=== PATIENT | female | born 1950 | race Caucasian/White ===

== ENCOUNTER → 2020-08-12 11:05 | Outpatient (BNVA) | payer OTHER, SELFPAY | PROVIDERS: PCP Internal Medicine; Visit Provider Internal Medicine Pulmonary Disease | DX: Z76.89 Persons encountering health services in other specified circumstances (principal) ==

== ENCOUNTER → 2021-03-12 14:00 | Outpatient (BNVA) | payer OTHER, SELFPAY | PROVIDERS: PCP Internal Medicine; Visit Provider Internal Medicine Pulmonary Disease ==

== ENCOUNTER 2021-03-20 10:51 | Outpatient (REF) | payer OTHER, SELFPAY ==
--- NOTE | ~2021-03-20 | CT_ITS ---
EXAMINATION: CT CHEST WITHOUT CONTRAST CLINICAL INFORMATION: Followup pulmonary nodules. COMPARISON: Previous chest CT February 2019 TECHNIQUE: Multidetector volumetric CT imaging of the chest was done. Axial MIP volume rendering provided. Sagittal and coronal reformatted images were obtained. This CT examination was performed using dose optimization techniques as appropriate, variously including the following: *Automated exposure control *Adjustment of mA and/or kV according to patient size (this includes techniques or standardized protocols for targeted exams where dose is matched to indication/reason for exam; i.e. extremities or head) *Use of iterative reconstruction technique DLP: 119 mGy-cm FINDINGS: SAP TRAINER: Increasing elevation of the right hemidiaphragm. LUNGS: There is a 3 mm noncalcified left lower lobe nodule axial image 324 series 7 that is stable. There are small calcified nodules probably representing calcified granulomas that are stable. No new pulmonary nodule is seen. There is increasing right middle lobe atelectasis. There is increased narrowing of the right middle lobe bronchus. MEDIASTINUM: The heart does not appear enlarged. There is a small pericardial effusion that is stable. There are no enlarged hilar or mediastinal lymph nodes. The visualized thyroid gland is unremarkable. PLEURA: There is no pleural effusion. No pleural mass or thickening. AXILLA: No lymphadenopathy. UPPER ABDOMEN: The gallbladder has been removed. There are calcifications in the pancreas and dilatation of the main pancreatic duct suggestive of changes from chronic pancreatitis. There is a 4 x 5 cm cyst in the tail of the pancreas that is unchanged. OSSEOUS STRUCTURES: There are multiple compression fractures. There is a new T7 vertebral body compression fracture. There is a soghskyb-ma-vkevob old-appearing T8 vertebral body compression fracture that is unchanged. There are T11, T12 and L1 vertebral body compression fractures that appear unchanged. There is an old left rib fracture. There are degenerative changes of the spine and shoulder joints. CT/CT chest wo con IMPRESSION: Increasing right middle lobe atelectasis and narrowing of the right middle lobe bronchus. Stable small calcified and noncalcified pulmonary nodules. Multiple thoracic and lumbar compression fractures. There is a new T7 vertebral body compression fracture compared to the 2019 exam. Stable changes of chronic pancreatitis and 4 x 5 cm cyst in the tail of the pancreas.
== END 2021-03-20 10:52 | disposition home or self-care (01) ==
LOC: HO.CT 10:51
PROVIDERS: PCP Internal Medicine; Visit Provider Internal Medicine Pulmonary Disease
DX: R91.8 Other nonspecific abnormal finding of lung field (principal); R05 Cough
CPT/HCPCS: 71250

== ENCOUNTER → 2021-05-29 15:17 | Outpatient (BNVA) | payer OTHER, SELFPAY | PROVIDERS: PCP Internal Medicine; Visit Provider Internal Medicine Pulmonary Disease ==

== ENCOUNTER → 2021-07-08 14:02 | Outpatient (REF) | payer OTHER, SELFPAY ==
--- NOTE | 2021-07-08 14:04 | CA_ITS ---
INDICATIONS: DYSPNEA HT: 5'9 WT: 155 BSA: BP: 137/90 STUDY QUALITY: Fair ECG RHYTHM: Normal sinus rhythm CONCLUSIONS: 1. Normal LV systolic function with LVEF of 60-65% with grade 1 diastolic dysfunction 2. Normal cardiac valvular Doppler 3. Normal RV systolic pressure 4. No gross pericardial effusion FINDINGS: Left ventricle: Left ventricle is of normal size with normal systolic function. Measured LV ejection fraction of 60-65%. There is evidence of mild asymmetric septal hypertrophy without any evidence of obstructive physiology. LV diastolic function is suggestive grade 1 diastolic dysfunction with evidence of impaired relaxation filling pattern as well as normal filling pressures. Atria: Both atria of normal size. There is no clear evidence of any shunting noted at the interatrial septal level Right ventricle: This is of normal size with normal systolic function. Cardiac valves: Aortic valve is moderately thickened and mildly calcified. Aortic valve leaflet mobility is within normal limits. There is no significant aortic stenosis or aortic regurgitation Mitral valve, anterior leaflet is mildly thickened. Posterior leaflet is moderately thickened. There is evidence of mild mitral calcification. There is trace mitral regurgitation without evidence of mitral stenosis Tricuspid valve is of normal morphology with trace tricuspid regurgitation with normal calculated right ventricular systolic pressure with right atrial pressure is within normal limits Pulmonic valve is not well visualized Great vessels: Ascending aorta is of normal size. Transverse aorta is of normal size. There is no significant atherosclerosis noted in the ascending aorta Pulmonary arteries not well visualized IVC is of normal size with normal respiratory collapse consistent with normal right atrial pressures Pericardium: There is no significant pericardial effusion M-MODE/2 MEASUREMENTS: LVd: 3.82 LVs: 2.38 IVSd: 1.33 IVSs: LVPWd: 1.12 LVPWs: ASC.Aorta: 3.3 RVd: 3.49 AO Root: 3.4 LA: 3.9 AV Cusp: LVOT: 2.0 EF% TAPSE: 2.07 OTHER Effusion: Thrombus: Wall Motion: RVSP: 24 mmHg Mitral E/A 76/86.4 = 0.9 E Med. 7.29 E Lat. 8.92 AV Cusps Trieleaflet: DOPPLER MEASUREMENTS: AORTIC PPG 6 mmHg MF mmHg Velocity: 124 m/s Valve Area: 2.09 TRICUSPID Effusion: THROMBUS: Wall Motion: RVSP: 24 mmHg Mitral E/A: 76/86.4 = 0.9 E Med. 7.29 E Lat. 8.92 AV Cusps Trileaflet: DOPPLER MEASUREMENTS: AORTIC PPG 6 mmHg MFG 3 mmHg Velocity 124 m/s Valve Area 2.09 TRICUSPID: PPG 21 mmHg Velocity 131 m/s RA Vol. 8.8 IVC: 1.9 LA Vol. 28.5 RVS 13.2 MTDD
== END ==
LOC: HO.CARD 14:02
PROVIDERS: PCP Internal Medicine; Visit Provider Internal Medicine Pulmonary Disease
DX: R06.00 Dyspnea, unspecified (principal)
CPT/HCPCS: 93306

== ENCOUNTER → 2021-07-20 15:21 | Outpatient (BNVA) | payer OTHER, SELFPAY | PROVIDERS: PCP Internal Medicine; Visit Provider Internal Medicine Pulmonary Disease ==

== ENCOUNTER → 2021-11-19 12:54 | Outpatient (BNVA) | payer OTHER, SELFPAY | PROVIDERS: PCP Internal Medicine; Visit Provider Internal Medicine Pulmonary Disease | DX: Z13.89 Encounter for screening for other disorder (principal) ==

== ENCOUNTER 2021-11-27 12:56 | Outpatient (REF) | payer OTHER, SELFPAY ==
--- NOTE | 2021-11-27 17:20 | PFT_ITS ---
INDICATION: Dyspnea. SPIROMETRY: The FEV1 to FVC of 71% with an FEV1 of 2.2 L, which is 79% predicted and an FVC of 2.09 L which is 84% predicted. No significant response to bronchodilators noted. Maximum voluntary ventilation 78% predicted. LUNG VOLUMES: Total lung capacity 95% predicted with a residual volume 111% predicted. DIFFUSION CAPACITY: DLCO 41% predicted. COMPARISONS: PFTs in 2019. INTERPRETATION: There appears to be an obstructive ventilatory defect. The patient does have a concavity of the expiratory limb, which appears to be mild in severity. No significant response to bronchodilators noted. There is a mild decrease in maximum voluntary ventilation secondary to likely deconditioning. Lung volumes are within normal limits. The patient, however, has a taxdqdti-ie-cfbjyn diffusion impairment likely secondary to emphysema and/or other parenchymal lung conditions should be considered. When compared to 2019, there is a significant decrease in the FVC, significant decrease in the FEV1, a trend decrease in the total lung capacity, and trend decrease in the diffusion capacity. Clinical correlation warranted. MD ASHWIN Stewart/KEENAN / [phone]
== END 2021-11-27 12:57 | disposition home or self-care (01) ==
LOC: HO.RESP 12:56
PROVIDERS: PCP Internal Medicine; Visit Provider Internal Medicine Pulmonary Disease
DX: J44.9 Chronic obstructive pulmonary disease, unspecified (principal); R06.00 Dyspnea, unspecified
CPT/HCPCS: 94060; 94727; 94729

== ENCOUNTER 2022-02-26 08:48 | Outpatient (REF) | payer OTHER, SELFPAY ==
--- NOTE | ~2022-02-26 | CT_ITS ---
EXAMINATION: CT CHEST WITHOUT CONTRAST CLINICAL INFORMATION: Pulmonary nodules. COMPARISON: CT chest 03/20/2021. TECHNIQUE: Multidetector volumetric CT imaging of the chest was done. Axial MIP volume rendering provided. Sagittal and coronal reformatted images were obtained. This CT examination was performed using dose optimization techniques as appropriate, variously including the following: *Automated exposure control *Adjustment of mA and/or kV according to patient size (this includes techniques or standardized protocols for targeted exams where dose is matched to indication/reason for exam; i.e. extremities or head) *Use of iterative reconstruction technique DLP: 196 mGy-cm FINDINGS: REHABILITATION SPECIALIST: Unremarkable. LUNGS: There is 2 mm calcified nodule right lung apex image 82/7, left upper lobe axial image 107/7, 2 mm calcified nodule right upper lobe axial image 206/7, 194/7, 257/7, 3 mm noncalcified nodule left lower lobe axial image 300/7. There are no additional noncalcified nodules seen there is band-like atelectasis right lower lobe, right middle lobe. MEDIASTINUM: The heart size and the great vessels are normal caliber. Tiny pericardial effusion is noted. No abnormal sized mediastinal or hilar lymph nodes. Central trachea and the bronchi appear widely patent. Thyroid lobes are symmetric and normal. There is atherosclerotic calcification of thoracic arch noted. PLEURA: There is no pleural effusion. No pleural mass or thickening. AXILLA: No lymphadenopathy. UPPER ABDOMEN: Visualized liver, spleen and adrenal glands appear unremarkable. Gallbladder removed. There is diffuse calcification seen throughout the pancreas likely from chronic pancreatitis. OSSEOUS STRUCTURES: No lytic or sclerotic process seen. There are compression deformities T7, T8, T11 and T12 vertebra of indeterminate etiology. They are stable compared to last exam 03/20/2021. CT/CT chest wo con IMPRESSION: Stable multiple calcified and solitary noncalcified nodule left lower lobe. There is band-like atelectasis in the right lower lobe and plate-like atelectasis in the right middle lobe. Fleischner guidelines were followed.
== END 2022-02-26 08:49 | disposition home or self-care (01) ==
LOC: HO.CT 08:48
PROVIDERS: PCP Internal Medicine; Visit Provider Internal Medicine Pulmonary Disease
DX: R91.8 Other nonspecific abnormal finding of lung field (principal)
CPT/HCPCS: 71250

== ENCOUNTER 2022-06-24 11:46 | Outpatient (REF) | payer OTHER, SELFPAY ==
--- NOTE | ~2022-06-24 | XR_ITS ---
EXAMINATION: XR LUMBOSACRAL SPINE WITH OBLIQUES CLINICAL INFORMATION: Dorsalgia. COMPARISON: CT chest 02/26/2022. TECHNIQUE: AP, both oblique, and lateral views of the lumbar spine. Lateral view of the lumbosacral junction. FINDINGS: There is maintained lumbar lordosis. The vertebral heights are normal. There is loss of T12 vertebral height. There are degenerative disc changes L2-L3 and L3-L4 disc levels. No aggressive lytic or sclerotic process seen. There is no pars defect or listhesis on oblique views. There is diffuse osteopenia. The paravertebral soft tissues are normal. XR/XR lumbar spine 6V w bending IMPRESSION: 1. T12 vertebral compression fracture likely chronic, unchanged since CT chest 03/10/2022. 2. Degenerative disc changes L2-L3 and L3-L4 disc levels. 3. There is diffuse osteopenia.
== END 2022-06-24 11:47 | disposition home or self-care (01) ==
LOC: HO.XRAY 11:46
PROVIDERS: Visit Provider Nurse Practitioner Family
DX: M47.816 Spondylosis without myelopathy or radiculopathy, lumbar region (principal); M54.9 Dorsalgia, unspecified
CPT/HCPCS: 72114

== ENCOUNTER → 2022-11-19 11:07 | Outpatient (BNVA) | payer OTHER, SELFPAY | PROVIDERS: PCP Internal Medicine; Visit Provider Internal Medicine Pulmonary Disease | DX: Z13.89 Encounter for screening for other disorder (principal) ==

== ENCOUNTER 2023-05-06 13:18 | Outpatient (AMB) | payer OTHER, SELFPAY ==
[2023-05-06 13:20] VITALS: BP 146/82; PULSE 81; O2SAT 98; BMI 24.1
--- NOTE | 2023-05-06 13:20 | MHC.OFFVIS ---
Intake Vital Signs 05/06/23 13:20 Height 5 ft 9 in Weight 163 lb 2.273 oz BMI 24.1 BP 146/82 H Blood Pressure Location Rt brachial Position Sitting Pulse 81 Pulse Source Doppler Pulse Oximetry (%) 98 Oxygen Delivery Method Room Air Intake Visit Reasons: Dyspnea Allergies penicillin V Allergy (Unknown, Verified 05/06/23 13:23) Unknown HPI Dyspnea HPI Details 73-year-old lady, active approximately 30 pack-year smoker, with underlying history of multiple environmental allergies, previously on allergy shots, with prior history of remote septoplasty after nasal fractures, followed for chronic cough and mild asthma-COPD overlap syndrome.? She continues on Trelegy with good control of her underlying symptoms and rarely needs to use her albuterol MDI.? She denies any recent exacerbations. Patient has recently been hospitalized at [facility] for what appears to be symptomatic bradycardia with possible paroxysmal AFib/tachy-temitope syndrome. She has not had cardiology follow-up yet. [facility] Medical History Asthma-COPD overlap syndrome Back pain Chronic cough Osteoporosis Pulmonary nodules Thoracic compression fracture Social History Household Members: None Years Smoked: 25-30yrs Second Hand Smoke Exposure: No Review of Systems Const Denies daytime sleepiness, Denies excessive sweating, Denies fatigue, Denies fever(s), Denies lethargy, Denies malaise, Denies night sweats, Denies snoring and Denies weight loss Eyes Denies blurry vision and Denies itchy eyes ENT Denies nasal congestion, Denies post nasal drip, Denies sinus pain, Denies sinus pressure and Denies other ( Thrush) Card Denies chest pain, Denies pedal edema, Denies dyspnea, Denies orthopnea, Denies paroxysmal nocturnal dyspnea and Reports slow heart rate Resp Denies cough, Denies hemoptysis, Denies excessive phlegm production, Denies dyspnea, Denies snoring and Denies wheezing GI Denies abdominal pain and Denies heartburn Musc Denies myalgias, Denies arthralgias and Denies joint swelling Skin/Breast Denies rash Neuro Denies memory loss and Denies seizure-like activity Psych Denies abnormal sleep pattern, Denies anxiety and Denies memory loss Endo Denies excessive sweating, Denies fatigue and Denies heat intolerance Juan Carlos/Lymph Denies easy bruising Aller/Immun Denies itchy eyes, Denies seasonal rhinorrhea and Denies wheezing Physical Exam Vital Signs: Last Vital Signs Pulse 81 05/06/23 13:20 BP 146/82 H 05/06/23 13:20 Pulse Ox 98 05/06/23 13:20 Oxygen Delivery Method Room Air 05/06/23 13:20 BMI result Body Mass Index 24.1 Const General: no acute distress and alert Nutritional Appearance: not obese Orientation/consciousness: Other orientation findings ( oriented) HEENT Head: Yes atraumatic Eyes General: appearance normal, both eyes and all related structures Sclerae: sclerae normal EOM: EOMs intact bilaterally Neck Neck: Yes supple Lymphatic: no lymphadenopathy noted Resp Effort & Inspection: normal respiratory effort and no use of accessory muscles Auscultation: clear to auscultation bilaterally Cardio Rate: regular rate Rhythm: regular rhythm Heart sounds: no gallops, no murmurs and no rubs Skin General skin exam: other ( warm) Extrem General: No clubbing, No cyanosis and No edema Assessment & Plan Assessment & Plan (1) Asthma-COPD overlap syndrome: Code(s): J44.9 - Chronic obstructive pulmonary disease, unspecified Plan: Baseline reasonable control with Trelegy and albuterol MDI. Continue current regimen. Restart pulmonary rehab. (2) Symptomatic bradycardia: Code(s): R00.1 - Bradycardia, unspecified Plan: Several episodes of what appears to be symptomatic bradycardia with possible underlying tachy-temitope syndrome and possible paroxysmal AFib. Will refer to cardiology, patient prefers [facility]. Orders: Orders Pulmonary Rehab Today J44.9 - Chronic obstructive pulmonary disease, unspecified Referrals Cardiology Referral I48.0 - Paroxysmal atrial fibrillation, I49.5 - Sick sinus syndrome, R00.1 - Bradycardia, unspecified Coding Level of Care Code Est Pt Level 4 (85897) Diagnoses Asthma-COPD overlap syndrome J44.9 Symptomatic bradycardia R00.1
== END 2023-05-06 13:44 | disposition home or self-care (01) ==
PROVIDERS: PCP Internal Medicine; Visit Provider Internal Medicine Pulmonary Disease
DX: J44.9 Chronic obstructive pulmonary disease, unspecified (principal); R00.1 Bradycardia, unspecified
CPT/HCPCS: 99214

== ENCOUNTER → 2023-05-06 13:18 | Outpatient (BNVA) | payer OTHER, SELFPAY | PROVIDERS: PCP Internal Medicine; Visit Provider Internal Medicine Pulmonary Disease ==

== ENCOUNTER 2023-08-02 08:30 | Outpatient (RCR) | payer OTHER, SELFPAY | END 2023-10-21 07:17 | disposition home or self-care (01) | LOC: HO.PR 08:30 | PROVIDERS: PCP Internal Medicine; Visit Provider Internal Medicine Pulmonary Disease | DX: J45.40 Moderate persistent asthma, uncomplicated (principal) | CPT/HCPCS: 94625; 94761; 99215 ==

== ENCOUNTER 2023-08-11 10:12 | Outpatient (AMB) | payer OTHER, SELFPAY ==
[2023-08-11 10:21] VITALS: BP 140/78; PULSE 91; O2SAT 96; BMI 24.4
--- NOTE | 2023-08-11 10:21 | A.OFFVIS_ITS ---
Intake Vital Signs 08/11/23 10:21 Height 5 ft 9 in Weight 165 lb 5.547 oz BMI 24.4 BP 140/78 H Blood Pressure Location Rt brachial Position Sitting Pulse 91 Pulse Source Doppler Pulse Oximetry (%) 96 Oxygen Delivery Method Room Air Intake Visit Reasons: Dyspnea Allergies penicillin V Allergy (Unknown, Verified 05/06/23 13:23) Unknown HPI Dyspnea HPI Details 73-year-old lady, active approximately 3 0 pack-year smoker, with underlying history of multiple environmental allergies, previously on allergy shots, with prior history of remote septoplasty after nasal fractures, followed for chronic cough and mild asthma-COPD overlap syndrome.? She continues on Trelegy with good control of her underlying symptoms and rarely needs to use her albuterol MDI.?Patient has been evaluated by hydro station operator with adjustment of her underlying cardiac medication and resolution of episodes of lightheadedness. She did have recent COVID 19 it was essentially asymptomatic, however after that she has developed productive cough. ON LICENSE OF [facility] Medical History Asthma-COPD overlap syndrome Back pain Chronic cough Osteoporosis Pulmonary nodules Thoracic compression fracture Social History (Updated 08/11/23 @ 10:26 by Shweta Blanton [facility]) Household Members: None Patient Tobacco Use Status: Current everyday Tobacco user Tobacco use type: Cigarette Cigarette Packs Per Day: 0.5 Years Smoked: 25-30yrs Second Hand Smoke Exposure: No Review of Systems Const Denies daytime sleepiness, Denies excessive sweating, Denies fatigue, Denies fever(s), Denies lethargy, Denies malaise, Denies night sweats, Denies snoring and Denies weight loss Eyes Denies blurry vision and Denies itchy eyes ENT Denies nasal congestion, Denies post nasal drip, Denies sinus pain, Denies sinus pressure and Denies other ( Thrush) Card Denies chest pain, Denies pedal edema, Denies dyspnea, Denies orthopnea and Denies paroxysmal nocturnal dyspnea Resp Reports cough, Denies hemoptysis, Reports excessive phlegm production, Denies dyspnea, Denies snoring and Denies wheezing GI Denies abdominal pain and Denies heartburn Musc Denies myalgias, Denies arthralgias and Denies joint swelling Skin/Breast Denies rash Neuro Denies memory loss and Denies seizure-like activity Psych Denies abnormal sleep pattern, Denies anxiety and Denies memory loss Endo Denies excessive sweating, Denies fatigue and Denies heat intolerance Juan Carlos/Lymph Denies easy bruising Aller/Immun Denies itchy eyes, Denies seasonal rhinorrhea and Denies wheezing Physical Exam Vital Signs: Last Vital Signs Pulse 91 08/11/23 10:21 BP 140/78 H 08/11/23 10:21 Pulse Ox 96 08/11/23 10:21 Oxygen Delivery Method Room Air 08/11/23 10:21 BMI result Body Mass Index 24.4 Const General: no acute distress and alert Nutritional Appearance: not obese Orientation/consciousness: Other orientation findings ( oriented) HEENT Head: Yes atraumatic Eyes General: appearance normal, both eyes and all related structures Sclerae: sclerae normal EOM: EOMs intact bilaterally Neck Neck: Yes supple Lymphatic: no lymphadenopathy noted Resp Effort & Inspection: normal respiratory effort and no use of accessory muscles Auscultation: clear to auscultation bilaterally Cardio Rate: regular rate Rhythm: regular rhythm Heart sounds: no gallops, no murmurs and no rubs Skin General skin exam: other ( warm) Extrem General: No clubbing, No cyanosis and No edema Assessment & Plan Assessment & Plan (1) Asthma-COPD overlap syndrome: Code(s): J44.9 - Chronic obstructive pulmonary disease, unspecified Plan: Baseline controlled on Trelegy and albuterol MDI. Continue current regimen. (2) Chronic cough: Code(s): R05 - Cough Plan: Now with an acute exacerbation, will treat with a course of azithromycin. Medications: New azithromycin For 250 mg dose pack: take 500 mg today (day 1), then 250 mg for 4 days (days 2-5) PO 6 tabs 0RF Discontinued levofloxacin Discontinued Reason: Doctor's Order 750 mg PO DAILY 7 tabs 0RF Coding Level of Care Code Est Pt Level 4 (53255) Diagnoses Asthma-COPD overlap syndrome J44.9 Chronic cough R05
== END 2023-08-11 10:36 | disposition home or self-care (01) ==
PROVIDERS: PCP Internal Medicine; Visit Provider Internal Medicine Pulmonary Disease
DX: J44.9 Chronic obstructive pulmonary disease, unspecified (principal); R05.9 Cough, unspecified
CPT/HCPCS: 99214

== ENCOUNTER → 2023-08-11 10:12 | Outpatient (BNVA) | payer OTHER, SELFPAY | PROVIDERS: PCP Internal Medicine; Visit Provider Internal Medicine Pulmonary Disease ==

== ENCOUNTER 2024-03-14 09:06 | Outpatient (AMB) | payer OTHER, SELFPAY ==
[2024-03-14 09:08] VITALS: BP 137/82; PULSE 86; O2SAT 98; BMI 22.7
--- NOTE | 2024-03-14 09:08 | A.OFFVIS_ITS ---
Vital Signs 03/14/24 09:08 Height 5 ft 9 in Weight 154 lb BMI 22.7 BP 137/82 Blood Pressure Location Rt brachial Position Sitting Pulse 86 Pulse Source Doppler Pulse Oximetry (%) 98 Oxygen Delivery Method Room Air Intake Visit Reasons: Dyspnea Allergies penicillin V Allergy (Unknown, Verified 05/06/23 13:23) Unknown HPI HPI Dyspnea: Details: 73-year-old lady, active approximately 30 pack-year smoker, with underlying history of multiple environmental allergies, previously on allergy shots, with prior history of remote septoplasty after nasal fractures, followed for chronic cough and mild asthma-COPD overlap syndrome.? She continues on Trelegy previously with good control of her underlying symptoms and rarely needs to use her albuterol MDI until hot whether during the summer months.? She denies any recent exacerbations. [facility] Medical History Asthma-COPD overlap syndrome Back pain Chronic cough Osteoporosis Pulmonary nodules Thoracic compression fracture Social History (Updated 08/11/23 @ 10:26 by Shweta Blanton [facility]) Household Members: None Patient Tobacco Use Status: Current everyday Tobacco user Tobacco use type: Cigarette Cigarette Packs Per Day: 0.5 Years Smoked: 25-30yrs Second Hand Smoke Exposure: No Review of Systems Const Denies daytime sleepiness, Denies excessive sweating, Denies fatigue, Denies fever(s), Denies lethargy, Denies malaise, Denies night sweats, Denies snoring and Denies weight loss Eyes Denies blurry vision and Denies itchy eyes ENT Denies nasal congestion, Denies post nasal drip, Denies sinus pain, Denies sinus pressure and Denies other ( Thrush) Card Denies chest pain, Denies pedal edema, Denies dyspnea, Denies orthopnea and Denies paroxysmal nocturnal dyspnea Resp Denies cough, Denies hemoptysis, Denies excessive phlegm production, Denies dyspnea, Denies snoring and Denies wheezing GI Denies abdominal pain and Denies heartburn Musc Denies myalgias, Denies arthralgias and Denies joint swelling Skin/Breast Denies rash Neuro Denies memory loss and Denies seizure-like activity Psych Denies abnormal sleep pattern, Denies anxiety and Denies memory loss Endo Denies excessive sweating, Denies fatigue and Denies heat intolerance Juan Carlos/Lymph Denies easy bruising Aller/Immun Denies itchy eyes, Denies seasonal rhinorrhea and Denies wheezing Physical Exam Vital Signs: Last Vital Signs Pulse 86 03/14/24 09:08 BP 137/82 03/14/24 09:08 Pulse Ox 98 03/14/24 09:08 Oxygen Delivery Method Room Air 03/14/24 09:08 BMI result Body Mass Index 22.7 Const General: no acute distress and alert Nutritional Appearance: not obese Orientation/consciousness: Other orientation findings ( oriented) HEENT Head: Yes atraumatic Eyes General: appearance normal, both eyes and all related structures Sclerae: sclerae normal EOM: EOMs intact bilaterally Neck Neck: Yes supple Lymphatic: no lymphadenopathy noted Resp Effort & Inspection: normal respiratory effort and no use of accessory muscles Auscultation: clear to auscultation bilaterally Cardio Rate: regular rate Rhythm: regular rhythm Heart sounds: no gallops, no murmurs and no rubs Skin General skin exam: other ( warm) Extrem General: No clubbing, No cyanosis and No edema Assessment & Plan Assessment & Plan (1) Asthma-COPD overlap syndrome: Code(s): J44.9 - Chronic obstructive pulmonary disease, unspecified Category: Medical Plan: Now suboptimally controlled on Trelegy and albuterol MDI. Will add theophylline. (2) Personal history of nicotine dependence: Code(s): Z87.891 - Personal history of nicotine dependence Category: Medical Plan: Will request lung cancer screening CT chest. Orders: Orders CT lung screening 07/15/24 Z87.891 - Personal history of nicotine dependence Medications: New theophylline ER 400 mg PO DAILY 30 tabs 6RF Coding Level of Care Code Est Pt Level 4 (43322) Diagnoses Asthma-COPD overlap syndrome J44.9 Personal history of nicotine dependence Z87.891
== END 2024-03-14 09:32 | disposition home or self-care (01) ==
PROVIDERS: PCP Internal Medicine; Visit Provider Internal Medicine Pulmonary Disease
DX: J44.9 Chronic obstructive pulmonary disease, unspecified (principal); Z87.891 Personal history of nicotine dependence
CPT/HCPCS: 99214

== ENCOUNTER → 2024-03-14 09:06 | Outpatient (BNVA) | payer OTHER, SELFPAY | PROVIDERS: PCP Internal Medicine; Visit Provider Internal Medicine Pulmonary Disease ==

== ENCOUNTER 2024-07-16 10:01 | Outpatient (REF) | payer OTHER, SELFPAY | END 2024-07-16 10:02 | disposition home or self-care (01) | LOC: HO.CT 10:01 | PROVIDERS: PCP Internal Medicine; Visit Provider Internal Medicine Pulmonary Disease | DX: Z12.2 Encounter for screening for malignant neoplasm of respiratory organs (principal); Z87.891 Personal history of nicotine dependence | CPT/HCPCS: 71271 ==

== ENCOUNTER → 2024-07-16 10:01 | Outpatient (BNV) | payer OTHER, SELFPAY | PROVIDERS: PCP Internal Medicine; Visit Provider Radiology Diagnostic Radiology | DX: Z87.891 Personal history of nicotine dependence (principal) | CPT/HCPCS: 71271 ==

== ENCOUNTER 2024-08-20 12:45 | Outpatient (AMB) | payer OTHER, SELFPAY ==
--- NOTE | 2024-08-19 20:56 | MHC.OFFVIS ---
Vital Signs 08/20/24 12:52 Height 5 ft 9 in Weight 159 lb 13.362 oz BMI 23.6 BP 140/76 H Blood Pressure Location Rt brachial Position Sitting Pulse 78 Pulse Source Pulse Oximeter Pulse Oximetry (%) 98 Oxygen Delivery Method Room Air Intake Visit Reasons: productive cough Allergies penicillin V Allergy (Unknown, Verified 08/20/24 12:55) Unknown HPI HPI productive cough: Details: Marina is a pleasant 73-year-old female, current smoker with 30+ pyh, with underlying history of multiple environmental allergies on allergen immunotherapy, with prior history of remote septoplasty after nasal fractures, followed for chronic cough and mild asthma-COPD overlap syndrome.?At baseline, she is well controlled on Trelegy, Singulair, Theophylline and albuterol MDI. She is under the care of Dr. Valiente and presents today for an acute visit. She reports over a week history of progressively worsening productive cough with green sputum, dyspnea, sinus congestion and associated chest tightness, not relieved with albuterol MDI. She denies fever, or chills. Negative Covid test. [facility] Medical History Asthma-COPD overlap syndrome Back pain Chronic cough Osteoporosis Pulmonary nodules Thoracic compression fracture Social History Household Members: None Patient Tobacco Use Status: Current everyday Tobacco user Tobacco use type: Cigarette Cigarette Packs Per Day: 0.5 Years Smoked: 25-30yrs Second Hand Smoke Exposure: No Review of Systems Const Denies chills, Denies excessive sweating, Denies fever(s), Denies headache(s) and Denies night sweats Eyes Denies dry eyes, Denies irritation and Denies itchy eyes ENT Reports Normal hearing present and Denies headache(s) Card Denies chest pain, Denies chest pain at rest, Denies chest pain with activity, Denies claudication, Denies leg edema, Denies orthopnea and Denies paroxysmal nocturnal dyspnea Resp Denies pain on inspiration, Denies pain with cough and Denies stridor Musc Denies myalgias Neuro Reports Normal hearing present and Denies headache(s) Endo Denies excessive sweating Juan Carlos/Lymph Denies lymphadenopathy Aller/Immun Denies itchy eyes and Denies seasonal rhinorrhea Physical Exam Vital Signs: Last Vital Signs Pulse 78 08/20/24 12:52 BP 140/76 H 08/20/24 12:52 Pulse Ox 98 08/20/24 12:52 Oxygen Delivery Method Room Air 08/20/24 12:52 BMI result Body Mass Index 23.6 Const General: cooperative, healthy appearing, comfortable, no acute distress, well developed and alert Orientation/consciousness: patient oriented x3 Limitations: no limitations HEENT Head: Yes normal to inspection, Yes normocephalic and Yes atraumatic Ears: hearing grossly normal bilaterally and external ears normal Eyes General: appearance normal, both eyes and all related structures Eyelids: Yes eyelids normal Sclerae: sclerae normal EOM: EOMs intact bilaterally Neck Neck: Yes normal visual inspection and Yes no lymphadenopathy Lymphatic: no lymphadenopathy noted Chest Chest palpation & inspection: normal inspection of the chest Resp Effort & Inspection: normal respiratory effort, able to speak in complete sentences, no audible wheezes, no cough, no stridor, not tachypneic, no tripod positioning and no use of accessory muscles Auscultation: clear to auscultation bilaterally Cardio Jugular venous distension: no JVD Rate: regular rate Rhythm: regular rhythm Skin Other: warm, dry General skin exam: no rashes or lesions noted Neuro General: patient oriented x3 Cranial nerves: Yes Normal hearing present Cognition (Neuro): normal cognition Gait exam (Neuro): Normal gait present Extrem General: Yes normal to inspection, Yes capillary refill normal, Yes no clubbing, cyanosis or edema and Yes no pedal edema Psych Appearance: grossly normal and well kempt Speech and movement: Normal speech and movement present and Clear speech present Affect: normal affect Attitude: cooperative Thought process: Normal thought process present Thought content: Normal thought content present Insight: Good insight present (Psych) Judgement: Good judgement present (Psych) Assessment & Plan Assessment & Plan (1) Asthma-COPD overlap syndrome: Code(s): J44.9 - Chronic obstructive pulmonary disease, unspecified Category: Medical (2) Cough: Code(s): R05.9 - Cough, unspecified Category: Medical Plan Will treat bronchitic symptoms with doxycycline and codeine cough syrup. Reviewed side effects including drowsiness associated with cough syrup. She is aware to call if symptoms do not improve. All questions were answered and patient is in agreement of plan. Will follow up with Dr. Valiente for regularly scheduled appointment or sooner if needed. Medications: New doxycycline hyclate 100 mg PO BID 14 caps 0RF albuterol sulfate 90 mcg/actuation 2 puffs inhalation Q4-6H PRN 1 ea 3RF shortness of breath or wheezing montelukast 10 mg PO DAILY 30 tabs 3RF codeine-guaifenesin 10-100 mg/5 mL 10 mL PO Q6H PRN 118 mL 0RF cough Refilled hjlaxzxuptc-otyvustaj-szbiwbhu 200-62.5-25 mcg (Trelegy Ellipta) 1 ea PO DAILY 60 ea 3RF R06.00 - Dyspnea, unspecified Discontinued azithromycin Discontinued Reason: No Longer Medically Relevant For 250 mg dose pack: take 500 mg today (day 1), then 250 mg for 4 days (days 2-5) PO 6 tabs 0RF Coding Level of Care Code Est Pt Level 4 (67292) Diagnoses Asthma-COPD overlap syndrome J44.9 Cough R05.9
--- OUTSIDE RECORDS SUMMARY | 2024-08-20 12:48 | XMS_ITS ---
[facility] Sullivan Address [address] [facility] [place] [address] Care Team Providers Care Diagnostics Sales Developer Name Role Phone Wilbert SIMPSON, Silverio Primary Care Provider Jennifer vailable Hollie Barksdale Unavailable [phone] REASON FOR VISIT buy formula 7 Encounters Encounter [facility] Date [facility] [address] [facility]/21/[facility]23 Hollie Barksdale Plan Of Treatment Next Appt Details Provider Name:Hollie Hoang Shamir , 10/24/2024 11:00:00 AM, [address] [facility], [place], [address], Progress Notes * Marina SPRAGUE TDOB:[birth year] (73 yo F)Acc No.[id number]:10/21/2023 Patient:?Marina Sprague :1950???Age:73 Y???Sex:Female Address:[address] [place] [address] * true * Date:? Generated for Printi ng/Faxing/eTransmitting on:?08/20/2024 09:59 AM EST
--- OUTSIDE RECORDS SUMMARY | 2024-08-20 12:48 | XMS_ITS ---
Author Organization [facility] Address [address] [facility] [place] [address] Care Team Providers Care Traffic Observer Name Role Phone Wilbert SIMPSON, Silverio Primary Care Provider Jennifer vailable Black, Hollie Unavailable [phone] Allergies Allergen (clinical drug ingredient) Drug/Non Drug Allergy documented on EMR Reaction Allergy Type Onset Date Status Shrimp Flavor Unknown Drug Allergy Act antonio Milk-related Compounds Unknown Drug Allergy Active REASON FOR VISIT At Risk Footcare Medications Medication SIG (Take, Route, Frequency, Duration) Notes Start Date End Date Status Nystatin-Triamcinolone 280751-1.1 UNIT/GM APPLY DAILY TO SKIN TO AFFECTED AREA TWICE A DAY FOR 2 WEEKS for 30 Not-Takin g Ciclopirox Olamine 0.77 % APPLY TO AFFECTED AREA EXTERNALLY TO FEET TWICE A DAY 30 DAYS for 30 Not-Taking Gabapentin 300 MG 1 capsule before bed time Orally Once a day Not-Taking Doxycycline Not-Taki ng Terbinafine HCl 250 MG 1 tablet Orally O nce a day for 7 days days then stop for 3 weeks repeat cycle for 90 days 06/22/2022 Not-Taking hydrOXYzine HCl 25 MG 1 tablet as needed Orally every 8 hrs Active Vitamin C Active Vitamin B12 Active Vitamin D Active metFORMIN HCl 500 MG 1 tablet with a brice l Orally Once a day Active Trulicity 0.75 MG/0.5ML as directed Subcutaneous Active Pancreaze Active Social History Tobacco Use: Social History Observation Description Date Details (start date - stop date) Current Smoker NA - NA Tobacco Use/Smoking Question Answer Notes Are you a: current smoker How many cigarettes a day do you smoke? 11-20 Alcohol Screen Question Answer Notes Did you have a drink containing alcohol in the p ast year? No Points 0 Interpretation Negative Tobacco use other than smoking: Question Answer Notes Are you an other tobacco user? No Vital Signs Height 5ft 9in in 04/27/2024 Weight 158 lbs 04/27/2024 BMI 23.33 kg/m2 04/27/2024 Procedures Procedure Date Ordered Date Performed Result Body Sit e 68221-HSBUSXG NAIL, 6 OR MORE 04/27/2024 N/A 35629-FAVK SKIN LESIONS, 2 TO 4 04/27/2024 N/A Encounters Encounter Location Date Provider Diagnosis [facility] [address] [place] [address] 04/27/2024 Hollie Barksdale Type 2 diabetes van itus with diabetic polyneuropathy E11.42 and Tinea unguium B35.1 Assessments Encounter Date Diagnosis (ICD Code) Assessment Notes Treatment Notes Treatment Clinical Notes Section Notes 04/27/2024 Type 2 diabetes mellitus with diabetic polyneuropathy (ICD-10 - E11.42) 04/27/2024 Tinea unguium (ICD-10 - B35.1) 04/27/2024 Other Plan Of Treatment Pending Test Test Name Order Date 27784-FQHTAVL NAIL, 6 OR MORE 04/27/2024 10390-RWSU SKIN LESIONS, 2 TO 4 04/27/20 24 Next Appt Details Follow Up: prn, Reason: Provider Name:Hollie Barksdale , 10/24/2024 11:00:00 AM, [address], [place], [address], Procedure Notes * Category Sub-Category Detail Notes Debride Nail 6-10 Nail debridement Performance o f this nail treatment by a nonprofessional would put this patients foot and overall health at risk. Therefore, nail debridement was performed extensively to reduce/remove overall nail length, girth, thickness, subungual debris, and necrotic tissue, by manual and/or electrical means through the use of a nail nipper and/or dremel-type organ grinder, to a more viable healthy nail plate or bed tissue 6-10. Silver nitrate used for any petechial bleeding as necessary. Definitive antifungal treatment options have been reviewed and discussed with the patient. The patient chooses, no pharmaceutical tx - 60285 Keratoma Treatment Parring or Cutting o f Benign Hyperkeratotic Lesion(s) 18620 (2-4 Lesions) - The Benign hyperkeratotic lesions, as described above were pared, and/or cut utilizing a sterile #15 blade, tissue nippers, and/or dremel Progress Notes * Marina SPRAGUE TDOB:[birth year] (74 yo F)Acc No.[id number]:04/27/2024 Progress Note Patient:?Marina Sprague Provider:?Hollie Barksdale DPM :1950???Age:74 Y???Sex:Female D ate:04/27/2024 Address:[facility] [address], [place], [id number] Pcp:Silverio Atkins MD Subjective: * Chief Complaints: * ???At Risk Footcare * HPI: ???At Risk footcare:?Pt States Last PCP Visit:?Date?03/08/2024 * Medical History:? * Surgical History:?deviated s eptum repair section gall bladder removal Lam's neuroma appendix hard corn * Hospitalization/Major Diagno stic Procedure:?[facility] low sodium, influenza 12/15/21[facility] bp issues [facility], pneumonia 2023 * Family History:?Mother: dece ased, foot problems, poor circulation, diagnosed with Family history of arthritis, Diabetic - NIDDM.?Father: alive.? * Social History:?Tobacco Use:?Tobacco Use/Smoking?Are you a:?current smoker ?How many cigarettes a day do you smoke??11-20 ?Tobacco use other than smoking?Are you an other tobacco user??No ???Drugs/Alcohol:?Drugs?Have you used drugs other than those for medical reasons in the past 12 months??No ?Alcohol Screen?Did you have a drink containing alcohol in the past year??No ?Points?0 ?Interpretation?Negative ???Miscellaneous:?Caffeine: yes, frequency: 10 cups a day. ?Children: yes, 2. ?Exercise: yes, walking, golf. ?Marital status: . 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 * Medications:?TakingTrulicity 0.75 MG/0.5ML Solution Pen-injector as directed Subcutaneous Pancreaze metFORMIN HCl 500 MG Tablet 1 tablet with a meal Orally Once a dayhydrOXYzine HCl 25 MG Tablet 1 tablet as needed Orally every 8 hrsVitamin C Vitamin B12 Vitamin D Taking Trulicity 0.75 MG/0.5ML Solution Pen-injector as directed Subcutaneous Taking Pancreaze Taking metFORMIN HCl 500 MG Tablet 1 tablet with a meal Orally Once a dayTaking hydrOXYzine HCl 25 MG Tablet 1 tablet as needed Orally every 8 hrsTaking Vitamin C Taking Vitamin B12 Taking Vitamin D Not-Taking/PRNNystatin-Triamcinolone 452802-3.1 UNIT/GM Cream APPLY DAILY TO SKIN TO AFFECTED AREA TWICE A DAY FOR 2 WEEKS Ciclopirox Olamine 0.77 % Cream APPLY TO AFFECTED AREA EXTERNALLY TO FEET TWICE A DAY 30 DAYS Gabapentin 300 MG Capsule 1 capsule before bedtime Orally Once a dayDoxycycline Terbinafine HCl 250 MG Tablet 1 tablet Orally Once a day for 7 days days then stop for 3 weeks repeat cycleMedication List reviewed and reconciled with the patientNot-Taking/PRN Nystatin- Triamcinolone 388237-3.1 UNIT/GM Cream APPLY DAILY TO SKIN TO AFFECTED AREA TWICE A DAY FOR 2 WEEKS Not-Taking/PRN Ciclopirox Olamine 0.77 % Cream APPLY TO AFFECTED AREA EXTERNALLY TO FEET TWICE A DAY 30 DAYS Not-Taking/PRN Gabapentin 300 MG Capsule 1 capsule before bedtime Orally Once a dayNot-Taking/PRN Doxycycline Not-Taking/PRN Terbinafine HCl 250 MG Tablet 1 tablet Orally Once a day for 7 days days then stop for 3 weeks repeat cycleMedication List reviewed and reconciled with the patient * Allergies:?Shrimp FlavorMilk -related Compoundsyes[Allergies Verified] Objective: * Vitals:?Ht: 5ft 9in, Wt:158, BMI:23.33, Shoe size: 10-11, BS: 129, Ht-cm: 175.26 cm, Wt-k.67 kg. * ???Past Orders: ???Lab:HEMOGLOBIN A1C (GLYCO HEMOGLOBIN) (Order Date - 04/27/2024) (Collection Date - 04/27/2024) ? Value Reference Range ?HEMOGLOBIN A1C % (HH) 6.2 * Examination: ???Ophthalmology Referral: ?DIABETES EYE EXAM?Dermatologic: ?SKIN FINDINGS:?Skin exam reveals Keratotic lesion(s) located at , Heel(s) , B/L.?Neurological: ?SENSORY:?Neurological exam demonstrates, reduced sharp/dull pin prick discrimination , reduced vibration sensation, 5.07 monofilament test performed at plantar aspects of 5 varied sites per foot shows sensation, reduced , B/L.?Vascular: ?DP PULSES:?3/4, B/L.?PT PULSES:?3/4, B/L.?CAPILLARY FILL TIME:?immediate, all digits, B/L.?Nails: ?NAILS are:?Elongated, overgrown, dystrophic, lytic, greater than 3mm thick, discolored and friable with crumbly malodorous subungual debris, with dull to no pain on palpation due to neuropathy, , 1-5 B/L.? Assessment: * Assessment: 1.?Tinea unguium - B35.1?2.? Type 2 diabetes mellitus with diabetic polyneuropathy - E11.42? Plan: * Treatment: 2.?Type 2 diabetes mellitus with diabetic polyneuropathy?Procedure: 36366-DQNB SKIN LESIONS, 2 TO 4 * Procedures:?Debride Nail 6-10:?Nail debridement?Performance of this nail treatment by a nonprofessional would put this patients foot and overall health at risk. Therefore, nail debridement was performed extensively to reduce/remove overall nail length, girth, thickness, subungual debris, and necrotic tissue, by manual and/or electrical means through the use of a nail nipper and/or dremel-type organ grinder, to a more viable healthy nail plate or bed tissue 6-10. Silver nitrate used for any petechial bleeding as necessary. Definitive antifungal treatment options have been reviewed and discussed with the patient. The patient chooses, no pharmaceutical tx - 62987.?Keratoma Treatment:?Parring or Cutting of Benign Hyperkeratotic Lesion(s)?25187 (2-4 Lesions) - The Benign hyperkeratotic lesions, as described above were pared, and/or cut utilizing a sterile #15 blade, tissue nippers, and/or dremel.? * Procedure Codes:?59260 DEBRI DE NAIL, 6 OR MORE, Modifiers: XS 76499 TRIM SKIN LESIONS, 2 TO 4, Modifiers: XS * Follow Up:?prn * Images: * Sign off status: Completed true * Provider:?Hollie Barksdale DPM Date:?2023 Generated for Khadijah fajardo/Cal/eTransmitting on:?08/20/2024 09:59 AM EST History and Physical Notes * HPI (History of Present Illness) Category Sub-Category Detail Notes Category Not es At Risk footcare Pt States Last PCP Visit: Date: Examination Category Sub-Category Detail Notes Category Not es Neurological SENSORY: Neurological exa m demonstrates, reduced sharp/dull pin prick discrimination , reduced vibration sensation, 5.07 monofilament test performed at plantar aspects of 5 varied sites per foot shows sensation, reduced , B/L Dermatologic SKIN FINDINGS: Skin exam reveal s Keratotic lesion(s) located at , Heel(s) , B/L ULCER: Ophthalmology Referral DIABETES EYE EXAM Diabetic Retinopa thy Screening:: Yes Vascular DP PULSES (B): 3/4, B/L PT PULSES (B): 3/4, B/L CAPILLARY FILL TIME: immediate, all digi ts, B/L Nails NAILS are: Elongated, overg rown, dystrophic, lytic, greater than 3mm thick, discolored and friable with crumbly malodorous subungual debris, with dull to no pain on palpation due to neuropathy, , 1-5 B/L
--- OUTSIDE RECORDS SUMMARY | 2024-08-20 12:48 | XMS_ITS ---
Author Organization [facility] Address [address] [place] [address] Care Team Providers Care [employer] Name Role Phone Wilbert SIMPSON, Silverio Primary Care Provider Jennifer vailable Black, Hollie Unavailable [phone] Allergies Allergen (clinical drug ingredient) Drug/Non Drug Allergy documented on EMR Reaction Allergy Type Onset Date Status Shrimp Flavor Unknown Drug Allergy Act antonio Milk-related Compounds Unknown Drug Allergy Active REASON FOR VISIT Open sore - Toe, At Risk Footcare Medications Medication SIG (Take, Route, Frequency, Duration) Notes Start Date End Date Status Terbinafine HCl 250 MG 1 tablet Orally O nce a day for 7 days days then stop for 3 weeks repeat cycle for 90 days 06/22/2022 Unknown Doxycycline Not-Taki ng Gabapentin 300 MG 1 capsule before bed time Orally Once a day Not-Taking Ciclopirox Olamine 0.77 % APPLY TO AFFECTED AREA EXTERNALLY TO FEET TWICE A DAY 30 DAYS for 30 Not-Taking Nystatin-Triamcinolone 345801-2.1 UNIT/GM APPLY DAILY TO SKIN TO AFFECTED AREA TWICE A DAY FOR 2 WEEKS for 30 Active Vitamin D Active Vitamin B12 Active Vitamin C Active hydrOXYzine HCl 25 MG 1 tablet as needed Orally every 8 hrs Active metFORMIN HCl 500 MG 1 tablet with a brice l Orally Once a day Active Pancreaze Active Trulicity 0.75 MG/0.5ML as directed Subcutaneous Active Social History Tobacco Use: Social History [...] Are you an other tobacco user? No Problems Problem Type SNOMED Code ICD Code Onset Dates Problem Status W/U Status Risk Notes Problem Ulcer of toe of left foot (disorder) (847921876 76201665) Skin ulcer of toe of left foot, limited to breakdown of skin (L97.521) Active confirmed Nonapplicable Problem Ulcer of toe of right foot (disorder) (714531867 05699458) Skin ulcer of toe of right foot, limited to breakdown of skin (L97.511) Active confirmed Nonapplicable Vital Signs Height 5 ft 9 in in 10/21/2023 Weight 158 lbs 10/21/2023 BMI 23.33 kg/m2 10/21/2023 Procedures Procedure Date Ordered Date Performed Result Body Sit e 25452-DXETUEH NAIL, 6 OR MORE 10/21/2023 N/A 79675- Debride <25 sq cm 10/21/2023 N/A 82261-BEPR SKIN LESIONS, 2 TO 4 10/21/2023 N/A Encounters Encounter Location Date Provider Diagnosis [facility] [address] [address] 10/21/2023 Hollie Black Skin ulcer of toe of left foot, limited to breakdown of skin L97.521 ; Skin ulcer of toe of right foot, limited to breakdown of skin L97.511 ; Type 2 diabetes mellitus with diabetic polyneuropathy E11.42 and Tinea unguium B35.1 Assessments Encounter Date Diagnosis (ICD Code) Assessment Notes Treatment Notes Treatment Clinical Notes Section Notes 10/21/2023 Skin ulcer of toe of left foot, limited to breakdown of skin (ICD-10 - L97.521) Nonapplicable Patient Educated with: WOUND CARE INSTRUCTIONS. pdf (WOUND CARE INSTRUCTIONS. pdf) 10/21/2023 Skin ulcer of toe of right foot, limited to breakdown of skin (ICD-10 - L97.511) Nonapplicable Patient Educated with: WOUND CARE INSTRUCTIONS. pdf (WOUND CARE INSTRUCTIONS. pdf) 10/21/2023 Type 2 diabetes mellitus with diabetic polyneuropathy (ICD-10 - E11.42) 10/21/2023 Tinea unguium (ICD-10 - B35.1) Plan Of Treatment Treatment Notes Assessment Notes Skin ulcer of toe of left fo ot, limited to breakdown of skin Patient Educated with: WOUND CARE INSTRUCTIONS.pdf (WOUND CARE INSTRUCTIONS.pdf) Skin ulcer of toe of right f oot, limited to breakdown of skin Patient Educated with: WOUND CARE INSTRUCTIONS.pdf (WOUND CARE INSTRUCTIONS.pdf) Pending Test Test Name Order Date 05456-AMYQYTD NAIL, 6 OR MORE 10/21/2023 89335- Debride <25 sq cm 10/21/2023 05897-ODJA SKIN LESIONS, 2 TO 4 10/21/19 24 Next Appt Details Follow Up: 2 Months, Reason: Provider Name:Hollie Barksdale , 10/24/2024 11:00:00 AM, 1981 [facility], [place], [address], Procedure Notes * Category Sub-Category Detail Notes Debride Nail 6-10 Nail debridement Nail debridem ent performed extensively to reduce/remove overall nail length and girth, subungual debris, and necrotic tissue, by manual and electrical means with use of a nail nipper and/or dremel, to more viable healthy nail plate or bed tissue 6-10. Silver nitrate used for any petechial bleeding as necessary. Patient chooses, no pharmaceutical tx (26832) Debride skin< 25 sq cm Open wound Physician of record performed open wound selective debridement of first 25 sq cm or less, of devitilized necrotic/nonviable soft tissue, fibrin, and exudate extending from the epidermis through the dermis, utilizing sharp dissection with sterile 15 blade, and/or tissue nippers. Sterile antibiotic dressing applied, ANESTHESIA- was accomplished TOPICALLY with Lidocaine Hydrochloride Jelly 2 percent. Hemostasis was achieved through direct pressure. Post debridement measurements: __ mm x __ mm x __ mm. Character of the wound post debridement is stable (72003) , Open wound selective debridement of first 25 sq cm or less, of devitilized necrotic soft tissue, fibrin, and exudate extending from the epidermis through the dermis, utilizing sharp dissection with sterile #15 blade, and/or tissue nippers. Sterile antibiotic dressing applied, ANESTHESIA- was accomplished TOPICALLY with Lidocaine Hydrochloride Jelly 2%, , WOUIND CARE: The patient was instructed on importance of proper wound care consisting of pressure reduction, maintainance of clean moist wound environment, and regular debridement of devitilized tissue , The patient is to cleanse the wound with warm soapy water/peroxide/saline or betadine BID based on product availability , The patient is to apply Antibiotic Oint. to the wound and cover with a DSD , The patient was instructed to change dressings according to orders daily, or PRN saturation, leaks, The patient was instructed to monitor and report any signs or symptoms of infection or any untoward reactions (09958) Keratoma Treatment Parring or Cutting o f Benign Hyperkeratotic Lesion(s) 86995 (2-4 Lesions) - The Benign hyperkeratotic lesions, as described above were pared, and/or cut utilizing a sterile #15 blade, tissue nippers, and/or dremel Progress Notes * Marina SPRAGUE TDOB:[birth year] (73 yo F)Acc No.[id number]:10/21/2023 Progress Notes Patient:?Celestine Marina T Provider:?Hollie Barksdale DPM :1950???Age:73 Y???Sex:Female D ate:10/21/2023 Address:[facility] [address] [facility], [id number] Pcp:Silverio Atkins MD Subjective: * Chief Complaints: * ???Open sore - ToeAt Risk Fo otcare * HPI: ???At Risk footcare:?Pt States Last PCP Visit:?Date?09/24/2022 * Medical History:? * Surgical History:?deviated s eptum repair section gall bladder removal Lam's neuroma appendix hard corn * Hospitalization/Major Diagno stic Procedure:?Cohn low sodium, influenza 12/15/21Noble bp issues 03/2023 * Family History:?Mother: dece ased, foot problems, [...] golf. ?Marital status: . 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 * Medications:?TakingTrulicity 0.75 MG/0.5ML Solution Pen-injector as directed Subcutaneous Pancreaze metFORMIN HCl 500 MG Tablet 1 tablet with a meal Orally Once a dayhydrOXYzine HCl 25 MG Tablet 1 tablet as needed Orally every 8 hrsVitamin C Vitamin B12 Vitamin D Nystatin-Triamcinolone 331153-7.1 UNIT/GM Cream APPLY DAILY TO SKIN TO AFFECTED AREA TWICE A DAY FOR 2 WEEKS Taking Trulicity 0.75 MG/0.5ML Solution Pen-injector as directed Subcutaneous Taking Pancreaze Taking metFORMIN HCl 500 MG Tablet 1 tablet with a meal Orally Once a dayTaking hydrOXYzine HCl 25 MG Tablet 1 tablet as needed Orally every 8 hrsTaking Vitamin C Taking Vitamin B12 Taking Vitamin D Taking Nystatin-Triamcinolone 624078-8.1 UNIT/GM Cream APPLY DAILY TO SKIN TO AFFECTED AREA TWICE A DAY FOR 2 WEEKS Not-Taking/PRNCiclopirox Olamine 0.77 % Cream APPLY TO AFFECTED AREA EXTERNALLY TO FEET TWICE A DAY 30 DAYS Gabapentin 300 MG Capsule 1 capsule before bedtime Orally Once a dayDoxycycline Not-Taking/PRN Ciclopirox Olamine 0.77 % Cream APPLY TO AFFECTED AREA EXTERNALLY TO FEET TWICE A DAY 30 DAYS Not-Taking/PRN Gabapentin 300 MG Capsule 1 capsule before bedtime Orally Once a dayNot-Taking/PRN Doxycycline UnknownTerbinafine HCl 250 MG Tablet 1 tablet Orally Once a day for 7 days days then stop for 3 weeks repeat cycleMedication List reviewed and reconciled with the patientUnknown Terbinafine HCl 250 MG Tablet 1 tablet Orally Once a day for 7 days days then stop for 3 weeks repeat cycleMedication List reviewed and reconciled with the patient * Allergies:?Shrimp FlavorMilk -related Compoundsyes[Allergies Verified] Objective: * Vitals:?Ht: 5 ft 9 in, Wt: 1 58, BMI:23.33, Shoe size: 10-11, BS: 83. * ???Past Orders: ???Lab:HEMOGLOBIN A1C (GLYCO HEMOGLOBIN) (Order Date - 08/03/2023) (Collection Date - 08/03/2023) ? Value Reference Range ?TOTAL HEMOGLOBIN (HGBA1C) 7.2 * Examination: ???Ophthalmology Referral: ?DIABETES EYE EXAM?Dermatologic: ?SKIN FINDINGS:?Skin exam reveals Keratotic lesion(s) located at , Heel(s) , B/L.?ULCER:? LOCATION, TA, SIZE, 4mm X 3mm X 2mm, BASE, granular, RIM, hyperkeratotic, UNDERMINING, absent, TRACKING, Full thickness breakdown of skin, DRAINAGE, serosanguineous, mild, NECROTIC TISSUE, loosely-adherent, yellow slough, MALODOR, absent, CALOR, absent, ERYTHEMA, absent, PAIN ON PALPATION, present , T5 LOCATION, SIZE, 8mm X 3mm X 2mm, BASE, granular, RIM, hyperkeratotic, UNDERMINING, absent, TRACKING, Full thickness breakdown of skin, DRAINAGE, serosanguineous, mild, NECROTIC TISSUE, loosely-adherent, yellow slough, MALODOR, absent, CALOR, absent, ERYTHEMA, absent, PAIN ON PALPATION, present.?Neurological: ?SENSORY:?Neurological exam demonstrates, reduced sharp/dull pin prick discrimination , reduced vibration sensation, 5.07 monofilament test performed at plantar aspects of 5 varied sites per foot shows sensation, reduced , B/L.?Vascular: ?DP PULSES:?3/4, B/L.?PT PULSES:?3/4, B/L.?CAPILLARY FILL TIME:?immediate, all digits, B/L.?Nails: ?NAILS are:?Elongated, overgrown, dystrophic, lytic, greater than 3mm thick, discolored and friable with crumbly malodorous subungual debris, with pain on palpation2-5 b/l?.? Assessment: * Assessment: 1.?Skin ulcer of toe of righ t foot, limited to breakdown of skin - L97.511, Response to treatment, Nonapplicable?2.?Skin ulcer of toe of left foot, limited to breakdown of skin - L97.521, Response to treatment,, Nonapplicable?3.?Type 2 diabetes mellitus with diabetic polyneuropathy - E11.42?4.?Tinea unguium - B35.1? Plan: * Treatment: 2.?Skin ulcer of toe of left foot, limited to breakdown of skin?Procedure: 90904- Debride <25 sq cm Notes: Patient Educated with: WOUND CARE INSTRUCTIONS.pdf (WOUND CARE INSTRUCTIONS.pdf)?? 3.?Type 2 diabetes mellitus with diabetic polyneuropathy?Procedure: 41069-KKQZ SKIN LESIONS, 2 TO 4 4.?Tinea unguium?Procedure: 52156-URGKEBL NAIL, 6 OR MORE * Procedures:?Debride Nail 6-10:?Nail debridement?Nail debridement performed extensively to reduce/remove overall nail length and girth, subungual debris, and necrotic tissue, by manual and electrical means with use of a nail nipper and/or dremel, to more viable healthy nail plate or bed tissue 6-10. Silver nitrate used for any petechial bleeding as necessary. Patient chooses, no pharmaceutical tx (46718).?Debride skin< 25 sq cm:?Open wound?Physician of record performed open wound selective debridement of first 25 sq cm or less, of devitilized necrotic/nonviable soft tissue, fibrin, and exudate extending from the epidermis through the dermis, utilizing sharp dissection with sterile 15 blade, and/or tissue nippers. Sterile antibiotic dressing applied, ANESTHESIA- was accomplished TOPICALLY with Lidocaine Hydrochloride Jelly 2 percent. Hemostasis was achieved through direct pressure. Post debridement measurements: __ mm x __ mm x __ mm. Character of the wound post debridement is stable (00800) , Open wound selective debridement of first 25 sq cm or less, of devitilized necrotic soft tissue, fibrin, and exudate extending from the epidermis through the dermis, utilizing sharp dissection with sterile #15 blade, and/or tissue nippers. Sterile antibiotic dressing applied, ANESTHESIA- was accomplished TOPICALLY with Lidocaine Hydrochloride Jelly 2%, , WOUIND CARE: The patient was instructed on importance of proper wound care consisting of pressure reduction, maintainance of clean moist wound environment, and regular debridement of devitilized tissue , The patient is to cleanse the wound with warm soapy water/peroxide/saline or betadine BID based on product availability , The patient is to apply Antibiotic Oint. to the wound and cover with a DSD , The patient was instructed to change dressings according to orders daily, or PRN saturation, leaks, The patient was instructed to monitor and report any signs or symptoms of infection or any untoward reactions (91903).?Keratoma Treatment:?Parring or Cutting of Benign Hyperkeratotic Lesion(s)?18766 (2-4 Lesions) - The Benign hyperkeratotic lesions, as described above were pared, and/or cut utilizing a sterile #15 blade, tissue nippers, and/or dremel.? * Procedure Codes:?42608 DEBRI DE NAIL, 6 OR MORE, Modifiers: XS 23262 ACTIVE WOUND CARE/20 CM OR <, Modifiers: XS 23546 TRIM SKIN LESIONS, 2 TO 4, Modifiers: XS * Preventive Medicine:? ??Counseling:?Ulcer:?A detailed plan of care was reviewed with the patient. We emphasized the fact that the patient takes on an active participating role in the treatment process and emphasized to them that they are an included, valued, and important member of the wound healing team in order to reach an expedient successful outcome. The patient agreed to follow their medically recommended diet while increasing their protein intake if safely able to do so, maintain proper bodily hydaration, abide by weight-bearing restrictions at all times, quit all current smoking habits if any, and diligently follow any/all dressing change instructions. It was clearly made known to the patient that if they fail to do their part, they will likely extend their course of treatment as well as possibly increase their risk of adverse events including amputation. The patient was instructed on importance of proper wound care consisting of pressure reduction, and proper maintainance of a moist wound environment. The patient is to cleanse the wound with warm soapy water/peroxide/saline, or betadine BID based on product availability. The patient is to apply ( Neosporin, Polysporin, or Triple, Every 9-12 weeks until healed, ) Antibiotic to the wound and cover with a DSD as directed. The patient was instructed to change dressings according to orders, or PRN saturation, leaks. The patient was instructed to monitor and report any signs or symptoms of infection or any untoward reactions. Precautions Taken: Offloading/Pressure reduction via rest/ limited activity to essential to daily life only, cane/ crutches/ walker/ knee scooter/ wheel chair, shoe modification, accommodative padding, sharp debridement, and take/apply medication as directed, Debridement frequency as indicated.? * Follow Up:?2 Months * Images: * Sign off status: Completed true * Provider:?Hollie Barksdale DPM Date:?2023 Generated for Khadijah fajardo/Cal/Tenisha on:?08/20/2024 12:48 PM EST History and Physical Notes * HPI (History of Present Illness) Category Sub-Category Detail Notes Category Not es At Risk footcare Pt States Last PCP Visit: Date: 3 Examination Category Sub-Category Detail Notes Category Not es Neurological SENSORY: Neurological exa m demonstrates, reduced sharp/dull pin prick discrimination , reduced vibration sensation, 5.07 monofilament test performed at plantar aspects of 5 varied sites per foot shows sensation, reduced , B/L Dermatologic SKIN FINDINGS: Skin exam reveal s Keratotic lesion(s) located at , Heel(s) , B/L ULCER: LOCATION, TA, SIZE, 4mm X 3mm X 2mm, BASE, granular, RIM, hyperkeratotic, UNDERMINING, absent, TRACKING, Full thickness breakdown of skin, DRAINAGE, serosanguineous, mild, NECROTIC TISSUE, loosely-adherent, yellow slough, MALODOR, absent, CALOR, absent, ERYTHEMA, absent, PAIN ON PALPATION, present , T5 LOCATION, SIZE, 8mm X 3mm X 2mm, BASE, granular, RIM, hyperkeratotic, UNDERMINING, absent, TRACKING, Full thickness breakdown of skin, DRAINAGE, serosanguineous, mild, NECROTIC TISSUE, loosely-adherent, yellow slough, MALODOR, absent, CALOR, absent, ERYTHEMA, absent, PAIN ON PALPATION, present Ophthalmology Referral DIABETES EYE EXAM Diabetic Retinopa thy Screening:: Yes Vascular DP PULSES (B): 3/4, B/L PT PULSES (B): 3/4, B/L CAPILLARY FILL TIME: immediate, all digi ts, B/L Nails NAILS are: Elongated, overg rown, dystrophic, lytic, greater than 3mm thick, discolored and friable with crumbly malodorous subungual debris, with pain on palpation2-5 b/l
--- OUTSIDE RECORDS SUMMARY | 2024-08-20 12:48 | XMS_ITS | Continuity of Care Document ---
Author Organization [facility] Address [address] [place] [address]- Care Team Providers Care Instructional Technology Coordinator Name Role Phone Wilbert SIMPSON, Jocelin Fleming Primary Care Physician ( [phone] Encounter [facility] Date(s): 06/29/24 - 07/29/24 [facility] [address] [place] [id number] Encounter Type: Triage Allergies, Adverse Reactions, Alerts Substance Criticality Severity Reaction Reaction Severity Status penicillin Active Other Food Allergy some dair y-itching itching crab Active Immunizations Given and Recorded Vaccine Date Status Refusal Reason SARS-CoV-2 (COVID-19) mRNA BNT-162b2 vac 11/20/20 Given SARS-CoV-2 (COVID-19) mRNA BNT-162b2 vac 10/30/20 Given tetanus/diphtheria/pertussis, acel(Tdap) 12/08/19 Given Medications alpha-lipoic acid 600 mg oral capsule 1 capsule = 600 mg, By Mouth, Daily, # 90 capsule, 2 Refills, Maintenance, 06/03/22 4:30:00 PM EDT,Capsule, [id number], Partial fill upon patient request if the prescription is for a schedule II opioid drug., 168, cm, 06/03/22 11:05:00 EDT, Height, 68.7, kg, 12/21/21 15:38:00 EDT, Dry Weight Start Date: 06/03/22 Status: Ordered Quantity: 90.0 Unit: capsule Repeat number: 3 aspirin 81 mg oral capsule 1 capsule = 81 mg, By Mouth, Every 24 hours, 0 Refills, Maintenance, 02/27/24 9:52:00 AM EDT, Partialfill upon patient request if the prescription is for a schedule II opioid drug. Start Date: 02/27/24 Status: Ordered Repeat number: 1 atorvastatin 10 mg oral tablet See Instructions, TAKE 1 TABLET BY MOUTH EVERY DAY, # 30 tablet, 0 Refills, Maintenance, 06/14/24 2:12:00 PM EDT, [facility] #[id number], Patient need to follow up with PCP and have them monitor for future refill., 173.7, cm, 05/28/24 12:21:00 EDT, Height, 73.1, kg, 10/11/23 6:51:00 EST, Dry Weight Start Date: 06/14/24 Status: Ordered Quantity: 30.0 Unit: tablet Repeat number: 1 buPROPion 150 mg/24 hours (XL) oral tablet, extended release TAKE 1 TABLET BY MOUTH TWICE A DAY Start Date: 04/06/23 Status: Ordered Repeat number: 1 busPIRone 7.5 mg oral tablet TAKE 1 TABLET BY MOUTH TWICE A DAY NEEDED Start Date: 04/05/23 Status: Ordered Repeat number: 1 calcium (as carbonate) 500 mg oral tablet, chewable 1 tablet = 500 mg, Chew, Daily, # 12 tablet, 0 Refills, Maintenance, 04/06/21 12:49:00 PM EDT, Chew Tablet, Partial fill upon patient request if the prescription is for a schedule II opioid drug. Start Date: 04/06/21 Status: Ordered Quantity: 12.0 Unit: tablet Repeat number: 1 celecoxib 200 mg oral capsule TAKE 1 CAPSULE BY MOUTH DAILY, MAY TAKE TWICE DAILY ON BAD DAYS NEEDED FOR PAIN Start Date: 07/31/18 Status: Ordered Repeat number: 1 compression stockings 20-30 mm-hg compression stockings 20-30 mm-hg, See Instructions, # 1 each, Refills 0, Tot. Refills 0, Maintenance, Use as directed, 02/27/24 9:50:00 AM EDT, Supply Start Date: 02/27/24 Status: Ordered Quantity: 1.0 Unit: each Repeat number: 1 Indication: Venous insufficiency (chronic) (peripheral) Forteo 600 mcg/2.4 mL subcutaneous device = 20 mcg, Subcutaneous Injection, Daily, rotate injection sites, # 2.4 mL, 11 Refills, Maintenance,09/29/23 5:59:00 AM EST, Solution, [id number], 170.3, cm, 08/25/23 9:45:00 EST, Height, 73.5,kg, 04/06/23 8:20:00 EDT, Dry Weight Start Date: 09/29/23 Status: Ordered Quantity: 2.4 Unit: mL Repeat number: 12 Indication: Age-related osteoporosis without current pathological fracture FREESTYLE LITE TEST STRIP FREESTYLE LITE TEST STRIP, TEST ONE TIME DAILY Start Date: 04/05/23 Status: Ordered Repeat number: 1 FREESTYLE LITE TEST STRIPS STRP FREESTYLE LITE TEST STRIPS STRP, 0 Refills, Maintenance, 04/05/23 11:58:00 PM EDT Start Date: 04/05/23 Status: Ordered Repeat number: 1 gabapentin 300 mg oral capsule TAKE 1 CAPSULE BY MOUTH 3 TIMES DAILY NEEDED FOR PAIN Start Date: 07/31/18 Status: Ordered Repeat number: 1 hydrOXYzine hydrochloride 50 mg oral tablet 1 tablet = 50 mg, By Mouth, Daily at bedtime, TAKE 1 TABLET BY MOUTH EVERY DAY Start Date: 07/31/18 Status: Ordered Repeat number: 1 ICaps AREDS 2 By Mouth, Daily, 0 Refills, Maintenance, 03/25/21 3:55:00 PM EDT, Partial fill upon patient request if the prescription is for a schedule II opioid drug. Start Date: 03/25/21 Status: Ordered Repeat number: 1 meclizine 12.5 mg oral tablet TAKE 1 TO 2 TABLETS BY MOUTH EVERY 8 HOURS NEEDED FOR NAUSEA/VERTIGO Start Date: 04/05/23 Status: Ordered Repeat number: 1 metFORMIN 500 mg oral tablet 1 tablet = 500 mg, By Mouth, 2 times a day, # 180 tablet, 0 Refills, Maintenance, 11/16/21 11:34:00 AM EDT, Tablet, Partial fill upon patient request if the prescription is for a schedule II opioid drug. Start Date: 11/16/21 Status: Ordered Quantity: 180.0 Unit: tablet Repeat number: 1 methocarbamol 500 mg oral tablet TAKE 1 TO 2 TABLETS BY MOUTH EVERY 8 HOURS NEEDED FOR SPASM*NOT TO BE USED WITH TIZANIDINE* Start Date: 04/06/23 Status: Ordered Repeat number: 1 montelukast 10 mg oral tablet TAKE 1 TABLET BY MOUTH EVERY DAY Start Date: 07/31/18 Status: Ordered Repeat number: 1 olmesartan 40 mg oral tablet 1 tablet = 40 mg, By Mouth, Daily, # 30 tablet, 0 Refills, Maintenance, 01/10/23 7:14:00 AM EDT, Tablet, Partial fill upon patient request if the prescription is for a schedule II opioid drug. Start Date: 01/10/23 Status: Ordered Quantity: 30.0 Unit: tablet Repeat number: 1 Omeprazole See Instructions, 20 mg By Mouth Daily in AM, 40 mg by mouth daily at bedtime, 0 Refills, Maintenance, 07/31/18 4:35:03 PM EST Start Date: 07/31/18 Status: Ordered Repeat number: 1 Pancreaze 10,500 units-61,500 units-35,500 units oral delayed release capsule 1 capsule, By Mouth, 3 times a day, # 90 capsule, 4 Refills, Maintenance, 05/11/21 11:34:00 AM EDT, CR Capsule, [id number], 1 capsule By Mouth 3 times a day,x30 days, 176, cm, 05/11/21 10:37:00 EDT, Height, 73.7, kg, 04/06/21 12:56:00 EDT, Dry Weight Start Date: 05/11/21 Stop Date: 10/08/21 Status: Ordered Quantity: 90.0 Unit: capsule Repeat number: 5 PEG-3350 with Electrolytes (Eqv-GoLYTELY) oral powder for reconstitution See Instructions, per GI office, # 4,000 mL, 0 Refills, Maintenance, 10/06/23 10:16:00 AM EST, [id number], Partial fill upon patient request if the prescription is for a schedule II opioid drug., per GI office, 170.3, cm, 08/25/23 9:45:00 EST, Height, 73.5, kg, 04/06/23 8:20:00 EDT, Dry Weight Start Date: 10/06/23 Status: Ordered Quantity: 4000.0 Unit: mL Repeat number: 1 Pen needles 32g 4mm Pen needles 32g 4mm, See Instructions, # 100 each, Refills 3, Tot. Refills 3, Maintenance, for use with daily forteo injections 90 day, 09/29/23 8:58:00 AM EST, Supply, 170.3, cm, 08/25/23 9:45:00 EST,Height, 73.5, kg, 04/06/23 8:20:00 EDT, Dry Weight Start Date: 09/29/23 Status: Ordered Quantity: 100.0 Unit: each Repeat number: 4 Pen [place], 31 G x 5 mm BD Ultra Fine III See Instructions, # 100 each, Refills 3, Tot. Refills 3, Maintenance, use daily with Tymlos pen, 09/29/23 6:01:00 AM EST, Compound, 170.3, cm, 08/25/23 9:45:00 EST, Height, 73.5, kg, 04/06/23 8:20:00 EDT, Dry Weight Start Date: 09/29/23 Status: Ordered Quantity: 100.0 Unit: each Repeat number: 4 Indication: Age-related osteoporosis without current pathological fracture tiZANidine 4 mg oral tablet TAKE 1 TABLET BY MOUTH EVERY 8 HOURS NEEDED*REPLACES CARISOPRODOL PER PRESCRIBER* Start Date: 04/05/23 Status: Ordered Repeat number: 1 traMADol 50 mg oral tablet TAKE 1 TABLET BY MOUTH TWICE A DAY NEEDED Start Date: 04/05/23 Status: Ordered Repeat number: 1 Trelegy Ellipta 100 mcg-62.5 mcg-25 mcg/inh inhalation powder 1 puffs, Inhalation, Daily, at the same time every day, # 60 each, 0 Refills, Maintenance, 07/25/24 4:09:00 PM EST, Powder, Partial fill upon patient request if the prescription is for a schedule II opioid drug. Start Date: 07/25/24 Status: Ordered Quantity: 60.0 Unit: each Repeat number: 1 Trelegy Ellipta 200 mcg-62.5 mcg-25 mcg/inh inhalation powder USE 1 PUFF ORALLY DAILY Start Date: 04/05/23 Status: Ordered Repeat number: 1 Vitamin D3 2000 intl units oral tablet TAKE 1 TABLET BY MOUTH EVERY DAY Start Date: 07/31/18 Status: Ordered Repeat number: 1 ZyrTEC 10 mg oral tablet, chewable 1 tablet = 10 mg, By Mouth, Daily, PRN for allergy symptoms, # 30 tablet, 0 Refills, Maintenance, 01/10/23 7:14:00 AM EDT, Chew Tablet, Partial fill upon patient request if the prescription is for a schedule II opioid drug. 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 Dry skin Confirmed Active MRSA infection, non-invasive Confirmed Active Onychomycosis of toenail Confirmed Active Osteoporosis, postmenopausal Confirmed Active Social History Social History Type Response Smoking Status Smoker, current stat us unknown entered on: 02/24/23 Sex Sex Representation Female (finding) Patient Care team information Care Team Personnel Name: Wilbert SIMPSON, Jocelin Fleming Position: [facility] Physician - Primary Care Member Role: PCP Address: [address] [place] [address] Telecom: Name: Anny Troy RN Position: [facility] RN Member Role: Primary Care Nurse Name: Everette Monteiro RN Position: [facility] RN Member Role: Primary Care Nurse Name: Sarah Fuller RN Position: [facility] ADALBERTO Nurse Member Role: Primary Care Nurse Care Team Related Persons Name: YOVANI MOISE Name: SELINA MOISE Name: PAULETTE MOISE Insurance Providers Guarantor name: ALTHEA MOISE [facility] Plan Information #: 1 Payer: [facility] FF NON P HMO Member Number: NA Policy Number: NA Group Number: NA
--- OUTSIDE RECORDS SUMMARY | 2024-08-20 12:49 | XMS_ITS | Patient Health Record ---
[facility] Address [address] [place] [address] Care Team Providers Care Fitness Specialist Name Role Phone Wilbert SIMPSON, Silverio Primary Care Provider Jennifer vailable Black, Hollie Unavailable [phone] Allergies Allergen (clinical drug ingredient) Drug/Non Drug Allergy documented on EMR Reaction Allergy Type Onset Date Status Shrimp Flavor Unknown Drug Allergy Act antonio Milk-related Compounds Unknown Drug Allergy Active Results Component Value Reference Range Notes HEMOGLOBIN A1C (GLYCOHEMOGLO BIN) Reviewed date:04/27/2024 11:05:08 AM Interpretation: Performing Lab: Notes/Report: HEMOGLOBIN A1C % (HH) 6.2 Reason For Referral No Information Medications Medication SIG (Take, Route, Frequency, Duration) Notes Start Date End Date Status Nystatin-Triamcinolone 761614-3.1 UNIT/GM APPLY DAILY TO SKIN TO AFFECTED AREA TWICE A DAY FOR 2 WEEKS for 30 Not-Takin g Ciclopirox Olamine 0.77 % APPLY TO AFFECTED AREA EXTERNALLY TO FEET TWICE A DAY 30 DAYS for 30 Not-Taking Gabapentin 300 MG 1 capsule before bed time Orally Once a day Not-Taking Doxycycline Not-Taki ng hydrOXYzine HCl 25 MG 1 tablet as needed Orally every 8 hrs Active Vitamin C Active Vitamin B12 Active Vitamin D Active metFORMIN HCl 500 MG 1 tablet with a brice l Orally Once a day Active Trulicity 0.75 MG/0.5ML as directed Subcutaneous Active Terbinafine HCl 250 MG 1 tablet Orally O nce a day for 7 days days then stop for 3 weeks repeat cycle for 90 days 06/22/2022 Not-Taking Pancreaze Active Immunizations Vaccine Route Administration Date Status Comme nts COVID-19 Pfizer BioNTech Vaccine Unknown 06/01/2021 Adm inistered Influenza Unknown 06/15/2023 Administered Social History Tobacco Use: Social History Observation Description Date Details (start date - stop date) Current Smoker NA - NA Tobacco Use/Smoking Question Answer Notes Are you a: current smoker How many cigarettes a day do you smoke? 07-11 Alcohol Screen Question Answer Notes Did you have a drink containing alcohol in the p ast year? No Points 0 Interpretation Negative Tobacco use other than smoking: Question Answer Notes Are you an other tobacco user? No Problems Problem Type SNOMED Code ICD Code Onset Dates Problem Status W/U Status Risk Notes Problem Localized, primary osteoarthritis of the ankle and/or foot (277171028) Primary osteoarthritis, left ankle and foot (M19.072) Active confirmed Problem Ulcer of toe (798926416) Non-pressure chronic ulcer of other part of right foot limited to breakdown of skin (L97.511) Active confirmed Problem Polyneuropathy due to type 2 diabetes mellitus (319012275) Type 2 diabetes mellitus with diabetic polyneuropathy (E11.42) Active confirmed Problem Ulcer of heel (675116769) Ulcer of right heel and midfoot, limited to breakdown of skin (L97.411) Active confirmed Problem Ulcer of toe of right foot (disorder) (881790475898888 01) Skin ulcer of toe of right foot, limited to breakdown of skin (L97.511) Active confirmed Nonapplicable Problem Ulcer of toe of left foot (disorder) (293855446063234 02) Skin ulcer of toe of left foot, limited to breakdown of skin (L97.521) Active confirmed Nonapplicable Vital Signs Height 5ft 9in in 04/27/2024 Weight 158 lbs 04/27/2024 BMI 23.33 kg/m2 04/27/2024 Procedures Procedure Date Ordered Date Performed Result Body Sit e 61825-Hnsovliu Plate 09/30/2023 N/A 24607-Epjtllrp Plate Each Additional 09/30/2023 N/A 36692-JXXOIZA NAIL, 6 OR MORE 10/21/2023 N/A 64011- Debride <25 sq cm 10/21/2023 N/A 65284-JJHG SKIN LESIONS, 2 TO 4 10/21/2023 N/A 91770-OOEXXKI NAIL, 6 OR MORE 04/27/2024 N/A 65470-EKVY SKIN LESIONS, 2 TO 4 04/27/2024 N/A Encounters Encounter Location Date Provider Diagnosis [address] [address] 09/30/2023 Hollie Black Ingrown nail L60.[address] [address] 10/21/2023 Hollie Black Skin ulcer of toe of left foot, limited to breakdown of skin L97.521 ; Skin ulcer of toe of right foot, limited to breakdown of skin L97.511 ; Type 2 diabetes mellitus with diabetic polyneuropathy E11.42 and Tinea unguium B35.[address] [address] 04/27/2024 Hollie Black Type 2 diabetes mellitus with diabetic polyneuropathy E11.42 and Tinea unguium B35.1 [facility] [address] [address] 09/26/2023 Hollie Black [address] [address] 10/21/2023 Hollie Black Assessments Encounter Date Diagnosis (ICD Code) Assessment Notes Treatment Notes Treatment Clinical Notes Section Notes 09/30/2023 Ingrown nail (ICD-10 - L60.0) 10/21/2023 Skin ulcer of toe of right foot, limited to breakdown of skin (ICD-10 - L97.511) Nonapplicable Patient Educated with: WOUND CARE INSTRUCTIONS. pdf (WOUND CARE INSTRUCTIONS. pdf) 10/21/2023 Skin ulcer of toe of left foot, limited to breakdown of skin (ICD-10 - L97.521) Nonapplicable Patient Educated with: WOUND CARE INSTRUCTIONS. pdf (WOUND CARE INSTRUCTIONS. pdf) 04/27/2024 Tinea unguium (ICD-10 - B35.1) 04/27/2024 Type 2 diabetes mellitus with diabetic polyneuropathy (ICD-10 - E11.42) 10/21/2023 Type 2 diabetes mellitus with diabetic polyneuropathy (ICD-10 - E11.42) 10/21/2023 Tinea unguium (ICD-10 - B35.1) 04/27/2024 Other Plan Of Treatment Pending Test Test Name Order Date *Liver Function Test (LFT) 08/05/2022 02194-PYWPFIP NAIL, 6 OR MORE 04/27/2024 75767-YWMRLYB NAIL, 6 OR MORE 10/21/2023 63677-PRTQSLP NAIL, 6 OR MORE 06/22/2022 54356-KMSMBCJ NAIL, 6 OR MORE 11/24/2021 92137-KQTWHBM NAIL, 6 OR MORE 02/09/2022 16397-GOBPTMK NAIL, 6 OR MORE 04/20/2022 95264-Ycxvizrv Plate 09/30/2023 83481-Hfdrenpg Plate Each Additional 04/2024 65535- Debride <25 sq cm 10/21/2023 86974- Debride <25 sq cm 04/20/2022 16590- Debride <25 sq cm 11/24/2021 48071-FEQD SKIN LESIONS, 2 TO 4 11/25/19 22 69266-MKMO SKIN LESIONS, 2 TO 4 02/10/20 22 50697-OVDC SKIN LESIONS, 2 TO 4 04/20/20 22 76793-GLDP SKIN LESIONS, 2 TO 4 06/22/20 22 25789-HFJQ SKIN LESIONS, 2 TO 4 10/21/19 24 36369-GFVM SKIN LESIONS, 2 TO 4 04/27/20 24 Next Appt Details Provider Name:Hollie Barksdale , 10/24/2024 11:00:00 AM, [address] [facility], [place], [address], Insurance Providers Payer Name Payer Address Payer Phone Subscriber Number Group Number Insured Name Patient Relationship to Insured Coverage Start Date Coverage End Date [facility] [address] [place] [address] [id number] Marina Sprague Self - patient is the insured Medical (General) History Medical History History ICD Code Arthritis Back,Hip,and Knee pain Broken bones Numbness Osteoporosis Poor circulation Sciatica chronic sinusitis Measles Chicken pox Transfusions Surgical History Surgery Date(Month/Year) deviated septum repair section gall bladder removal Lam's neuroma appendix hard corn Hospitalization History Reason Date(Month/Year) [facility], pneumonia 2023 [facility] bp issues 03/2023 [facility] low sodium, influenza 12/15/21
[2024-08-20 12:52] VITALS: BP 140/76; PULSE 78; O2SAT 98; BMI 23.6
== END 2024-08-20 13:12 | disposition home or self-care (01) ==
PROVIDERS: PCP Internal Medicine; Visit Provider Nurse Practitioner Family
DX: J44.9 Chronic obstructive pulmonary disease, unspecified (principal); R05.9 Cough, unspecified
CPT/HCPCS: 99214

== ENCOUNTER 2024-11-08 10:47 | Outpatient (AMB) | payer OTHER, SELFPAY ==
[2024-11-08 10:50] VITALS: BP 138/82; PULSE 96; O2SAT 99; BMI 22.3
--- NOTE | 2024-11-08 10:50 | MHC.OFFVIS ---
Vital Signs 11/08/24 10:50 Height 5 ft 9 in Weight 151 lb 0.266 oz BMI 22.3 BP 138/82 Blood Pressure Location Rt brachial Position Sitting Pulse 96 Pulse Source Doppler Pulse Oximetry (%) 99 Oxygen Delivery Method Room Air Intake Visit Reasons: Dyspnea Allergies penicillin V Allergy (Unknown, Verified 11/08/24 10:55) Unknown HPI HPI Dyspnea: Details: 74-year-old lady, active approximately 30 pack-year smoker, with underlying history of multiple environmental allergies, previously on allergy shots, with prior history of remote septoplasty after nasal fractures, followed for chronic cough and mild asthma-COPD overlap syndrome.? She continues on Trelegy and albuterol MDI with reasonable control of his symptoms. She did not derive significant symptomatic benefit from theophylline and has stopped it. She denies recent acute exacerbations. [facility] Medical History Asthma-COPD overlap syndrome Back pain Chronic cough Osteoporosis Pulmonary nodules Thoracic compression fracture Social History Household Members: None Patient Tobacco Use Status: Current everyday Tobacco user Tobacco use type: Cigarette Cigarette Packs Per Day: 0.5 Years Smoked: 25-30yrs Second Hand Smoke Exposure: No Review of Systems Const Denies daytime sleepiness, Denies excessive sweating, Denies fatigue, Denies fever(s), Denies lethargy, Denies malaise, Denies night sweats, Denies snoring and Denies weight loss Eyes Denies blurry vision and Denies itchy eyes ENT Denies nasal congestion, Denies post nasal drip, Denies sinus pain, Denies sinus pressure and Denies other ( Thrush) Card Denies chest pain, Denies pedal edema, Denies dyspnea, Denies orthopnea and Denies paroxysmal nocturnal dyspnea Resp Denies cough, Denies hemoptysis, Denies excessive phlegm production, Denies dyspnea, Denies snoring and Denies wheezing GI Denies abdominal pain and Denies heartburn Neuro Denies seizure-like activity Endo Denies excessive sweating, Denies fatigue and Denies heat intolerance Juan Carlos/Lymph Denies easy bruising Aller/Immun Denies itchy eyes, Denies seasonal rhinorrhea and Denies wheezing Physical Exam Vital Signs: Last Vital Signs Pulse 96 11/08/24 10:50 BP 138/82 11/08/24 10:50 Pulse Ox 99 11/08/24 10:50 Oxygen Delivery Method Room Air 11/08/24 10:50 BMI result Body Mass Index 22.3 Const General: no acute distress and alert Nutritional Appearance: not obese Orientation/consciousness: Other orientation findings ( oriented) HEENT Head: Yes atraumatic Eyes General: appearance normal, both eyes and all related structures Sclerae: sclerae normal EOM: EOMs intact bilaterally Neck Neck: Yes supple Lymphatic: no lymphadenopathy noted Resp Effort & Inspection: normal respiratory effort and no use of accessory muscles Auscultation: clear to auscultation bilaterally Cardio Rate: regular rate Rhythm: regular rhythm Heart sounds: no gallops, no murmurs and no rubs Skin General skin exam: other ( warm) Extrem General: No clubbing, No cyanosis and No edema Assessment & Plan Assessment & Plan (1) Asthma-COPD overlap syndrome: Code(s): J44.9 - Chronic obstructive pulmonary disease, unspecified Category: Medical Plan: Now well controlled on Trelegy and albuterol MDI. Continue current regimen. (2) Pulmonary nodules: Code(s): R91.8 - Other nonspecific abnormal finding of lung field Category: Medical Plan: Results of lung cancer screening CT chest from June of 2024 reviewed, no worrisome nodules, continue with yearly screening, next in April of 2025, ordered. Orders: Orders CT lung screening 07/11/25 Z87.891 - Personal history of nicotine dependence Coding Level of Care Code Est Pt Level 4 (56383) Diagnoses Asthma-COPD overlap syndrome J44.9 Pulmonary nodules R91.8
--- OUTSIDE RECORDS SUMMARY | 2024-11-08 12:37 | XMS_ITS | Clinical Summary ---
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 Active vit A/vit C/vit E/zinc/copper (ICAPS AREDS ORAL) Take 1 Tablet by mouth 2 times daily. Active atorvastatin (LIPITOR) 10 mg tablet Take 1 Tablet by mouth daily. Active calcium carbonate-vitam in D3 600 mg-5 mcg (200 unit) per tablet 1 TABLET DAILY Active celecoxib (CeleBREX) 200 mg capsule TAKE 1 CAPSULE BY MOUTH DAILY, MAY TAKE TWICE DAILY ON BAD DAYS NEEDED FOR PAIN 07/26/2023 Active cholecalciferol (VITAMIN D-3) 50 mcg (2,000 unit) tablet Take 1 Tab by mouth daily. 01/30/2018 Active cyanocobalamin (VITAMIN B-12) 250 mcg tablet Take 1 Tablet by mouth daily. Active fluticasone-ume clidinium-vilan terol (Trelegy Ellipta) 100-62.5-25 mcg inhaler Inhale 1 Puff into the lungs daily. Active furosemide (LASIX) 20 mg tablet Take 0.5 Tablets by mouth daily. Active gabapentin (NEURONTIN) 300 mg capsule Take 1 Capsule by mouth. 1-2 times daily Active hydrOXYzine HCL (ATARAX) 25 mg tablet Take 25 mg by mouth 3 times daily as needed. Active pancrelipase (Pancreaze) 10,500-35,500- 61,500 unit capsule TAKE 1 CAPSULE BY MOUTH THREE TIMES A DAY 05/05/2023 Active metFORMIN (GLUCOPHAGE) 500 mg tablet 1 tablet in the am, 2 tablets at night Active montelukast (SINGULAIR) 10 mg tablet Take 1 Tablet by mouth at bedtime. Active olmesartan (BENICAR) 40 mg tablet Take 1 Tablet by mouth daily. Active omeprazole (PriLOSEC) [address] capsule Take 1 Capsule by mouth at bedtime. Active omeprazole (PriLOSEC) [address] capsule 1 Capsule daily. 11/25/2017 Active Active Problems Problem Noted Date Diagnosed Date Bradycardia 05/12/2023 Overview (07/24/2024): Last Assessment & Plan: Patient with monitoring that showed PVCs but no sustained arrhythmias. Patient was sent for stress echocardiography that showed no evidence of cardiomyopathy or ischemia or significant valvular heart disease. Patient is no longer complaining about slow pulses at this point no further cardiac intervention is required. The patient has been told to contact us if she develops any change in her symptom pattern. Tachycardia 05/12/2023 Age-related osteoporosis wit hout current pathological fracture 12/05/2017 Overview (07/24/2024): Slightly worse comparing 2017 scan to 2020 scan Only on Vit D and Ca Referral to endocrine placed Immunizations Name Administration Dates Next Due Influenza trivalent, 0.5mL, preservative free (Fluarix; FluLaval; Fluzone) ages 6mo and older (Afluria) 3 years and older 05/07/2016 Surgical History Surgery Date Site/Laterality Comments OTHER SURGICAL HISTORY 11/02/06 PROCEDURE: HISTORICAL VULVA SURGERY; COMMENT: 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 OTHER SURGICAL HISTORY 06/28 PROCEDURE: ANKLE BRACE; COMMENT: left ankle broken SECTION PROCEDURE: CT DELIVERY ONLY; COMMENT: x2 TUBAL LIGATION PROCEDURE: HISTORICAL TUBAL LIGATION TONSILLECTOMY age 20 PROCEDURE: HISTORICAL TONSILLECTOMY APPENDECTOMY age 8 PROCEDURE: CT APPENDECTOMY Medical History Medical History Date Comments Osteopenia DX:Osteopenia Family History Medical History Relation Name Comments No Known Problems Brother No Known Problems Daughter Mandy Hyperlipidemia Father No Known Problems Maternal Grandfather Glaucoma Maternal Grandmother Heart failure Maternal Grandmother Diabetes Mother Thyroid disease Mother No Known Problems Other No Known Problems Paternal Grandfather No Known Problems Paternal Grandmother No Known Problems Son Kana Breast cancer Neg Hx Relation Name Status Comments Brother Alive x1 Daughter Mandy Alive Father Alive Maternal Grandfather Maternal Grandmother Mother (Age 70) Other Paternal Grandfather Paternal Grandmother Son Kana Alive Social History Tobacco Use Types Packs/Day Years Used Date Smoking Tobacco: Every Day Cigarettes 0.5 14.5 Started: 05/07/2010 Smokeless Tobacco: Never Alcohol Use Standard Drinks/Week Comments No 0 (1 standard drink = 0.6 oz pur e alcohol) Comments Unknown Sex and Gender Information Value Date Recorded Sex Assigned at Not on file Legal Sex Female 10:15 PM EST Gender Identity Not on file Sexual Orientation Not on file Obstetrics History Last Filed Vital Signs Vital Sign Reading Time Taken Comments Blood Pressure 138/72 08/09/2023 11:23 AM EST Pulse 83 08/09/2023 11:23 AM EST Temperature - - Respiratory Rate - - Oxygen Saturation - - Inhaled Oxygen Concentration - - Weight 74.4 kg (164 lb) 08/09/2023 11:23 AM EST Height 175.3 cm (5' 9 ) 08/09/2023 11:23 AM EST Body Mass Index 24.22 08/09/2023 11:23 AM EST Plan of Treatment Upcoming Encounters Date Type Department Care Team (Late st Contact Info) Description 12/26/2024 3:15 PM EDT Office Visit Obstetrics and Gynecology - [facility] [place] [address] Vick Hurtado CNM [address] [place] [address] 02/25/2025 8:30 AM EDT Appointment Radiology Department - [place] [address] [place] [address] Health Maintenance Due Date Last Done Comments DTaP,Tdap,and Td Vaccines (1 - Tdap) 1971 Pneumococcal Vaccine: 50+ Years (1 of 2 - PCV) 1971 Zoster Vaccines (1 of 2) 2002 Colorectal Cancer Screening: Colonoscopy 07/31/2022 Depression Screening 07/31/2022 Falls Risk Assessment 07/31/2022 Hepatitis C Screening 07/31/2022 Social Influencers of Health Screening 07/31/2022 COVID-19 Vaccine ( - season) 2024 Influenza Vaccine (#1) 2024 05/07/2016 Breast Cancer Screening 02/19/2026 02/20/20 24, 02/01/2023, 01/27/2022, Additional history exists RSV Immunization Patients 60+ Years Old (1 - 1-dose 75+ series) 2027 Osteoporosis Screening (Bone Density Screening) 11/17/2030 11/17/2020, 12/02/2017 HIB Vaccines Aged Out No longer eligi ble based on patient's age to complete this topic HPV Vaccines Aged Out No longer eligi ble based on patient's age to complete this topic Hepatitis A Vaccines Aged Out No long er eligible based on patient's age to complete this topic Hepatitis B Vaccines Aged Out No long er eligible based on patient's age to complete this topic IPV Vaccines Aged Out No longer eligi ble based on patient's age to complete this topic MMR Vaccines Aged Out No longer eligi ble based on patient's age to complete this topic Meningococcal ACWY Vaccine Aged Out N o longer eligible based on patient's age to complete this topic Meningococcal B Vacine Aged Out No lo nger eligible based on patient's age to complete this topic RSV Immunization Patients Under 20 months Aged Out No longer eligible based on patient's age to complete this topic Varicella Vaccines Aged Out No longer eligible based on patient's age to complete this topic Procedures Procedure Name Priority Date/Time Associated Diagnosis Comments SCREENING MAMMOGRAPHY BI 2-VIEW BREAST INC CAD Routine 02/20/2024 8:52 AM EDT Encounter for screening mammogram for malignant neoplasm of breast DXA BONE DENSITY STUDY 1+ SITS AXIAL SKEL Routine 11/17/2020 4:07 PM EDT Encounter for gynecological examination (general) (routine) without abnormal findings from Last 3 Months or Most Recently Relevant to Health Maintenance Results * SCREENING MAMMOGRAPHY BI 2-VIEW BREAST INC CAD (02/20/2024 8:52 AM EDT) Anatomical Region Laterality Modality Radiographic Esther ging 02/01/2023 1:45 PM EDT Narrative 02/20/2024 3:16 PM EDT This is a summary report. The complete report is available in the patient's medical record. If you cannot access the medical record, please contact the sending organization for a detailed fax or copy. Full field digital screening tomosynthesis mammography, reviewed with CAD and compared to previous mammograms dating back to 01/21/2021 with most recent of 02/01/2023. The breast tissue is heterogeneously dense, limiting sensitivity. No suspicious mass, architectural distortion or suspicious calcifications are identified. IMPRESSION: : Dense breast tissue, limiting the sensitivity of mammography. No mammographic evidence of malignancy. BIRADS 1-Negative; N. 5 year breast cancer risk assessment N/A Lifetime breast cancer risk assessment N/A Breast cancer risk category Breast cancer risk not assessed Procedure Note Jacque Watts MD - 07/16/2024 This is a summary report. The complete report is available in thepatient's medical record. If you cannot access the medical record, pleasecontact the sending organization for a detailed fax or copy. Full field digital screening tomosynthesis mammography, reviewed with CADand compared to previous mammograms dating back to 01/21/2021 with mostrecent of 02/01/2023. The breast tissue is heterogeneously dense, limitingsensitivity. No suspicious mass, architectural distortion or suspiciouscalcifications are identified. IMPRESSION: : Dense breast tissue, limiting the sensitivity of mammography. Nomammographic evidence of malignancy. BIRADS 1-Negative; N. 5 year breast cancer risk assessment N/A Lifetime breast cancer risk assessment N/A Breast cancer risk category Breast cancer risk not assessed Akanksha Man DO IMG XR PROCEDURES Final Resul t * DXA BONE DENSITY STUDY 1+ ENA STISNON SKEL (11/17/2020 4:07 PM EDT) Anatomical Region Laterality Modality Bone Densitometr y 09/30/2020 11:1 5 AM EST Narrative 11/17/2020 6:25 PM EDT BONE DENSITY SCAN (DEXA): FINDINGS: Lumbar Spine T-score is -1.1. ?? (SD relative to 20-29 y/o adult) Z-score is 0.9. ??(SD relative to age matched peers) This is considered osteopenia by WHO criteria. Left Hip T-score is -2.8. Z-score is -1.1. This is considered osteoporosis by WHO criteria. Comparison exam(s): 12/02/2017. ??11.2% loss of lumbar spine bone mineral density and 6.7% loss of left hip bone mineral density, both statistically significant at the 95% confidence level. Lateral survey view of the thoracolumbar spine shows no significant change in the mild anterior wedge compression deformity of T12. IMPRESSION: IMPRESSION: ?? Osteoporosis by WHO criteria. The [facility] Department of Internal Medicine recommends using National Osteoporosis Foundation (NOF) guidelines in treatment decisions related to osteoporosis. NOF guidelines suggest considering treatment for postmenopausal women and men aged 50 or older presenting with the following: History of hip or vertebral fracture. T-score = -2.5 (DXA) at the femoral neck, total hip, or spine, after appropriate evaluation to exclude secondary causes. Low bone mass (T-score between -1.0 and -2.5 at the femoral neck or spine) AND a 10-year probability of a hip fracture = 3% OR a 10-year probability of a major osteoporosis-related fracture = 20% based on the [place]-adapted WHO algorithm Please note that all treatment decisions require clinical judgment and consideration of individual patient factors, including patient preferences, co-morbidities, previous drug use, risk factors not captured in the FRAX model (e.g., frailty, falls, vitamin D deficiency, increased bone turnover, interval significant decline in bone density) and possible under- or over-estimation of fracture risk by FRAX. Optional alternative screening schedule based on marko Mathews., [employer] September 09, 2011 for patients with osteopenia (based on hip BMD T-score) is as follows: * ??advanced osteopenia (T scores -2.00 to -2.49), BMD testing every year * ??moderate osteopenia (T scores -1.50 to -1.99), BMD testing every 5 years mild osteopenia or normal BMD (T scores -1.50 and higher), BMD testing every 15 years Procedure Note Anabell Brice MD - 08/10/2022 BONE DENSITY SCAN (DEXA): FINDINGS: Lumbar Spine T-score is -1.1. (SD relative to 20-29 y/o adult) Z-score is 0.9. (SD relative to age matched peers) This is considered osteopenia by WHO criteria. Left Hip T-score is -2.8. Z-score is -1.1. This is considered osteoporosis by WHO criteria. Comparison exam(s): 12/02/2017. 11.2% loss of lumbar spine bone mineraldensity and 6.7% loss of left hip bone mineral density, both statistically significant at the95% confidence level. Lateral survey view of the thoracolumbar spine shows no significant changein the mild anterior wedge compression deformity of T12. IMPRESSION: IMPRESSION: Osteoporosis by WHO criteria. The [facility] Department of Internal Medicine recommendsusing National Osteoporosis Foundation (NOF) guidelines in treatment decisions related toosteoporosis. NOF guidelines suggest considering treatment for postmenopausal women and menaged 50 or older presenting with the following: History of hip or vertebral fracture. T-score = -2.5 (DXA) at the femoral neck, total hip, or spine, afterappropriate evaluation to exclude secondary causes. Low bone mass (T-score between -1.0 and -2.5 at the femoral neck or spine)AND a 10-year probability of a hip fracture = 3% OR a 10-year probability of a majorosteoporosis-related fracture = 20% based on the [place]-adapted WHO algorithm Please note that all treatment decisions require clinical judgment andconsideration of individual patient factors, including patient preferences, co- morbidities,previous drug use, risk factors not captured in the FRAX model (e.g., frailty, falls, vitaminD deficiency, increased bone turnover, interval significant decline in bone density) andpossible under- or over-estimation of fracture risk by FRAX. Optional alternative screening schedule based on evette Mathews al., NEJMJanuary 2011 for patients with osteopenia (based on hip BMD T-score) is as follows: * advanced osteopenia (T scores -2.00 to -2.49), BMD testing every year * moderate osteopenia (T scores -1.50 to -1.99), BMD testing every 5years mild osteopenia or normal BMD (T scores -1.50 and higher), BMD testingevery 15 years Akanksha Man DO IMG DXA PROCEDURES Final Resu lt from Last 3 Months or Most Recently Relevant to Health Maintenance Insurance MEDICARE Care Teams Punch Finisher Relationship Specialty Start Date End Date Silverio Atkins MD [address] [facility] [place], [place] PCP - General Internal Medicine 01/02/18
--- OUTSIDE RECORDS SUMMARY | 2024-11-08 12:37 | XMS_ITS ---
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 Name Role Phone Wilbert SIMPSON, Silverio Primary Care Provider Jennifer vailable Hollie Barksdale Unavailable [phone] REASON FOR VISIT buy formula 7 Encounters Encounter Location Date [facility] [place] [address] [facility]/21/2023 Hollie Barksdale Plan Of Treatment Next Appt Details Provider Name:Hollie Barksdale , 01/23/2025 11:45:00 AM, [address] [facility], [place], [address], Progress Notes * Marina SPRAGUE TDOB:[birth year] (73 yo F)Acc No.[id number]:10/21/2023 Patient:?Marina Sprague :1950???Age:73 Y???Sex:Female Address:[address] [place] [address] * true * Date:? Generated for Printi ng/Faxing/eTransmitting on:?11/08/2024 12:37 PM EDT
--- OUTSIDE RECORDS SUMMARY | 2024-11-08 12:37 | XMS_ITS ---
Author Organization [facility] Address [address] [place] [address] Care Team Providers Care Software Quality Manager Name Role Phone Wilbert SIMPSON, Silverio Primary Care Provider Jennifer vailable Black, Hollie Unavailable [phone] Allergies Allergen (clinical drug ingredient) Drug/Non Drug Allergy documented on EMR Reaction Allergy Type Onset Date Status Shrimp Flavor Unknown Drug Allergy Act antonio Milk-related Compounds Unknown Drug Allergy Active REASON FOR VISIT At Risk Footcare, Toe Irritation, Skin problem(s) Medications Medication SIG (Take, Route, Frequency, Duration) Notes Start Date End Date Status Extra Depth Orthopedic Shoes (1 Pair) with Customized Heat Molded Multidensity Innersoles (3 Pair) as directed Dx: NIDDM/Polyneuropathy (E11.42), Hammertoe Foot Deformity (M20.41,M20.42), Preulcerative Skin Lesion(s) (L85.1 10/24/2024 Active Doxycycline Not-Taki ng Terbinafine HCl 250 MG 1 tablet Orally O nce a day for 7 days days then stop for 3 weeks repeat cycle for 90 days 06/22/2022 Not-Taking oxyCODONE HCl 5 MG TAKE 1 TO 2 TABLETS BY MOUTH EVERY 6 HOURS NEEDED FOR PAIN *PER INS MAX 6 TABS/DAILY* Oral for 7 Days Active Meclizine HCl 12.5 MG Oral for 5 Days Active Vitamin D Active Gabapentin 300 MG 1 capsule before bed time Orally Once a day Active Omeprazole 40 MG TAKE [address] [facility] EVERY DAY Oral for 90 Days Active Nystatin-Triamcinolone 488482-5.1 UNIT/GM APPLY DAILY TO SKIN TO AFFECTED AREA TWICE A DAY FOR 2 WEEKS for 30 Not-Takin g Ciclopirox Olamine 0.77 % APPLY TO AFFECTED AREA EXTERNALLY TO FEET TWICE A DAY 30 DAYS for 30 Not-Taking Vitamin C Active Vitamin B12 Active Pancreaze Active metFORMIN HCl 500 MG 1 tablet with a brice l Orally Once a day Active hydrOXYzine HCl 25 MG 1 tablet as needed Orally every 8 hrs Active Celecoxib Active Ammonium Lactate 12 % 1 application Exte rnally to affected areas of dry skin to feet except for between the toes Twice a day for 30 days Active Trulicity 0.75 MG/0.5ML as directed Subcutaneous Active Olmesartan Medoxomil Active Atorvastatin Calcium Active Methocarbamol 500 MG Oral for 20 Days Active Teriparatide 600 MCG/2.4ML Subcutaneous for 28 Days Act antonio Social History Tobacco Use: Social History Observation Description Date Details (start date - stop date) Never Smoker NA - NA Tobacco use other than smoking: Question Answer Notes Are you an other tobacco user? No Tobacco Control (Standard) Question Answer Notes Tobacco use: Nonsmoker Additional Findings: Tobacco non-user Current no nsmoker AUDIT-C (Standard) Question Answer Notes Did you have a drink containing alcohol in the p ast year? No Points 0 Interpretation Negative Problems Problem Type SNOMED Code ICD Code Onset Dates Problem Status W/U Status Risk Notes Problem Acquired hammer toe of right foot (5982182408619 105) Other hammer toe(s) (acquired), right foot (M20.41) Active confirmed Problem Acquired hammer toe of left foot (2085762000939 103) Other hammer toe(s) (acquired), left foot (M20.42) Active confirmed Vital Signs Height 5ft 8.5in in 10/24/2024 Weight 155 lbs 10/24/2024 BMI 23.22 kg/m2 10/24/2024 Blood pressure systolic 130 mm Hg 10/25/19 25 Blood pressure diastolic 82 mm Hg 025 Procedures Procedure Date Ordered Date Performed Result Body Sit e 04971-ZVHHUGO NAIL, 6 OR MORE 10/24/2024 N/A 02296-MMNX SKIN LESIONS, 2 TO 4 10/24/2024 N/A Encounters Encounter Location Date Provider Diagnosis [facility] [address] [place] [address] 10/24/2024 Hollie Shamir Type 2 diabetes van itus with diabetic polyneuropathy E11.42 ; Tinea unguium B35.1 ; Other hammer toe(s) (acquired), right foot M20.41 ; Other hammer toe(s) (acquired), left foot M20.42 and Xerosis of skin L85.3 Assessments Encounter Date Diagnosis (ICD Code) Assessment Notes Treatment Notes Treatment Clinical Notes Section Notes 10/24/2024 Type 2 diabetes mellitus with diabetic polyneuropathy (ICD-10 - E11.42) 10/24/2024 Tinea unguium (ICD-10 - B35.1) 10/24/2024 Other hammer toe(s) (acquired), right foot (ICD-10 - M20.41) Patient Educated with: DIABETIC FOOT CARE INSTRUCTIONS. pdf (DIABETIC FOOT CARE INSTRUCTIONS. pdf) 10/24/2024 Other hammer toe(s) (acquired), left foot (ICD-10 - M20.42) 10/24/2024 Xerosis of skin (ICD-10 - L85.3) Plan Of Treatment Medication Medication Name Sig Start Date Stop Date Notes Extra Depth Orthopedic Shoes (1 Pair) with Customized Heat Molded Multidensity Innersoles (3 Pair) as directed Dx: NIDDM/Polyneuropathy (E11.42), Hammertoe Foot Deformity (M20.41,M20.42), Preulcerative Skin Lesion(s) (L85.1 10/24/2024 Ammonium Lactate 12 % 1 application Exte rnally to affected areas of dry skin to feet except for between the toes Twice a day for 30 days Treatment Notes Assessment Notes Other hammer toe(s) (acquired), right fo ot Patient Educated with: DIABETIC FOOT CARE INSTRUCTIONS.pdf (DIABETIC FOOT CARE INSTRUCTIONS.pdf) Pending Test Test Name Order Date 63685-VNTNKEX NAIL, 6 OR MORE 10/24/2024 14101-BCGZ SKIN LESIONS, 2 TO 4 10/25/19 25 Next Appt Details Follow Up: 6 Months, Reason: Provider Name:Hollie A Shamir , 01/23/2025 11:45:00 AM, [address], [place], [address], Procedure Notes * Category Sub-Category Detail Notes Debride Nail 6-10 Nail debridement Due to the cl inical pathology outlined in the exam findings, performance of this nail treatment is medically necessary as its management by an unskilled/untrained nonprofessional would put this patients foot and overall health at risk. Therefore, debridement to affected nail(s), as described in exam ( TA, T1, T2, T3, T4, T5, T6, T7, T8, T9, ___ ), was performed exclusively by the physician of record to reduce/remove overall nail length, girth, thickness, subungual debris, and necrotic tissue, by manual and/or electrical means through the use of a nail nipper and/or dremel-type drier and grinder tender, to a more viable healthy nail plate or bed tissue 6-10 nails in total. Silver nitrate was used for any petechial bleeding as necessary. Definitive antifungal treatment options, both pharmaceutical and surgical, have been reviewed and discussed with the patient. The patient solely prefers the use of intermittent/as needed professional debridement services for their nail condition and understands the need for additional periodic treatments to maintain effectiveness in symptomatic relief - 51012 Keratoma Treatment Parring or Cutting o f Benign Hyperkeratotic Lesion(s) (-56) 2-4 Lesions - Due to the at risk nature of the patients medical condition as documented in the exam findings, performance of this keratoderma treatment is medically necessary as its management by an unskilled/untrained nonprofessional would put this patients foot and overall health at risk. Therefore, the benign hyperkeratotic lesions, ( 2 ) in total, locations as stated and described in the exam ( Plantar Heel(s)B/L, ___ ), were pared, and/or cut utilizing a sterile 15 blade, tissue nippers, and/or power dremel instrumentation by the physician of record - 57133 Progress Notes * Marina SPRAGUE TDOB:[birth year] (74 yo F)Acc No.[id number]:10/24/2024 Progress Note Patient:?Marina SPRAGUE Provider:?Hollie Barksdale DPM :1950???Age:74 Y???Sex:Female D ate:10/24/2024 Address:[address], [place], [id number] Pcp:Silverio Atkins MD Subjective: * Chief Complaints: * ???At Risk FootcareToe Irrit ationSkin problem(s) * HPI: ???At Risk footcare:?Pt States Last PCP Visit:?Date?06/22/2024 ???Toe pain:?Location:?B/L feet.?Duration:?several years.?Course:?worse.?Aggravated by:?shoes, any pressure.?Treatments:?change in shoes.?Skin problems:?Nature:?dryness , scaling.?Location:?B/L .?Duration:?several days.?Course:?worse.? * ROS:?General/Constitutional:?Nausea?denies, denies.?Vomiting?denies, denies.?Hunger Thirst?denies, denies.?Loss appetite?denies, denies.?Chills?denies, denies.?Fatigue?admits, denies.?Fever?denies, denies.?Night Sweats denies, denies.?Unexplained weight loss?denies, denies.?Unexplained weight gain?admits.?Ophthalmologic:?Blurred vision?denies.?Red eye?denies.?HEENTM:?Dentures?denies, denies.?Dizziness?denies, denies.?Glasses/contacts?denies, denies.?Retinopathy?denies, denies.?Blurred/double vision?denies, denies.?TMJ?denies, denies.?Discharge/drainage?denies, denies.?Implants?denies, denies.?Sore throat?denies.?Dental implants?denies.?Hard of hearing ?denies, denies.?Difficulty chewing/swallowing/speaking?denies, denies.?Nose bleeds?denies, denies.?Sore mouth?denies, denies.?Swollen glands?denies.?Respiratory:?On Oxygen?denies, denies.?Pneumonia/pleurisy?denies, denies.?Bronchitis?denies, denies.?Emphysema?denies, denies.?Coughing?denies, denies.?Cough blood?denies, denies.?Shortness of breath?denies, denies.?Wheezing?denies, denies.?Cardiovascular:?Pacemaker?denies, denies.?MVP?denies, denies.?WPW?denies, denies.?CHF?denies, denies.?Heart attack?denies, denies.?Septal defect?denies, denies.?Rapid beat?denies, denies.?Chest pain ?denies, denies.?Atrial Fib.?denies, denies.?Murmur/Palpitations?denies, denies.?Gastrointestinal:?Hemorrhoids?denies, denies.?Stomach/Abdominal pain?denies, denies.?Dark blood stool?denies, denies.?Irritable bowel ?denies, denies.?Constipation?denies, denies.?Diarrhea?denies, denies.?Vomiting?denies.?Hematology:?Swelling?denies, denies.?Clots?denies.?Varicose Veins?denies.?Bruising?denies, denies.?Bleeding problem?denies, denies.?Genitourinary:?Blood urine?denies, denies.?Frequent/Painfu/urination/bladder control?denies, denies.?Kidney stones?denies, denies.?Infection (UTI)?denies, denies.?Nephropathy?denies, denies.?sex trans dis (STD)?denies.?Prostate?denies.?Musculoskeletal:?Hammertoes?denies, denies.?Bunions?denies, denies.?Scoliosis/kyphosis?denies.?Back Pain?admits.?Muscle Cramps/ Resting?denies.?Muscle cramps / walking?denies, denies.?Generalized aches and pains?admits.?Weakness?denies, denies.?Integ.:?Hopkins?denies, denies.?Scars?denies, denies.?Corns/calluses?denies, denies.?Ingrown nails?admits.?Painful nails?denies, denies.?Open Sores?denies.?Rashes?denies, denies.?Neurologic:?Difficulty sleeping?denies, denies.?Bipolar?denies.?Brain disorder?denies, denies.?Numbness?denies.?Balance trouble?admits, denies.?Confusion?denies, denies.?Fainting/blackouts?denies, denies.?Headache?denies.?Tingling?admits.?Tremors?denies, denies.? * Medical History:? * Surgical History:?deviated s eptum repair section gall bladder removal Lam's neuroma appendix hard corn * Hospitalization/Major Diagno stic Procedure:?[facility] low sodium, influenza 12/15/21[facility]le bp issues , pneumonia 2023Fractured hip 09/15 * Family History:?Mother: dece ased, foot problems, poor circulation, diagnosed with Family history of arthritis, Diabetic - NIDDM.?Father: alive.? * Social History:?Tobacco Use:?Tobacco use other than smoking?Are you an other tobacco user??No ?Tobacco Control (Standard)?Tobacco use:?Nonsmoker ?Additional Findings: Tobacco non-user?Current nonsmoker ???Drugs/Alcohol:?Drugs?Have you used drugs other than those for medical reasons in the past 12 months??No ???Miscellaneous:?Caffeine: yes, frequency: 6 cups a day. ?Children: yes, 2. ?Exercise: yes, walking, golf. ?Marital status: . 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 ???Drug/Alcohol:?AUDIT-C (Standard)?Did you have a drink containing alcohol in the past year??No ?Points?0 ?Interpretation?Negative * Medications:?TakingCelecoxib Olmesartan Medoxomil Atorvastatin Calcium Trulicity 0.75 MG/0.5ML Solution Pen-injector as directed Subcutaneous Pancreaze metFORMIN HCl 500 MG Tablet 1 tablet with a meal Orally Once a day hydrOXYzine HCl 25 MG Tablet 1 tablet as needed Orally every 8 hrs Vitamin C Vitamin B12 Vitamin D Gabapentin 300 MG Capsule 1 capsule before bedtime Orally Once a day Omeprazole 40 MG Capsule Delayed Release TAKE 1 CAPSULE BY MOUTH EVERY DAY Oral oxyCODONE HCl 5 MG Tablet TAKE 1 TO 2 TABLETS BY MOUTH EVERY 6 HOURS NEEDED FOR PAIN *PER INS MAX 6 TABS/DAILY* Oral Meclizine HCl 12.5 MG Tablet Oral Methocarbamol 500 MG Tablet Oral Teriparatide 600 MCG/2.4ML Solution Pen-injector Subcutaneous Taking Celecoxib Taking Olmesartan Medoxomil Taking Atorvastatin Calcium Taking Trulicity 0.75 MG/0.5ML Solution Pen-injector as directed Subcutaneous Taking Pancreaze Taking metFORMIN HCl 500 MG Tablet 1 tablet with a meal Orally Once a day Taking hydrOXYzine HCl 25 MG Tablet 1 tablet as needed Orally every 8 hrs Taking Vitamin C Taking Vitamin B12 Taking Vitamin D Taking Gabapentin 300 MG Capsule 1 capsule before bedtime Orally Once a day Taking Omeprazole 40 MG Capsule Delayed Release TAKE 1 CAPSULE BY MOUTH EVERY DAY Oral Taking oxyCODONE HCl 5 MG Tablet TAKE 1 TO 2 TABLETS BY MOUTH EVERY 6 HOURS NEEDED FOR PAIN *PER INS MAX 6 TABS/DAILY* Oral Taking Meclizine HCl 12.5 MG Tablet Oral Taking Methocarbamol 500 MG Tablet Oral Taking Teriparatide 600 MCG/2.4ML Solution Pen-injector Subcutaneous Not-Taking/PRNNystatin-Triamcinolone 150055- 0.1 UNIT/GM Cream APPLY DAILY TO SKIN TO AFFECTED AREA TWICE A DAY FOR 2 WEEKS Ciclopirox Olamine 0.77 % Cream APPLY TO AFFECTED AREA EXTERNALLY TO FEET TWICE A DAY 30 DAYS Doxycycline Terbinafine HCl 250 MG Tablet 1 tablet Orally Once a day for 7 days days then stop for 3 weeks repeat cycle Medication List reviewed and reconciled with the patientNot-Taking/PRN Nystatin-Triamcinolone 000528-1.1 UNIT/GM Cream APPLY DAILY TO SKIN TO AFFECTED AREA TWICE A DAY FOR 2 WEEKS Not-Taking/PRN Ciclopirox Olamine 0.77 % Cream APPLY TO AFFECTED AREA EXTERNALLY TO FEET TWICE A DAY 30 DAYS Not- Taking/PRN Doxycycline Not-Taking/PRN Terbinafine HCl 250 MG Tablet 1 tablet Orally Once a day for 7 days days then stop for 3 weeks repeat cycle Medication List reviewed and reconciled with the patient * Allergies:?Shrimp FlavorMilk -related Compoundsyes[Allergies Verified] Objective: * Vitals:?Ht: 5ft 8.5in, Wt:15 5, BMI:23.22, Shoe size: 10-11, BP:130/82mm Hg, BS: 123, Ht-cm: 173.99 cm, Wt-k.31 kg. * ???Past Orders: ???Lab:HEMOGLOBIN A1C (GLYCO HEMOGLOBIN) (Order Date - 07/23/2024) (Collection Date & Time - 10/24/2024 11:13 AM) ? Value Reference Range ?HEMOGLOBIN A1C % (HH) 6.2 * Examination: ???Ophthalmology Referral: ?DIABETES EYE EXAM?Procedure Performed:?Yes ?Date of Exam Performed?08/22/2024 ?Diabetic Retinopathy Screening:?Yes ?Findings of Diabetic Eye Exam:?no retinopathy?General Examination: ?GENERAL APPEARANCE:?Reveals a pleasant, alert, well nourished, well- developed, well hydrated individual, who demonstrates proper attention to hygiene/body habitus, and is in no acute distress, Pt serves as own historian for office visit today.?ORIENTED:?person, place, and time.?FOOT EXAM:?Lower Extremity Neurological Exam performed:?Yes ?Visual exam of foot performed:?Yes ?Date?10/24/2024 ?Sensory testing performed:?sensations diminished ?Sensory and motor testing performed:?sensations diminished ?Footwear Evaluation?Footwear Evaluation performed:?Yes?Dermatologic: ?SKIN FINDINGS:?Skin exam reveals Keratotic lesion(s) located at ,Plantar Heel(s)B/L, , , Skin shows sign(s) of, dryness, scaling, in a stocking fashion, no fissure(s) present, B/L.?Neurological: ?SENSORY:?Neurological exam demonstrates reduced sharp/dull pin prick discrimination reduced light touch sensation reduced vibration sensation reduced proprioception sensation in a stocking fashion 5.07 monofilament test performed at plantar aspects of 5 varied sites per foot shows sensation plantar aspects absent at Forefoot B/L.?Vascular: ?DP PULSES (B):?3/4, B/L.?PT PULSES (B):?3/4, B/L.?CAPILLARY FILL TIME:?immediate, all digits, B/L.?Nails: ?NAILS are:?Elongated, overgrown, dystrophic, lytic, greater than 3mm thick, discolored and friable with crumbly malodorous subungual debris, with dull to no pain on palpation due to neuropathy, ,, TA, T1, T2, T3, T4, T5, T6, T7, T8, T9.?Orthopedic: ?DIGITAL DEFORMITIES:?Digital contracture, PIPJ, 2-5 B/L, incompl-reducible to push-up test, no over, nor underlapping,?there is?evidence of shoe producing skin irritation.?FOOTWEAR:?good condition , worn, non-supportive, shoe gear properties exacerbate patient's foot/toe deformity.? Assessment: * Assessment: 1.?Type 2 diabetes mellitus with diabetic polyneuropathy - E11.42???2.?Tinea unguium - B35.1???3.?Other hammer toe(s) (acquired), right foot - M20.41 (Primary)???Specify :Chronic problem, Worse (4),Rx Management (4)???4.?Other hammer toe(s) (acquired), left foot - M20.42???Specify :Chronic problem, Worse (4),Rx Management (4)???5.?Xerosis of skin - L85.3???Specify :Acute problem, Uncomplicated (3),Rx Management (4)??? Plan: * Treatment: 2.?Type 2 diabetes mellitus with diabetic polyneuropathy?Procedure: 24381-DCWZ SKIN LESIONS, 2 TO 4 3.?Tinea unguium?Procedure: 45904-QTQBGGN NAIL, 6 OR MORE 4.?Xerosis of skin? Start Ammonium Lactate Cream, 12 %, 1 application, Externally to affected areas of dry skin to feet except for between the toes, Twice a day, 30 days, 280, Refills 3.?? * Procedures:?Debride Nail 6-10:?Nail debridement?Due to the clinical pathology outlined in the exam findings, performance of this nail treatment is medically necessary as its management by an unskilled/untrained nonprofessional would put this patients foot and overall health at risk. Therefore, debridement to affected nail(s), as described in exam ( TA, T1, T2, T3, T4, T5, T6, T7, T8, T9, ___ ), was performed exclusively by the physician of record to reduce/remove overall nail length, girth, thickness, subungual debris, and necrotic tissue, by manual and/or electrical means through the use of a nail nipper and/or dremel-type drier and grinder tender, to a more viable healthy nail plate or bed tissue 6- 10 nails in total. Silver nitrate was used for any petechial bleeding as necessary. Definitive antifungal treatment options, both pharmaceutical and surgical, have been reviewed and discussed with the patient. The patient solely prefers the use of intermittent/as needed professional debridement services for their nail condition and understands the need for additional periodic treatments to maintain effectiveness in symptomatic relief - 94204.?Keratoma Treatment:?Parring or Cutting of Benign Hyperkeratotic Lesion(s)?(-56) 2-4 Lesions - Due to the at risk nature of the patients medical condition as documented in the exam findings, performance of this keratoderma treatment is medically necessary as its management by an unskilled/untrained nonprofessional would put this patients foot and overall health at risk. Therefore, the benign hyperkeratotic lesions, ( 2 ) in total, locations as stated and described in the exam ( Plantar Heel(s)B/L, ___ ), were pared, and/or cut utilizing a sterile 15 blade, tissue nippers, and/or power dremel instrumentation by the physician of record - [id number].? * Procedure Codes:?37686 DEBRI DE NAIL, 6 OR MORE, Modifiers: XS 18862 TRIM SKIN LESIONS, 2 TO 4, Modifiers: XS * Preventive Medicine:? ??Counseling:?Discussion:?-14: Office or other outpatient visit for the evaluation and management of an established patient, which required a medically appropriate history and/or examination and MODERATE level of DECISION MAKING for: 1 OR MORE CHRONIC PROBLEM(S) THATS WORSENING, 2 STABLE CHRONIC PROBLEMS, A NEWLY DIAGNOSED PROBLEM WITH UNCERTAIN PROGNOSIS, AN ACUTE COMPLICATED INJURY WITH MULTIPLE TREATMENT OPTIONS, OR AN ACUTE PROBLEM WITH ACCOMPANYING SYSTEMIC SYMPTOMS, THAT POSE(S) A MODERATE RISK OF MORBIDITY. THIS CONDITION MAY ALSO INCLUDE RX DRUG MANAGEMENT, OR A DECISON FOR MINOR SURGERY. The visit on the day of the encounter encompassed interpreting the data and educating the patient as to the nature of their condition, treatment options available according to their individual PMH, meds, allergies, and overall health/living conditions, as well as any potential risks or complications that may occur from a failure to adhere to, and participate in, the recommended course of therapy. The discussion included a complete verbal, and/or written explanation of the examination results, any x-rays taken, the proposed diagnosis, and outline of the treatment plan. A schedule for future care needs was also explained. The patient verbalized an understanding of the instructions at this time and agreed to be an active participant in their treatment. If the patient should think of any questions or concerns after the visit, I have encouraged the patient to call the office.?Digital Surgery:?We elected to try conservative treatment at the present time.?Digital Treatment:?HT- I explained to the patient the possible etiologies of Hammertoes, including genetics/foot type/shoegear/activity level/exercise routine and the risks/benefits of all the different treatment options for their pain including: No treatment at all, Rest, Ice, New/supportive/wider/deeper Shoe gear, Digital Padding/Strapping/Taping/Bracing/Gel protective sleeves, Foot/Ankle AFO Bracing, Stretching exercises, Deep Tissue Massage, Arch support/shoe inserts with splay metatarsal padding, and Custom orthoses. I insisted that any digital devices be removed daily and not worn overnight for safety. The patient is to carefully examine the toes daily for any skin irritation while using any splinting or padding device. The advantages and disadvantages of each option were discussed and the patients questions re: shoe gear, padding, custom vs prefabricated inserts, activity level, and consistency in home treatment regimens for optimal success were answered to their verbally confirmed satisfaction, Recomm, rest, ice, proper shoegear, padding, orthotics, anti-inflammatories or tylenol as tolerated, topical analgesics, cortisone injections.?Shoe Gear Counseling:?SHOE Rx - The patient was counseled in great detail on their muscoloskeletal foot and toe deformities which coincided with the dermatological presentations visualized on exam. We discussed how their deformities put the integrity of their feet at risk for potential pedal complications which makes the accomidative diabetic shoes and cutomizable inserts medically necessary. We discussed the different shoe and insert treatment types and options, as well as the important advantages for adhering to regularly wearing these accomidative devices daily. The patient was made aware of the fact that a failure to abide by these recommedations may be deleterious to their foot health as they are able to prevent many pedal complications such as skin irritation, skin ulceration, infection, and even loss of toe/foot/leg/or life. Time was also spent with the patient dispensing and discussing proper diabetic footcare techniques including daily skin moisturization, daily foot inspection for any interruption in skin integrity including open lesions, or sign of infection such as redness/malodor/drainage/swelling. Also discussed and recommended were procedures regarding daily shoe inspection for the presence of internal foreign bodies as well as any visualized irregular shoe or insert wear. Patient questions re: shoes, inserts, and self foot inspections were answered to their satisfaction as the patient verbally confirmed a full understanding of the above information. A Rx for Extra Depth Orthopedic Shoes with 3 pair of custom heat-molded inserts was dispensed.?Xerosis:?The patient was counseled on the diagnosis, potential etiologies, and treatment options for their skin condition. We discussed the risks and benefits of each option from performing no treatment, to utilizing OTC topical skin creams/ointments, to utilizing prescription topical creams/ointments, to utilizing customized compounded topical medications and use of nocturnal occlusion with any/all previously detailed therapies. We discussed the advantages and disadvantages of each possible treatment and importance for adherence to all the recommended therapies for optimum success and avoid potential complications such as open sore/infection/possible hospitalization. We discussed the potential effectiveness of each topical preparation as well as each ones possible side effects and/or patient medication interactions. Patient questions re: use, dosage, successful outcomes, and application consistency were reviewed and the patient verbalized that all answers were clearly understood. The patient has decided to apply Rx skin creams to their feet save the interspaces while paying special attention to the heels. Such was sent to their pharmacy at the time of visit.? ??Screening/Special Tests:?Fall Risk?Assessment:?Performed ?Plan of Care:?Documented ?Type of fall plan of care:?Balance, strength and gait training or instruction provided pt presently in PT ?Screening:?One fall with injury in the past year ?FALLS: Screening for Future Fall Risk?Have you had any falls with injury in the past year??Yes * Follow Up:?6 Months * Images: * Sign off status: Completed true * Provider:?Hollie Barksdale DPM Date:?2024 Generated for Khadijah fajardo/Cal/Tenisha on:?11/08/2024 12:37 PM EDT History and Physical Notes * HPI (History of Present Illness) Category Sub-Category Detail Notes Category Not es Toe pain Location: B/L feet Duration: several years Course: worse Aggravated by: shoes, any pressure Treatments: change in shoes Skin problems Nature: dryness , scaling Location: B/L Duration: several days Course: worse At Risk footcare Pt States Last PCP Visit: Date: 4 Examination Category Sub-Category Detail Notes Category Not es Neurological SENSORY: Neurological exa m demonstrates reduced sharp/dull pin prick discrimination reduced light touch sensation reduced vibration sensation reduced proprioception sensation in a stocking fashion 5.07 monofilament test performed at plantar aspects of 5 varied sites per foot shows sensation plantar aspects absent at Forefoot B/L Dermatologic SKIN FINDINGS: Skin exam reveal s Keratotic lesion(s) located at ,Plantar Heel(s)B/L, , , Skin shows sign(s) of, dryness, scaling, in a stocking fashion, no fissure(s) present, B/L ULCER: Orthopedic FOOTWEAR: good condition , worn, non-supportive, shoe gear properties exacerbate patient's foot/toe deformity DIGITAL DEFORMITIES: Digital contracture , PIPJ, 2-5 B/L, incompl-reducible to push-up test, no over, nor underlapping, there is evidence of shoe producing skin irritation General Examination GENERAL APPEARANCE: Reveals a pleasant, alert, well nourished, well-developed, well hydrated individual, who demonstrates proper attention to hygiene/body habitus, and is in no acute distress, Pt serves as own historian for office visit today FOOT EXAM: Lower Extremity Neurological Exa m performed:: Yes Visual exam of foot performed:: Yes Date: 10/24/2024 Sensory testing performed:: sensations d iminished Sensory and motor testing performed:: se nsations diminished ORIENTED: person, place, and t lisa Footwear Evaluation Footwear Evaluation performe d:: Yes Ophthalmology Referral DIABETES EYE EXAM Procedure Perform ed:: Yes ?Date of Exam Performed: 08/22/2024 Diabetic Retinopathy Screening:: Yes Findings of Diabetic Eye Exam:: no retin opathy Vascular DP PULSES (B): 3/4, B/L PT PULSES (B): 3/4, B/L CAPILLARY FILL TIME: immediate, all digi ts, B/L Nails NAILS are: Elongated, overg rown, dystrophic, lytic, greater than 3mm thick, discolored and friable with crumbly malodorous subungual debris, with dull to no pain on palpation due to neuropathy, ,, TA, T1, T2, T3, T4, T5, T6, T7, T8, T9
--- OUTSIDE RECORDS SUMMARY | 2024-11-08 12:37 | XMS_ITS | Patient Health Record ---
Author Organization [facility] Address [address] [place] [address] Care Team Providers Care Research Chemist Name Role Phone Wilbert SIMPSON, Silverio Primary Care Provider Jennifer vailable Black, Hollie Unavailable [phone] Allergies Allergen (clinical drug ingredient) Drug/Non Drug Allergy documented on EMR Reaction Allergy Type Onset Date Status Shrimp Flavor Unknown Drug Allergy Act antonio Milk-related Compounds Unknown Drug Allergy Active Results Component Value Reference Range Notes HEMOGLOBIN A1C (GLYCOHEMOGLO BIN) Reviewed date:04/27/2024 11:05:08 AM Interpretation: Performing Lab: Notes/Report: HEMOGLOBIN A1C % (HH) 6.2 HEMOGLOBIN A1C (GLYCOHEMOGLO BIN) Reviewed date:10/24/2024 11:14:01 AM Interpretation: Performing Lab: Notes/Report: HEMOGLOBIN A1C % (HH) 6.2 Reason For Referral No Information Medications Medication SIG (Take, Route, Frequency, Duration) Notes Start Date End Date Status Celecoxib Active Ammonium Lactate 12 % 1 application Exte rnally to affected areas of dry skin to feet except for between the toes Twice a day for 30 days Active Vitamin C Active Methocarbamol 500 MG Oral for 20 Days Active Extra Depth Orthopedic Shoes (1 Pair) with Customized Heat Molded Multidensity Innersoles (3 Pair) as directed Dx: NIDDM/Polyneuropathy (E11.42), Hammertoe Foot Deformity (M20.41,M20.42), Preulcerative Skin Lesion(s) (L85.1 10/24/2024 Active Vitamin B12 Active Teriparatide 600 MCG/2.4ML Subcutaneous for 28 Days Act antonio Vitamin D Active Gabapentin 300 MG 1 capsule before bed time Orally Once a day Active Trulicity 0.75 MG/0.5ML as directed Subcutaneous Active Doxycycline Not-Taki ng Pancreaze Active Terbinafine HCl 250 MG 1 tablet Orally O nce a day for 7 days days then stop for 3 weeks repeat cycle for 90 days 06/22/2022 Not-Taking metFORMIN HCl 500 MG 1 tablet with a brice l Orally Once a day Active oxyCODONE HCl 5 MG TAKE 1 TO 2 TABLETS BY MOUTH EVERY 6 HOURS NEEDED FOR PAIN *PER INS MAX 6 TABS/DAILY* Oral for 7 Days Active hydrOXYzine HCl 25 MG 1 tablet as needed Orally every 8 hrs Active Meclizine HCl 12.5 MG Oral for 5 Days Active Omeprazole 40 MG TAKE 1 CAPSULE BY MO UT EVERY DAY Oral for 90 Days Active Olmesartan Medoxomil Active Nystatin-Triamcinolone 930687-5.1 UNIT/GM APPLY DAILY TO SKIN TO AFFECTED AREA TWICE A DAY FOR 2 WEEKS for 30 Not-Takin g Atorvastatin Calcium Active Ciclopirox Olamine 0.77 % APPLY TO AFFECTED AREA EXTERNALLY TO FEET TWICE A DAY 30 DAYS for 30 Not-Taking Immunizations Vaccine Route Administration Date Status Comme [...] Problem Acquired hammer toe of right foot (781522413653514 5) Other hammer toe(s) (acquired), right foot (M20.41) Active confirmed Problem Acquired hammer toe of left foot (632257398025466 3) Other hammer toe(s) (acquired), left foot (M20.42) Active confirmed Problem Localized, primary osteoarthritis of the ankle and/or foot (544120101) Primary osteoarthritis, left ankle and foot (M19.072) Active confirmed Problem Ulcer of toe (717418541) Non-pressure chronic ulcer of other part of right foot limited to breakdown of skin (L97.511) Active confirmed Problem Polyneuropathy due to type 2 diabetes mellitus (506153906) Type 2 diabetes mellitus with diabetic polyneuropathy (E11.42) Active confirmed Problem Ulcer of heel (644758573) Ulcer of right heel and midfoot, limited to breakdown of skin (L97.411) Active confirmed Problem Ulcer of toe of right foot (disorder) (953300368504994 01) Skin ulcer of toe of right foot, limited to breakdown of skin (L97.511) Active confirmed Nonapplicable Problem Ulcer of toe of left foot (disorder) (729975718861264 02) Skin ulcer of toe of left foot, limited to breakdown of skin (L97.521) Active confirmed Nonapplicable Vital Signs Blood pressure diastolic 82 mm Hg 10/24/2024 Height 5ft 8.5in in 10/24/2024 Blood pressure systolic 130 mm Hg 10/24/2024 Weight 155 lbs 10/24/2024 BMI 23.22 kg/m2 10/24/2024 Procedures Procedure Date Ordered Date Performed Result Body Sit e 43007-LBIQNQC NAIL, 6 OR MORE 04/27/2024 N/A 62268-OEFG SKIN LESIONS, 2 TO 4 04/27/2024 N/A 83880-NPJLDZL NAIL, 6 OR MORE 10/24/2024 N/A 30987-LZGS SKIN LESIONS, 2 TO 4 10/24/2024 N/A Encounters Encounter Location Date Provider Diagnosis [facility] [address] 04/27/2024 Hollie Black Type 2 diabetes van itus with diabetic polyneuropathy E11.42 and Tinea unguium B35.[address] [facility] [address] 10/24/2024 Hollie Black Type 2 diabetes van itus with diabetic polyneuropathy E11.42 ; Tinea unguium B35.1 ; Other hammer toe(s) (acquired), right foot M20.41 ; Other hammer toe(s) (acquired), left foot M20.42 and Xerosis of skin L85.3 Assessments Encounter Date Diagnosis (ICD Code) Assessment Notes Treatment Notes Treatment Clinical Notes Section Notes 04/27/2024 Tinea unguium (ICD-10 - B35.1) 04/27/2024 Type 2 diabetes mellitus with diabetic polyneuropathy (ICD-10 - E11.42) 10/24/2024 Type 2 diabetes mellitus with diabetic polyneuropathy (ICD-10 - E11.42) 10/24/2024 Tinea unguium (ICD-10 - B35.1) 10/24/2024 Other hammer toe(s) (acquired), right foot (ICD-10 - M20.41) Patient Educated with: DIABETIC FOOT CARE INSTRUCTIONS. pdf (DIABETIC FOOT CARE INSTRUCTIONS. pdf) 10/24/2024 Other hammer toe(s) (acquired), left foot (ICD-10 - M20.42) 10/24/2024 Xerosis of skin (ICD-10 - L85.3) 04/27/2024 Other Plan Of Treatment Pending Test Test Name Order Date *Liver Function Test (LFT) 08/05/2022 00532-WCBAXRN NAIL, 6 OR MORE 10/24/2024 62099-TGYZSYW NAIL, 6 OR MORE 11/24/2021 09727-UCKOVMV NAIL, 6 OR MORE 02/09/2022 52907-JPWHSHG NAIL, 6 OR MORE 04/20/2022 53290-KJECKLY NAIL, 6 OR MORE 06/22/2022 95056-YZXRUUY NAIL, 6 OR MORE 10/21/2023 75103-EAXUUFR NAIL, 6 OR MORE 04/27/2024 19599-Kapsracd Plate 09/30/2023 00617-Vpzyfigb Plate Each Additional 04/2024 56764- Debride <25 sq cm 10/21/2023 88689- Debride <25 sq cm 04/20/2022 65527- Debride <25 sq cm 11/24/2021 38581-RPNR SKIN LESIONS, 2 TO 4 11/25/19 22 49007-ZTVD SKIN LESIONS, 2 TO 4 02/10/20 22 63225-NPHV SKIN LESIONS, 2 TO 4 04/20/20 22 65380-FODH SKIN LESIONS, 2 TO 4 06/22/20 22 52000-BEZM SKIN LESIONS, 2 TO 4 10/21/19 24 12127-STFR SKIN LESIONS, 2 TO 4 10/25/19 25 73678-UILJ SKIN LESIONS, 2 TO 4 04/27/20 24 Next Appt Details Provider Name:Hollie Barksdale , 01/23/2025 11:45:00 AM, [address] [facility], [place], [address], Insurance Providers Payer Name Payer Address Payer Phone Subscriber Number Group Number Insured Name Patient Relationship to Insured Coverage Start Date Coverage End Date [facility] [address] [place] [address] [id number] Marina Sprague Self - patient is the insured Medical (General) History Medical History History ICD Code Arthritis Back,Hip,and Knee pain Broken bones Numbness Osteoporosis Poor circulation Sciatica chronic sinusitis Measles Chicken pox Transfusions Surgical History Surgery Date(Month/Year) deviated septum repair section gall bladder removal Lam's neuroma appendix hard corn Hospitalization History Reason Date(Month/Year) Fractured hip 09/15 [facility], pneumonia 2023 [facility] bp issues 03/2023 [facility] low sodium, influenza 12/15/21
--- OUTSIDE RECORDS SUMMARY | 2024-11-08 12:38 | XMS_ITS ---
Author Organization [facility] Address [address] [place] [address] Care Team Providers Care Technician Terminal And Repeater Name Role Phone Wilbert SIMPSON, Silverio Primary Care Provider Jennifer vailable Black, Hollie Unavailable [phone] Allergies Allergen (clinical drug ingredient) Drug/Non Drug Allergy documented on EMR Reaction Allergy Type Onset Date Status Shrimp Flavor Unknown Drug Allergy Act antonio Milk-related Compounds Unknown Drug Allergy Active REASON FOR VISIT At Risk Footcare Medications Medication SIG (Take, Route, Frequency, Duration) Notes Start Date End Date Status Nystatin-Triamcinolone 654660-1.1 UNIT/GM APPLY DAILY TO SKIN TO AFFECTED [...] Ordered Date Performed Result Body Sit e 36800-EXMIHGO NAIL, 6 OR MORE 04/27/2024 N/A 15851-QZRI SKIN LESIONS, 2 TO 4 04/27/2024 N/A Encounters Encounter Location Date Provider Diagnosis [facility] [address] [place] [address] 04/27/2024 Hollie Barksdale Type 2 diabetes van itus with diabetic polyneuropathy E11.42 and Tinea unguium B35.1 Assessments Encounter Date Diagnosis (ICD Code) Assessment Notes Treatment Notes Treatment Clinical Notes Section Notes 04/27/2024 Type 2 diabetes mellitus with diabetic polyneuropathy (ICD-10 - E11.42) 04/27/2024 Tinea unguium (ICD-10 - B35.1) 04/27/2024 Other Plan Of Treatment Pending Test Test Name Order Date 72358-PYAWEWV NAIL, 6 OR MORE 04/27/2024 26213-QZYQ SKIN LESIONS, 2 TO 4 04/27/20 24 Next Appt Details Follow Up: prn, Reason: Provider Name:Hollie Barksdale , 01/23/2025 11:45:00 AM, [address] [place] [address] [place], [place], [address], Procedure Notes * Category Sub-Category Detail Notes Debride Nail 6-10 Nail debridement Performance o f this nail treatment by a nonprofessional would put this patients foot and overall health at risk. Therefore, nail debridement was performed extensively to reduce/remove overall nail length, girth, thickness, subungual debris, and necrotic tissue, by manual and/or electrical means through the use of a nail nipper and/or dremel-type floor grinder, to a more viable healthy nail plate or bed tissue 6-10. Silver nitrate used for any petechial bleeding as necessary. Definitive antifungal treatment options have been reviewed and discussed with the patient. The patient chooses, no pharmaceutical tx - 95305 Keratoma Treatment Parring or Cutting o f Benign Hyperkeratotic Lesion(s) 48940 (2-4 Lesions) - The Benign hyperkeratotic lesions, as described above were pared, and/or cut utilizing a sterile #15 blade, tissue nippers, and/or dremel Progress Notes * Marina SPRAGUE TDOB:[birth year] (74 yo F)Acc No.[id number]:04/27/2024 Progress Note Patient:?Marina SPRAGUE Provider:?Hollie Barksdale DPM :1950???Age:74 Y???Sex:Female D ate:04/27/2024 Address:[facility] [address], [facility], [id number] Pcp:Silverio Atkins MD Subjective: * Chief Complaints: [...] golf. ?Marital status: . 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 * Medications:?TakingTrulicity 0.75 MG/0.5ML Solution Pen-injector as directed Subcutaneous Pancreaze metFORMIN HCl 500 MG Tablet 1 tablet with a meal Orally Once a day hydrOXYzine HCl 25 MG Tablet 1 tablet as needed Orally every 8 hrs Vitamin C Vitamin B12 Vitamin D Taking Trulicity 0.75 MG/0.5ML Solution Pen-injector as directed Subcutaneous Taking Pancreaze Taking metFORMIN HCl 500 MG Tablet 1 tablet with a meal Orally Once a day Taking hydrOXYzine HCl 25 MG Tablet 1 tablet as needed Orally every 8 hrs Taking Vitamin C Taking Vitamin B12 Taking Vitamin D Not-Taking/PRNNystatin-Triamcinolone 693017-2.1 UNIT/GM Cream APPLY DAILY TO SKIN TO AFFECTED AREA TWICE A DAY FOR 2 WEEKS Ciclopirox Olamine 0.77 % Cream APPLY TO AFFECTED AREA EXTERNALLY TO FEET TWICE A DAY 30 DAYS Gabapentin 300 MG Capsule 1 capsule before bedtime Orally Once a day Doxycycline Terbinafine HCl 250 MG Tablet 1 tablet Orally Once a day for 7 days days then stop for 3 weeks repeat cycle Medication List reviewed and reconciled with the patientNot-Taking/PRN Nystatin-Triamcinolone 910687-7.1 UNIT/GM Cream APPLY DAILY TO SKIN TO AFFECTED AREA TWICE A DAY FOR 2 WEEKS Not-Taking/PRN Ciclopirox Olamine 0.77 % Cream APPLY TO AFFECTED AREA EXTERNALLY TO FEET TWICE A DAY 30 DAYS Not-Taking/PRN Gabapentin 300 MG Capsule 1 capsule before bedtime Orally Once a day Not-Taking/PRN Doxycycline Not-Taking/PRN Terbinafine HCl 250 MG Tablet [...] HEMOGLOBIN) (Order Date - 04/27/2024) (Collection Date & Time - 04/27/2024 11:04 AM) ? Value Reference Range ?HEMOGLOBIN A1C % (HH) 6.2 * Examination: ???Ophthalmology Referral: ?DIABETES EYE EXAM?Procedure Performed:?Yes ?Date of Exam Performed?12/14/2023 ?Diabetic Retinopathy Screening:?Yes ?Findings of Diabetic Eye Exam:?no retinopathy?General Examination: ?GENERAL APPEARANCE:?Reveals a pleasant, alert, well nourished, well- developed, well hydrated individual, who demonstrates proper attention to hygiene/body habitus, and is in no acute distress, Pt serves as own historian for office visit today.?ORIENTED:?person, place, and time.?FOOT EXAM:?Lower Extremity Neurological Exam performed:?Yes ?Visual exam of foot performed:?Yes ?Date?04/27/2024 ?Sensory testing performed:?sensations diminished ?Sensory and motor testing performed:?sensations diminished ?Footwear Evaluation?Footwear Evaluation performed:?Yes?Dermatologic: ?SKIN FINDINGS:?Skin exam reveals Keratotic lesion(s) located at , Heel(s) , B/L.?Neurological: ?SENSORY:?Neurological exam demonstrates, reduced sharp/dull pin prick discrimination , reduced vibration sensation, 5.07 monofilament test performed at plantar aspects of 5 varied sites per foot shows sensation, reduced , B/L.?Vascular: ?DP PULSES (B):?3/4, B/L.?PT PULSES (B):?3/4, B/L.?CAPILLARY FILL TIME:?immediate, all digits, B/L.?Nails: ?NAILS are:?Elongated, overgrown, dystrophic, lytic, greater than 3mm thick, discolored and friable with crumbly malodorous subungual debris, with dull to no pain on palpation due to neuropathy, , 1-5 B/L.?Orthopedic: ?FOOTWEAR:?good condition.? Assessment: * Assessment: 1.?Tinea unguium - B35.1???2 .?Type 2 diabetes mellitus with diabetic polyneuropathy - E11.42??? Plan: * Treatment: 2.?Type 2 diabetes mellitus with diabetic polyneuropathy?Procedure: 02767-PHCD SKIN LESIONS, 2 TO 4 * Procedures:?Debride Nail 6-10:?Nail debridement?Performance of this nail treatment by a nonprofessional would put this patients foot and overall health at risk. Therefore, nail debridement was performed extensively to reduce/remove overall nail length, girth, thickness, subungual debris, and necrotic tissue, by manual and/or electrical means through the use of a nail nipper and/or dremel-type floor grinder, to a more viable healthy nail plate or bed tissue 6-10. Silver nitrate used for any petechial bleeding as necessary. Definitive antifungal treatment options have been reviewed and discussed with the patient. The patient chooses, no pharmaceutical tx - 02498.?Keratoma Treatment:?Parring or Cutting of Benign Hyperkeratotic Lesion(s)?61158 (2-4 Lesions) - The Benign hyperkeratotic lesions, as described above were pared, and/or cut utilizing a sterile #15 blade, tissue nippers, and/or dremel.? * Procedure Codes:?13004 DEBRI DE NAIL, 6 OR MORE, Modifiers: XS 90413 TRIM SKIN LESIONS, 2 TO 4, Modifiers: XS * Preventive Medicine:? ??Screening/Special Tests:?Fall Risk?Screening:?No falls in the past year ?FALLS: Screening for Future Fall Risk?Have you had any falls with injury in the past year??No * Follow Up:?prn * Images: * Sign off status: Completed true * Provider:?Hollie Barksdale DPM Date:?2023 Generated for Khadijah fajardo/Cal/Paulysmitting on:?11/08/2024 12:37 PM EDT History and Physical [...] located at , Heel(s) , B/L ULCER: Orthopedic FOOTWEAR: good condition General Examination GENERAL APPEARANCE: Reveals a pleasant, alert, well nourished, well-developed, well hydrated individual, who demonstrates proper attention to hygiene/body habitus, and is in no acute distress, Pt serves as own historian for office visit today FOOT EXAM: Lower Extremity Neurological Exa m performed:: Yes Visual exam of foot performed:: Yes Date: 04/27/2024 Sensory testing performed:: sensations d iminished Sensory and motor testing performed:: se nsations diminished ORIENTED: person, place, and t lisa Footwear Evaluation Footwear Evaluation performe d:: Yes Ophthalmology Referral DIABETES EYE EXAM Procedure Perform ed:: Yes ?Date of Exam Performed: 12/14/2023 Diabetic Retinopathy Screening:: Yes Findings of Diabetic [...]
== END 2024-11-08 11:07 | disposition home or self-care (01) ==
LOC: HO.HPS 10:47
PROVIDERS: PCP Internal Medicine; Visit Provider Internal Medicine Pulmonary Disease
DX: J44.9 Chronic obstructive pulmonary disease, unspecified (principal); R91.8 Other nonspecific abnormal finding of lung field
CPT/HCPCS: 99214

== ENCOUNTER 2025-04-15 11:18 | Outpatient (AMB) | payer OTHER, SELFPAY ==
--- OUTSIDE RECORDS SUMMARY | 2025-04-15 12:43 | XMS_ITS | Patient Health Record ---
[facility] Address [address] [place] [address] Care Team Providers Care Email Production Consultant Name Role Phone Wilbert SIMPSON, Silverio Primary Care Provider Jennifer vailable Black, Hollie Unavailable [phone] Allergies Allergen (clinical drug ingredient) Drug/Non Drug [...] Duration) Notes Start Date End Date Status Atorvastatin Calcium Active Meclizine HCl 12.5 MG Oral; Duration: 5 Days Active Trulicity 0.75 MG/0.5ML as directed Subcutaneous Active Methocarbamol 500 MG Oral; Duration: 20 Days Active Celecoxib Active Omeprazole 40 MG TAKE 1 CAPSULE BY MO UTH EVERY DAY Oral; Duration: 90 Days Active Olmesartan Medoxomil Active oxyCODONE HCl 5 MG TAKE 1 TO 2 TABLETS BY MOUTH EVERY 6 HOURS NEEDED FOR PAIN *PER INS MAX 6 TABS/DAILY* Oral; Duration: 7 Days Not-Taking hydrOXYzine HCl 25 MG 1 tablet as needed Orally every 8 hrs Active Extra Depth Orthopedic Shoes (1 Pair) with Customized Heat Molded Multidensity Innersoles (3 Pair) as directed Dx: NIDDM/Polyneuropathy (E11.42), Hammertoe Foot Deformity (M20.41,M20.42), Preulcerative Skin Lesion(s) (L85.1 10/24/2024 Active Vitamin C Active Nystatin-Triamcinolone 351870-6.1 UNIT/GM APPLY DAILY TO SKIN TO AFFECTED AREA TWICE A DAY FOR 2 WEEKS; Duration: 30 Not-Taking Pancreaze Active Teriparatide 600 MCG/2.4ML Subcutaneous; Duration: 28 Days Active metFORMIN HCl 500 MG 1 tablet with a brice l Orally Once a day Active Ammonium Lactate 12 % 1 application Exte rnally to affected areas of dry skin to feet except for between the toes Twice a day; Duration: 30 days Not-Takin g Doxycycline Not-Taki ng Gabapentin 300 MG 1 capsule before bed time Orally Once a day Active Terbinafine HCl 250 MG 1 tablet Orally O nce a day for 7 days days then stop for 3 weeks repeat cycle; Duration: 90 days 06/22/2022 Not-Wil ing Vitamin B12 Active Ciclopirox Olamine 0.77 % APPLY TO AFFECTED AREA EXTERNALLY TO FEET TWICE A DAY 30 DAYS; Duration: 30 Not-Taking Vitamin D Active Immunizations Vaccine Route Administration Date Status Comme nts COVID-19 Pfizer BioNTech Vaccine Unknown 06/01/2021 Adm inistered Influenza Unknown 06/15/2023 Administered Influenza Unknown 06/05/2024 Administered Social History Tobacco Use: Social History [...] Problem Status W/U Status Risk Notes Problem Polyneuropathy due to type 2 diabetes mellitus (113905035) Type 2 diabetes mellitus with diabetic polyneuropathy (E11.42) Active confirmed Vital Signs Blood pressure diastolic 82 mm Hg 01/25/2025 Height 5ft 8in in 01/25/2025 Blood pressure systolic 130 mm Hg 01/25/2025 Weight 155 lbs 01/25/2025 BMI 23.57 kg/m2 01/25/2025 Procedures Procedure Date Ordered Date Performed Result Body Sit e 66187-TJLROFE NAIL, 6 OR MORE 04/27/2024 N/A 79182-CLCX SKIN LESIONS, 2 TO 4 04/27/2024 N/A 41335-PNCSXOK NAIL, 6 OR MORE 10/24/2024 N/A 54247-IOJV SKIN LESIONS, 2 TO 4 10/24/2024 N/A 00809-FIAKMBD NAIL, 6 OR MORE 01/25/2025 N/A 39376-OTTP SKIN LESIONS, 2 TO 4 01/25/2025 N/A Encounters Encounter Location Date Provider Diagnosis [address] [address] 04/27/2024 Hollie Black Type 2 diabetes van itus with diabetic polyneuropathy E11.42 and Tinea unguium B35.[address] [address] 10/24/2024 Hollie Black Type 2 diabetes van itus with diabetic polyneuropathy E11.42 ; Tinea unguium B35.1 ; Other hammer toe(s) (acquired), right foot M20.41 ; Other hammer toe(s) (acquired), left foot M20.42 and Xerosis of skin L85.[address] [address] 01/25/2025 Hollie Black Type 2 diabetes van itus with diabetic polyneuropathy E11.42 and Tinea unguium B35.1 Assessments Encounter Date Diagnosis (ICD Code) Assessment Notes Treatment Notes Treatment Clinical Notes Section Notes 04/27/2024 Tinea unguium (ICD-10 - B35.1) 04/27/2024 Type 2 diabetes mellitus with diabetic polyneuropathy (ICD-10 - E11.42) 01/25/2025 Tinea unguium (ICD-10 - B35.1) 01/25/2025 Type 2 diabetes mellitus with diabetic polyneuropathy [...] of skin (ICD-10 - L85.3) 04/27/2024 Other 01/25/2025 Other Plan Of Treatment Pending Test Test Name Order Date *Liver Function Test (LFT) 08/05/2022 84954-SBBCZGG NAIL, 6 OR MORE 01/25/2025 35165-FOSHTOW NAIL, 6 OR MORE 10/24/2024 58603-HDVDHJH NAIL, 6 OR MORE 11/24/2021 02983-EUQKYEV NAIL, 6 OR MORE 02/09/2022 90519-OJZCVHT NAIL, 6 OR MORE 04/20/2022 39508-PYQQBRW NAIL, 6 OR MORE 06/22/2022 26167-FXPTXOW NAIL, 6 OR MORE 10/21/2023 18410-ZAIYCHD NAIL, 6 OR MORE 04/27/2024 59801-Zyhmftkc Plate 09/30/2023 96432-Kpzdkidr Plate Each Additional 04/2024 74992- Debride <25 sq cm 10/21/2023 50744- Debride <25 sq cm 04/20/2022 36419- Debride <25 sq cm 11/24/2021 80190-GZNL SKIN LESIONS, 2 TO 4 11/25/19 22 43640-EOIT SKIN LESIONS, 2 TO 4 02/10/20 22 15054-JNJO SKIN LESIONS, 2 TO 4 04/20/20 22 13868-FRND SKIN LESIONS, 2 TO 4 06/22/20 22 35560-EVWZ SKIN LESIONS, 2 TO 4 10/21/19 24 76801-PIFH SKIN LESIONS, 2 TO 4 10/25/19 25 54474-ZXHC SKIN LESIONS, 2 TO 4 04/27/20 24 54223-RJGR SKIN LESIONS, 2 TO 4 06/06/20 25 Next Appt Details Provider Name:Hollie Barksdale , 04/30/2025 10:15:00 AM, [address], [place], [address], Insurance Providers Payer Name Payer Address Payer Phone Subscriber Number Group Number Insured Name Patient Relationship to Insured Coverage Start Date Coverage End Date [facility] [address] [place] [address] [id number] Marina Sprague Self - patient is the insured Medical (General) History Medical History History ICD Code Arthritis Back,Hip,and Knee pain Broken bones Numbness Osteoporosis Poor circulation Sciatica chronic sinusitis Measles Chicken pox Transfusions Other hammer toe(s) (acquired), right fo ot M20.41 Other hammer toe(s) (acquired), left rajwinder t M20.42 Surgical History Surgery Date(Month/Year) deviated septum repair section gall bladder removal Lam's neuroma appendix hard corn cataract surgery Hospitalization History Reason Date(Month/Year) broke pelvic bone 09/15 Fractured hip 09/15 [facility], pneumonia 2023 [facility] bp issues 03/2023 [facility] low sodium, influenza 12/15/21
--- OUTSIDE RECORDS SUMMARY | 2025-04-15 12:43 | XMS_ITS | Encounter Summary ---
Author Organization [facility] Address [address] [place] [address] Care Team Providers Care Spindle Maker Name Role Phone Silverio Atkins MD Primary Care Provider [phone] Encounter Details Date Type Department Care Team (Late st Contact Info) Description 04/04/2025 Lab Requisition [facility] - Main Lab [address] [place] [address] Dale Clements MD [address] [place] [address] Dysuria Social History Tobacco Use Types Packs/Day Years Used Date Smoking Tobacco: Every Day Cigarettes 0.5 14.9 Started: 05/07/2010 Smokeless Tobacco: Never Alcohol Use Standard Drinks/Week Comments No 0 (1 standard drink = 0.6 oz pur e alcohol) Comments No Sex and Gender Information Value Date Recorded Sex Assigned at Not on file Legal Sex Female 10:15 PM EST Gender Identity Not on file Sexual Orientation Not on file documented as of this encounter Plan of Treatment Not on file documented as of this encounter Procedures Procedure Name Priority Date/Time Associated Diagnosis Comments BACTERIAL IDENTIFICATION AND SUSCEPTIBILITY, AEROBIC Routine 04/03/2025 12:00 AM EDT Dysuria documented in this encounter Results * (ABNORMAL) Bacterial identification and susceptibility, aerobic (04/03/2025 12:00 AM EDT) Culture, Bacterial ID and Sensitivity Aerococcus urinae(A) SHAHID 04/07/2025 8:04 AM EDT [facility] Comment: Susceptibility testing not routinely performed. If further therapeutic information is required, please consult an infectious disease specialist. The organism value for this result has been updated. These results have been appended to the previously preliminary verified report. Other Urine specimen from urethra / Unknown 04/03/2025 04/04/2025 12:21 PM EDT Narrative [facility] - 04/07/2025 8:04 AM EDT Additional colony types present in insignificant amounts. us Dale Clements MD LAB MICROBIOLOGY - GENER AL ORDERABLES Final Result [facility] [address] [place] [address], documented in this encounter Visit Diagnoses Diagnosis Dysuria documented in this encounter Care Teams Spindle Maker Relationship Specialty Start Date End Date Silverio Atkins MD [address] [place] [address] Rd [address] [place], [place] PCP - General Internal Medicine 01/02/18 documented as of this encounter
--- OUTSIDE RECORDS SUMMARY | 2025-04-15 12:43 | XMS_ITS | Clinical Summary ---
Author Organization [facility] Address [address] [address] Phone Care Team Providers Care Occ Ther Name Role Phone Jocelin Atkins MD Primary Care Provide r Allergies Active Allergy Reactions Criticality Noted Date Comments Crab Itching 10/28/2021 Penicillins 10/28/2021 Medications albuterol 90 mcg/actuation inhaler Inhale 2 puffs into the lungs 2 (two) times a day as needed. Active atorvastatin (LIPITOR) 10 MG tablet Take 10 mg by mouth daily. 1 Active buPROPion (WELLBUTRIN XL) 150 MG ER 24 hr tablet Take 150 mg by mouth daily. Active busPIRone (BUSPAR) 7.5 MG tablet Take 7.5 mg by mouth 2 (two) times a day as needed. 1 Active calcium carbonate (OS-RUBI) 1,250 mg (500 mg elemental) chewable tablet Take 500 mg by mouth daily. 1 Active celecoxib (CELEBREX) 200 MG capsule Take 200 mg by mouth 2 (two) times a day as needed. 2 Active TRELEGY ELLIPTA 200-62.5-25 mcg inhaler Inhale 1 puff into the lungs daily. 2 Active furosemide (LASIX) 20 MG tablet Take 20 mg by mouth daily. /2 tablet (10 mg) Active gabapentin (NEURONTIN) 300 MG capsule Take 300 mg by mouth 2 (two) times a day. Active hydrOXYzine (ATARAX) 25 MG tablet Take 25 mg by mouth 2 (two) times a day as needed. Active PANCREAZE 10,500-35,500- 61,500 unit CpDR capsule Take 10,500 units of lipase by mouth 3 (three) times a day. 2 Active meclizine (ANTIVERT) 12.5 mg tablet Take 12.5 mg by mouth 2 (two) times a day as needed. 2 Active montelukast (SINGULAIR) 10 mg tablet Take 10 mg by mouth daily. Active olmesartan (BENICAR) 20 mg tablet Take 20 mg by mouth daily. 1 Active omeprazole (PRILOSEC) 20 MG capsule Take 20 mg by mouth every morning. 2 Active omeprazole (PRILOSEC) 40 MG capsule Take 40 mg by mouth nightly at bedtime. Active traMADoL (ULTRAM) 50 mg tablet Take 50 mg by mouth 2 (two) times a day as needed. Active methocarbamoL (ROBAXIN) 500 MG tablet TAKE 1 TO 2 TABLETS BY MOUTH EVERY 8 HOURS NEEDED FOR SPASM*NOT TO BE USED WITH TIZANIDINE* 3 Active teriparatide (FORTEO) 20 mcg/dose (600mcg/2.4mL) PnIj Inject 20 mcg under the skin daily. 4 Active glucagon (BAQSIMI) 3 mg/actuation [place] 1 spray by Nasal route once as needed. 2 each 2 4 Active metFORMIN (GLUCOPHAGE-XR) 500 MG 24 hr tabletIndication s:Type 2 diabetes mellitus without complication, without long-term current use of insulin TAKE 2 TABS BEFORE DINNER AND 1 TAB BEFORE BREAKFAST. 270 tablet 4 4 Active FREESTYLE LITE Strp stripsIndication s:Type 2 diabetes mellitus without complication, without long-term current use of insulin 1 each by Percutaneous route 2 (two) times a day. 200 strip 3 4 Active TRULICITY 1.5 mg/0.5 mL subcutaneous injectionIndicat ions:Type 2 diabetes mellitus without complication, without long-term current use of insulin INJECT 0.5 ML (1.5 MG TOTAL) UNDER THE SKIN EVERY 7 DAYS 2 mL 5 5 Active Active Problems Problem Noted Date Diagnosed Date Recurrent tinea pedis 04/06/2022 Assessment & Plan (04/06/2022 4:12 PM EDT): Follows with podiatry. Difficulty with clearing with topical antifungals or terbinafine. Feet with reddened patches, no broken skin. Advised to follow up with podiatry. Optimize glycemic control and general nutrition. Type 2 diabetes mellitus wit hout complication, without long-term current use of insulin 10/29/2021 Assessment & Plan (02/18/2025 2:15 PM EDT): FPG patterns are in excellent control and few later day readings are also in excellent range A1c remains in excellent range Marina has used Repaglinide very sparingly, this is the most likely agent to contribute to hypoglycemia risk so limited use of this is safer especially given Marina excellent glucose control Marina has done well on Trulicity 1.5mg weekly, she is tolerating this well and has had a good response, BMI is in excellent range Will continue Metformin at current dose We discussed that her current regimen of Metformin and GLP1ra therapy is optimal for improving metabolic function without increasing hypoglycemia risk or causing weight gain Advised to continue efforts at healthy lifestyle Has continued to smoke cigarettes ~<1ppd, at increased CV risk due to underlying DM, HTN and smoking history We will meet again in 6 months and Marina will follow up with Sandra Tobias in 3 months, advised to contact us with any questions or concerns Assessment & Plan (08/01/2024 10:17 AM EST): Very good control per meter download though concerning for a few episodes of hypoglycemia Marina is tolerating optimized GLP1ra dosing Continues on metformin, resumed repaglinide but there is evidence of hypoglycemia on meter download Recommended discontinuing repaglinide and reaching out if readings are elevated instead of resuming it, we can discuss alternatives like optimizing GLP1 dosing Will continue GLP1 and metformin, risk of hypoglycemia is much lower with these medications Encouraged efforts at balanced, mindful eating Encouraged efforts at increasing physical activity as tolerated Marina will follow up in 3 weeks as previously scheduled with Sandra Tobias at which time blood sugars can be evaluated after repaglinide discontinuation. Follow up also scheduled with Dr. Dumont in November. Advised to contact office with any questions or concerns. Assessment & Plan (05/11/2024 1:45 PM EDT): FPG patterns are in good control A1c is in excellent range however the result in low desired range may indicate hypoglycemia risk since only fasting blood sugars are monitored, Marina is sensitive to hypoglycemia however she is advised that symptoms may not always be reliable and she may be experiencing hypoglycemia and not be aware of this We discussed some symptoms Marina is having which may indicate drop of glucose into low range We discussed that Repaglinide is the most likely agent to contribute to hypoglycemia risk, advised to d/c Repaglinide when she increases to Trulicity 1.5mg weekly We discussed possible impact of Trulicity on constipation history, this may be more noticeable with dosage increase if due to this, advised to monitor for this; we discussed ensuring adequate hydration, fiber rich diet and stool softeners like Miralax if needed Advised continued regular follow up with GI to continue surveillance of pancreatic issues Will continue Metformin at current dose Advised to continue efforts at healthy lifestyle Has cut down on smoking but continues to smoke ~<1ppd, at increased CV risk due to underlying DM, HTN and smoking history Assessment & Plan (11/30/2023 2:25 PM EDT): Excellent control per CGM, this was reviewed with Marina Gray is interested in optimizing GLP1ra dosing, but was unable to obtain Trulicity 1.5 mg, so remains on 0.75 mg dosing Continues on metformin and repaglinide, tolerating well with no signs of hypoglycemia We reviewed that if at any time Trulicity is increased, Marina could likely benefit from discontinuation of repaglinide to reduce risk of hypoglycemia Encouraged efforts at balanced, mindful eating Encouraged efforts at increasing physical activity as tolerated Marina will follow up in April as previously scheduled with Dr. Dumont, we will follow up in July. Advised to contact office with any questions or concerns. Assessment & Plan (11/16/2023 5:54 PM EDT): Very good control, meter download reviewed with Marina Gray is interested in optimizing GLP1ra dosing, we discussed we can do this but recommending discontinuation of repaglinide to reduce risk of hypoglycemia with higher GLP1 dose and reducing evening metformin given symptoms that could be consistent with lower readings overnight. We also discussed that currently, these medications have been more difficult to obtain, if unable to obtain 1.5 mg dosing, Marina would still benefit from remaining on the 0.75 mg dosing or transitioning to Mounjaro 2.5 mg, whichever option is available Discussed that we could do an unblinded CGM pro trial, which Marina is interested with this, CGM will help to determine risk for hypoglycemia and help guide further medication adjustments as needed Encouraged efforts at balanced, mindful eating Encouraged efforts at increasing physical activity as tolerated Marina will follow up in 2 weeks for CGM interpretation. Advised to contact office with any questions or concerns. Assessment & Plan (09/22/2023 12:00 PM EST): Tod average glucose is 108 which is considerably improved from her last visit and since starting Trulicity. Her proofsheet corrector gave his blessing to start GLP1 therapy in setting of having to take pancreatic enzymes with meals from prior illness with hepato-biliary stones. Started it 3 weeks ago and is mostly well tolerated, reports occasional mild nausea only without pain or emesis. Her glucose has improved by approximately 25 mg/dL and reports good energy level without Sx of hyperglycemia. Marina did experience x2 lows down to 35 one time and was symptomatic, ate gummy bears and improved right away. Lows occurred after some leisurely swimming and hot sun in [place]. If Marina experiences any further daytime lows, she will stop her morning dose of Metformin. Likewise, if she experiences any overnight lows, she will reduce her Metformin to 500mg with supper. Marina will carry snacks or some form of quick sugar ( glucose tabs) on her at all times now. Reviewed hypoglycemia prevention, recognition and management. Additionally, Baqsimi was ordered with instruction provided. No other medication recommendations at this time. Encouraged to continue to make healthy diet choices and remain as physically active as tolerates. Encouraged to contact us with any concerns or questions and follow up in 2 months. Assessment & Plan (08/15/2023 9:44 PM EST): Marina's average FPG is 134 which is higher than 90mg/dL at her last visit. She reports her diet has been somewhat more erratic. She would additionally like to simplify her regimen and consider a GLP1 like Ozempic which would also have weight loss benefits. 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 Marina will first ask her proofsheet corrector if he feels this would be a safe therapy for her. We discussed the risks, common side effects and benefits of SGLP1 therapy. Marina will consider this, but prefers to manage her DM with weekly dosing rather than daily. Lifestyle improvements are likely to make an impact on glucose control and improvement metabolically in general, we spent time discussing importance of good quality sleep, regular activity and healthy diet. Reviewed hypoglycemia prevention, recognition and management. Encouraged to continue to make healthy diet choices and remain as physically active as tolerates. Encouraged to contact us with any concerns or questions and follow up in 2 months. Assessment & Plan (06/15/2023 10:25 AM EDT): Marina's FPGs are in fairly good range around 90, but she occasionally dips too low overnight, 1%, or just to low end of normal range (low 70s). Her PPGs have been higher than her usual which she attributes to her diet recently. Additionally she has had a little more stress with her new cardiac evaluation. We reduced her Repaglinide in the evening to a half tab with a carb dense meal or omit for supper altogether. Lifestyle improvements are likely to make a large impact on glucose control and improvement metabolically in general, we spent time discussing importance of good quality sleep, regular activity and healthy diet. Reviewed hypoglycemia prevention, recognition and management. Encouraged to continue to make healthy diet choices and remain as physically active as tolerates. Encouraged to contact us with any concerns or questions and follow up in 3 months. Only take half tab of Repaglinide before a very carb dense supper otherwise you can skip at dinner. Continue to take it before lunch if having carbs. Assessment & Plan (05/19/2023 3:24 PM EDT): Mts A1c is excellent at 6.6%. He has had some recent health challenges with dizziness and weakness. Scheduled for a cardiac evaluation soon with monitoring and imaging. In an effort to rule out hypoglycemia as a trigger for any cardiac event suggested 2 week CGM trial since she has had a couple 70s and 80s. More consistent glucose data per CGM trial would be helpful to evaluate overall patterns. Marina is agreeable with a sensor placed today. Her average glucose is 136 which is excellent. She continues on a moderate dose of Metformin and Repaglinide before bigger meals. She continues to try to eat healthy and misses the pulmonary rehab exercise program through [facility]. Reviewed hypoglycemia prevention, recognition and management. Encouraged to continue to make healthy diet choices and remain as physically active as tolerates. Encouraged to contact us with any concerns or question and follow up in 2 weeks. Assessment & Plan (01/12/2023 11:58 AM EDT): Mts average sugar is 209 which is reflective of her 2 week steroid taper earlier this month due to a severe sinusitis. Her sugars have trended down since stopping the Prednisone to 130s to 190s. Marina had changed her Metformin dosing to what we discussed, but was told by senior pharmacy technician to not change. Reassured her that 1g Metformin xr before dinner and 500mg prior to breakfast better matches her eating patterns and is fairly safe. She is tolerating Repaglinide well. We increased her to 1mg prior to meals today. Reviewed importance of taking when expecting to eat a meal with carbs. We discussed taking 2 prior to a large celebratory, high carb meal or only half if small amount of carbs. Marina continues to eat a fairly healthy diet and remains active. Reviewed hypoglycemia prevention, recognition and management. Encouraged to continue to make healthy diet choices and remain as physically active as tolerates. Encouraged to contact us with any concerns or questions and follow up in 4 months Assessment & Plan (10/18/2022 4:44 PM EST): Mts A1c continues to steadily increase to 7.9%. Her Average sugar is 163 during FPG and bedtime testing. She continues on Metformin XR 500mg twice daily and a modest dose of Repaglinide prior to meals. She continues with Creon. Her diet has not been as healthy lately. Marina finds herself eating/snacking foods she had not been interested in until recently. Reassured Marina that this occasionally happens and can be short lived. We discussed ideas to help get her diet healthier and ease her cravings. Encouraged higher fiber content and more protein in general. Also reviewed different food/diet apps which may be helpful for her to better understand Carb content of different items. Encouraged her visit with family educator. No medications adjusted today. Reviewed hypoglycemia prevention, recognition and management. Encouraged to continue to make healthy diet choices and remain as physically active as tolerates. Encouraged to contact us with any concerns or question and follow up in 3 months. Assessment & Plan (06/09/2022 9:12 PM EDT): Marina's A1c has increased since her last visit from 6.7% to 7.4% on Metformin XR 500 mg twice daily, Repaglinide 0.5mg occasionally before meals and lifestyle modifications. She continues to lose weight although modest amount now versus earlier in the year. She tends to skip breakfast, have a light lunch, and eat a small meal with dinner. 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 Marina continues to experience low back pain hindering her efforts to exercise. We discussed increasing Metformin initially to 2 tabs in the evening and then 2 tabs in the morning after 2 weeks due to increased A1c. Pain may be contributing to elevated sugars. Strongly encouraged her to have her low back pain furthur evaluated. She plans to follow up this week with her PCP. Goal to optimize glycemic control to reduce recurrent tinea pedis. Discussed small dose repaglinide for high carb meals as indicated, sporadic. Reviewed risks and benefits. CMP ordered to evaluate kidney and hepatic function. Discussed slightly increased lunch portions to prevent additional weight loss, preferably higher protein as tolerates. Continue with Pancreaze as prescribed by GI for nutrient absorption. Reviewed hypoglycemia prevention, recognition and management. Encouraged to continue to make healthy diet choices and remain as physically active as she is able to comfortably tolerate. Encouraged to contact us with any concerns or question and follow up 4 months. Assessment & Plan (04/06/2022 4:14 PM EDT): Marina's glycemic control has remained fairly stable with an A1C of 6.7% on Metformin XR 500 mg twice daily and lifestyle modifications. She has lost 4lbs over 6 weeks and 11lbs since late November (7% of her body weight). She tends to skip breakfast, have a light lunch, and eat a small meal with dinner. This seems to be the best tolerated eating pattern for Marina with her pancreatic duct stones and challenges. More consistent glucose data per CGM trial would be helpful to evaluate overall patterns. Marina is amenable for a fall trial due to easier schedule. Marina additionally reports frequent nausea with recent onset of intermittent low back pain. She feels the nausea may be in response to the back pain versus another cause, but is not certain. No adjustment to Metformin which she is tolerating well at moderate dose. Pain may be contributing to elevated sugars. Strongly encouraged her to have her low back pain furthur evaluated. She plans to follow up this week with her PCP. Goal to optimize glycemic control to reduce recurrent tinea pedis. Discussed small dose repaglinide for high carb meals as indicated, sporadic. Reviewed risks and benefits. CMP ordered to evaluate kidney and hepatic function. Discussed slightly increased lunch portions to prevent additional weight loss, preferably higher protein as tolerates. Continue with Pancreaze as prescribed by GI for nutrient absorption. She plans to follow up for previously mentioned, but not scheduled colonoscopy. Reviewed hypoglycemia prevention, recognition and management. Encouraged to continue to make healthy diet choices and remain as physically active as she is able to comfortably tolerate. Encouraged to contact us with any concerns or question and follow up 2 months. Assessment & Plan (12/01/2021 4:16 PM EDT): Marina's glucose control has improved with metformin 500 mg twice daily which she is tolerating well. Her SEAN-65 was negative with 1.8 C-peptide level reflect slightly less than moderate insulin production at present. Her FPG is occasionally elevated which be be due to an occasional late night snack. Gastroenterology imaging has found no malignancy or irregularity in her pancreas, although there are stones in her pancreatic duct. She continues on Pancreaze prior to meals. No medications were adjusted or added at this time. Consider CGM trial with next visit if A1C increases as well as increasing metformin dose. Reviewed hypoglycemia prevention, recognition and management. Encouraged to continue to make healthy diet choices and remain as physically active as tolerates. Encouraged to contact us with any concerns or question and follow up in 4 months. Assessment & Plan (10/29/2021 5:10 PM EST): Marina is a pleasant 71 yo female who recently developed diabetes mellitus. Etiology of diabetes remains uncertain with Hx of pancreatic irregularities and mother with T1DM, but requires metformin only at present with an A1C of 6.8% and steadily increasing FPG trend. Presently takes pancreatic enzymes before meals. Fasting sugars have steadily trended up over the last 2 months on moderate intensity metformin with significant lifestyle modifications. Question autoimmune vs secondary low insulin production vs insulin resistance or mix. Their is a high likelihood if she decides to have her pancreatic nodule biopsied that she will end up with insulin dependent diabetes. She is presently waiting for further recommendation by her proofsheet corrector at [facility]. Plan- Increase metformin to 1000 mg in the morning and continue 500 mg in the evening. Reviewed effects and actions of metformin as well as insulins (basal-bolus). Obtain SEAN-65 and C-peptide levels. Consider CGM in future as appropriate. Reviewed hypoglycemia prevention, recognition and management. Discussed recommendations and guidelines for a healthy diet with diabetes as well as importance of exercise. chemical educator referral provided. Encouraged to continue to make healthy diet choices and remain as physically active as tolerates. Encouraged to contact us with any concerns or question and follow up in 1 month. Other hyperlipidemia 10/29/2021 Assessment & Plan (02/18/2025 2:10 PM EDT): Continues on moderate intensity statin therapy Most recent lipid panel on file is from 2021, LDL was near optimal goal; this is up to date with PCP Diet continues to be healthy Assessment & Plan (08/01/2024 10:18 AM EST): Reviewed most recent lipid panel from 2021 LDL mildly above goal, goal with DM ideally <70 Continues on moderate intensity statin Assessment & Plan (05/11/2024 1:34 PM EDT): Continues on moderate intensity statin therapy Most recent lipid panel on file is from 2021, LDL was near optimal goal Diet is healthy Assessment & Plan (11/16/2023 5:56 PM EDT): Reviewed most recent lipid panel LDL above goal, goal with DM ideally <70 Continues on moderate intensity statin Assessment & Plan (09/22/2023 11:47 AM EST): LDL 84 with low intensity statin therapy Goal LDL 70 (optimal) - 100 Assessment & Plan (08/15/2023 9:46 PM EST): LDL 84 with low intensity statin therapy Goal LDL 70 (optimal) - 100 Assessment & Plan (06/15/2023 10:02 AM EDT): LDL 83 with low intensity statin therapy Goal LDL 70 (optimal) - 100 Assessment & Plan (05/19/2023 3:25 PM EDT): LDL 83 with low intensity statin therapy Goal LDL 70 (optimal) - 100 Assessment & Plan (01/12/2023 11:48 AM EDT): LDL 83 with low intensity statin therapy Goal LDL 70 (optimal) - 100 Assessment & Plan (10/18/2022 4:40 PM EST): LDL 83 with low intensity statin therapy Goal LDL 70 (optimal) - 100 Assessment & Plan (06/09/2022 8:58 PM EDT): LDL 83 with low intensity statin therapy Goal LDL 70 (optimal) - 100 Assessment & Plan (04/06/2022 4:16 PM EDT): Recent LDL 67 on low intensity statin therapy. Assessment & Plan (12/01/2021 4:02 PM EDT): Recent LDL 67 on low intensity statin therapy. Assessment & Plan (10/29/2021 5:00 PM EST): Recent LDL 67 on low intensity statin therapy. Secondary hypertension 10/28/2021 Assessment & Plan (02/18/2025 2:09 PM EDT): Blood pressure is in excellent range today, ideal goal is <130/80 Continues on regimen which includes ARB CV risks are elevated due to DM and smoking history Assessment & Plan (08/01/2024 10:18 AM EST): Blood pressure is borderline today BP Goal < 130/80 Continues on antihypertensive regimen that includes ARB Assessment & Plan (05/11/2024 1:31 PM EDT): Blood pressure is borderline today, ideal goal is <130/80 Continues on regimen which includes ARB CV risks are elevated due to DM and smoking history Assessment & Plan (11/16/2023 5:55 PM EDT): Blood pressure in good range today BP Goal < 130/80 Continues on antihypertensive regimen that includes ARB Assessment & Plan (09/22/2023 11:46 AM EST): Normotensive, 120/80 On ARB and occasional diuretics Has lost 6 lbs Assessment & Plan (08/15/2023 9:45 PM EST): Fairly good BP 128/86 Slightly elevated diastolic On ARB, CCB, and diuretics Assessment & Plan (06/15/2023 10:02 AM EDT): Fairly good BP 120/84 Slightly elevated diastolic On ARB and loop diuretic Presyncope and palpatation symptoms recently with heart monitor on today Assessment & Plan (05/19/2023 1:01 PM EDT): Blood pressure initially high today, 144/98, End of visit 128/59 On ARB and loop diuretic Feels dizzy when she initially stands up and with occasional fluttery chest Will be evaluated by cardiology next month with imaging and monitoring Assessment & Plan (01/12/2023 11:47 AM EDT): Well managed on CCB and ARB today. Encouraged heart healthy diet with gentle physical activity as tolerates. Assessment & Plan (10/18/2022 4:24 PM EST): Well managed on CCB and ARB today. Encouraged heart healthy diet with gentle physical activity as tolerates. Assessment & Plan (06/09/2022 8:56 PM EDT): Well managed on CCB and ARB today. Encouraged heart healthy diet with gentle physical activity as tolerates. Assessment & Plan (04/06/2022 4:08 PM EDT): Currently managed on CCB and ARB. Recently adjusted due to electrolyte imbalance with diuretics. Today's blood pressure 142/80. Plans to follow up with PCP this week. Assessment & Plan (12/01/2021 4:01 PM EDT): Slightly elevated blood pressure today. Continue ARB, CCB, and loop diuretic and monitor. Assessment & Plan (10/29/2021 4:41 PM EST): Well managed on ARB, CCB, and loop diuretic (indirectly). Encounters Date Type Department Care Team Description 02/18/2025 1:20 PM EDT Office Visit [facility] [address] [place] [address] [place] [address] Herminia Dumont MD Type 2 diabetes mellitus without complication, without long-term current use of insulin (Primary Dx); Secondary hypertension; Other hyperlipidemia 01/15/2025 Refill [facility] [address] [place] [address] [place] [address] Herminia Dumont MD Medication Refill from Last 3 Months Family History Medical History Relation Comments Cancer Father Kidney disease Mother Thyroid disease Mother Relation Status Comments Father Mother Social History Tobacco Use Types Packs/Day Years Used Date Smoking Tobacco: Every Day Cigarettes Passive Smoke Exposure: Current Smokeless Tobacco: Never Alcohol Use Standard Drinks/Week Comments Not Currently 0 (1 standard drink = 0.6 oz pur e alcohol) Education Answer Date Recorded Are you interested in more education? Not on katalina e 12/18/2022 Are you concerned about learning? Not on file 12/18/2022 No 12/18/2022 No 12/18/2022 Digital Access Answer Date Recorded No 01/12/2023 No 01/12/2023 Reliable internet access at home? Not on file 01/12/2023 Device with a working camera? Not on file Comments Unknown Sex and Gender Information Value Date Recorded Sex Assigned at Not on file Legal Sex Female 2:44 PM EST Gender Identity Not on file Sexual Orientation Not on file Last Filed Vital Signs Vital Sign Reading Time Taken Comments Blood Pressure 120/70 02/18/2025 1:19 PM EDT Pulse 80 02/18/2025 1:19 PM EDT Temperature 36.8 C (98.2 F) 05/11/2024 9:57 AM EDT Respiratory Rate - - Oxygen Saturation 95% 02/18/2025 1:19 PM EDT Inhaled Oxygen Concentration - - Weight 68.5 kg (151 lb) 02/18/2025 1:19 PM EDT Height 171.5 cm (5' 7.52 ) 02/18/2025 1:19 PM ED T Body Mass Index 23.29 02/18/2025 1:19 PM EDT Plan of Treatment Upcoming Encounters Date Type Department Care Team (Late st Contact Info) Description 07/09/2025 3:00 PM EST Nutrition [facility] [address] [place] [address] [place] [address] Sandra Tobias LDN [address] [place] [id number] 09/13/2025 9:40 AM EST Office Visit [facility] [address] [place] [address] [place] [address] Herminia Dumont MD [address] [address] Health Maintenance Due Date Last Done Comments POTASSIUM LEVEL 1952 DEPRESSION SCREENING 1964 SMOKING Hx and SMOKELESS TOBACCO SCREENING 1965 HEPATITIS C SCREENING 1970 MAMMOGRAM 1992 COLOGUARD 1997 COLONOSCOPY 1997 COLORECTAL CANCER SCREENING 1997 FIT TEST 1997 FOBT 1997 SIGMOIDOSCOPY 1997 VIRTUAL COLONOSCOPY 1997 OSTEOPOROSIS SCREENING INITIAL (ONE-TIME) 2017 DIABETIC EYE EXAM 10/28/2021 CREATININE LEVEL 06/14/2023 06/14/2022 COVID-19 VACCINE ( season) 2024 06/01/2021, 11/20/2020, 10/30/2020 BLOOD PRESSURE 08/20/2025 02/18/2025 HEMOGLOBIN A1C 08/20/2025 02/18/2025, 07/24, 05/11/2024, Additional history exists Adult Td,Tdap Booster 12/07/2029 12/08/2019 ZOSTER VACCINES Completed 05/25/2018, 0403/2018, 08/10/2014 PNEUMOCOCCAL VACCINES (50+ years) Completed 01/14/2022 RSV VACCINE Completed 07/12/2023 HEPATITIS A VACCINES Aged Out No long er eligible based on patient's age to complete this topic HIB VACCINES Aged Out No longer eligi ble based on patient's age to complete this topic MENINGOCOCCAL VACCINES (ACWY) Aged Out No longer eligible based on patient's age to complete this topic MENINGOCOCCAL VACCINES (B) Aged Out N o longer eligible based on patient's age to complete this topic Medical Devices Not on file Procedures Procedure Name Priority Date/Time Associated Diagnosis Comments POCT HEMOGLOBIN A1C Routine 02/18/2025 1 :38 PM EDT Type 2 diabetes mellitus without complication, without long-term current use of insulin COMPREHENSIVE METABOLIC PANEL Routine 06/14/2022 from Last 3 Months or Most Recently Relevant to Health Maintenance Results * (ABNORMAL) POCT Hemoglobin A1c (02/18/2025 1:38 PM EDT) Hemoglobin A1c 6.0(A) 4.2 - 5.6 % CADET [employer] [facility] Other 02/18/2025 1:38 PM EDT Herminia Dumont MD POINT OF CARE TEST ORDERABLES F inal Result [facility] [address] [place] [address], [facility] * Comprehensive metabolic panel (06/14/2022) us Ana [facility] BLOOD ORDERABLES Final Result from Last 3 Months or Most Recently Relevant to Health Maintenance Insurance [facility] Care Teams Occ Ther Relationship Specialty Start Date End Date Jocelin Atkins MD [address] [place] [id number] PCP - General Internal Medicine 10/21/21 Additional Source Comments The information contained in this document represents components of the legal health record. It is not the complete legal health record.[facility]
== END 2025-04-15 11:57 | disposition home or self-care (01) ==
LOC: HO.HMGAL 11:18
PROVIDERS: PCP Internal Medicine; Visit Provider Registered Nurse Emergency
DX: J30.89 Other allergic rhinitis (principal)
CPT/HCPCS: 95117; 95165

== ENCOUNTER 2025-04-29 14:24 | Outpatient (AMB) | payer OTHER, SELFPAY ==
--- OUTSIDE RECORDS SUMMARY | 2025-04-29 16:48 | XMS_ITS | Encounter Summary ---
Author Organization [facility] Address [address] [place] [address] Care Team Providers Care Certified Registered Nurse Anesthetist Name Role Phone Silverio Atkins MD Primary Care Provider [phone]- [phone] Encounter Details Date Type Department Care Team (Late st Contact Info) Description 04/04/2025 Lab Requisition [facility] - Main Lab [address] [place] [address] Dale Clements MD [address] [place] [address] Dysuria Social History Tobacco Use Types Packs/Day Years Used Date Smoking Tobacco: Every Day Cigarettes 0.5 15 Started: 05/07/2010 Smokeless Tobacco: Never Alcohol Use [...] Aerococcus urinae(A) SHAHID 04/07/2025 8:04 AM EDT [facility] Comment: Susceptibility testing not routinely performed. If further therapeutic information is required, please consult an infectious disease specialist. The organism value for this result has been updated. These results have been appended to the previously preliminary verified report. Other Urine specimen from urethra / Unknown 04/03/2025 04/04/2025 12:21 PM EDT Narrative [facility] - 04/07/2025 8:04 AM EDT Additional colony types present in insignificant amounts. us Dale Clements MD LAB MICROBIOLOGY - GENER AL ORDERABLES Final Result [facility] [address] [place] [address], documented in this encounter Visit Diagnoses Diagnosis Dysuria documented in this encounter Care Teams Certified Registered Nurse Anesthetist Relationship Specialty Start Date End Date Silverio Atkins MD [address] [place] [address] Rd [address] [place], [place] PCP - General Internal Medicine 01/02/18 documented as of this encounter
--- OUTSIDE RECORDS SUMMARY | 2025-04-29 16:48 | XMS_ITS | Patient Health Record ---
Author Organization [facility] Address [address] [place] [address] Care Team Providers Care Gm Name Role Phone Wilbert SIMPSON, Silverio Primary Care Provider Jennifer vailable Black, Hollie Unavailable [phone] Allergies Allergen (clinical drug ingredient) Drug/Non Drug Allergy documented on EMR Reaction Allergy Type Onset Date Status Shrimp Flavor Unknown Drug Allergy Act antonio Milk-related Compounds Unknown Drug Allergy Active Results Component Value Reference Range Notes HEMOGLOBIN A1C (GLYCOHEMOGLO BIN) Reviewed date:10/24/2024 11:14:01 [...] 1 CAPSULE BY MO UT EVERY DAY Oral; Duration: 90 Days Active [...] (L85.1 10/24/2024 Active Vitamin C Active Nystatin-Triamcinolone 535976-3.1 UNIT/GM APPLY DAILY TO SKIN TO AFFECTED [...] Vaccine Route Administration Date Status Comme nts Influenza Unknown 06/15/2023 Administered Influenza Unknown 06/05/2024 Administered COVID-19 Pfizer BioNTech Vaccine Unknown 06/01/2021 Adm inistered Social History Tobacco Use: Social History Observation [...] Polyneuropathy due to type 2 diabetes mellitus (185739791) Type 2 diabetes mellitus with diabetic polyneuropathy (E11.42) Active confirmed Vital Signs Blood pressure diastolic 82 mm Hg 01/25/2025 Height 5ft 8in in 01/25/2025 Blood pressure systolic 130 mm Hg 01/25/2025 Weight 155 lbs 01/25/2025 BMI 23.57 kg/m2 01/25/2025 Procedures Procedure Date Ordered Date Performed Result Body Sit e 21931-GWZSBZL NAIL, 6 OR MORE 10/24/2024 N/A 61092-LZTX SKIN LESIONS, 2 TO 4 10/24/2024 N/A 22925-YWLAXIC NAIL, 6 OR MORE 01/25/2025 N/A 41006-UPSW SKIN LESIONS, 2 TO 4 01/25/2025 N/A Encounters Encounter [facility] Date [facility] [address] 10/24/2024 Hollie Black Type 2 diabetes van itus with diabetic polyneuropathy E11.42 ; Tinea unguium B35.1 ; Other hammer toe(s) (acquired), right foot M20.41 ; Other hammer toe(s) (acquired), left foot M20.42 and Xerosis of skin L85.[address] [address] 01/25/2025 Hollie Black Type 2 diabetes van [...] 10/24/2024 Xerosis of skin (ICD-10 - L85.3) 01/25/2025 Other Plan Of Treatment Pending Test Test Name Order Date *Liver Function Test (LFT) 08/05/2022 37323-FVIOLFQ NAIL, 6 OR MORE 01/25/2025 63258-URZDTBM NAIL, 6 OR MORE 10/24/2024 99121-UGQKDTX NAIL, 6 OR MORE 11/24/2021 14475-NFBLCPY NAIL, 6 OR MORE 02/09/2022 84033-FQVJFCK NAIL, 6 OR MORE 04/20/2022 88969-DIEMJMY NAIL, 6 OR MORE 06/22/2022 47782-STQCWMS NAIL, 6 OR MORE 10/21/2023 53895-CUUTNGZ NAIL, 6 OR MORE 04/27/2024 90951-Fmwjzxet Plate 09/30/2023 74730-Rpetzbmw Plate Each Additional 04/2024 94125- Debride <25 sq cm 10/21/2023 32758- Debride <25 sq cm 04/20/2022 24734- Debride <25 sq cm 11/24/2021 14068-QRYZ SKIN LESIONS, 2 TO 4 11/25/19 22 07281-IYUB SKIN LESIONS, 2 TO 4 02/10/20 22 20292-HZHC SKIN LESIONS, 2 TO 4 04/20/20 22 12248-WSWS SKIN LESIONS, 2 TO 4 06/22/20 22 08647-FXDC SKIN LESIONS, 2 TO 4 10/21/19 24 91894-XSTA SKIN LESIONS, 2 TO 4 10/25/19 25 59884-QCAU SKIN LESIONS, 2 TO 4 04/27/20 24 96582-QTFT SKIN LESIONS, 2 TO 4 01/26/20 25 Next Appt Details Provider Name:Hollie Barksdale , 04/30/2025 10:15:00 AM, 1981 [facility], [place], [address], Insurance Providers Payer Name Payer Address Payer Phone Subscriber Number Group Number Insured Name Patient Relationship to Insured Coverage Start Date Coverage End Date [facility] [address] [place] [address] [id number] Marina Sprague Self - patient is the [...]
--- OUTSIDE RECORDS SUMMARY | 2025-04-29 16:48 | XMS_ITS | Clinical Summary ---
Author Organization [facility] [address] [facility] l[address] Address [address] [place] [address] Phone Care Team Providers Care Landfill Gas Technician Name Role Phone Silverio Atkins MD Primary Care Provider [phone] Allergies Active Allergy Reactions Criticality Noted Date [...] fracture 12/05/2017 Overview (07/24/2024): Slightly worse comparing 2018 scan to 2020 scan Only on Vit D and Ca Referral to endocrine placed Encounters Date Type Department Care Team Description 04/04/2025 Lab Requisition [facility] - Main Lab [address] [place] [address] Dale Clements MD Dysuria 03/14/2025 9:55 AM EDT - 03/14/2025 11:59 PM EDT Hospital Encounter Radiology Department - [address] [place] [address] Abnormal mammogram Discharge Disposition: Home or Self Care 03/14/2025 9:54 AM EDT - 03/14/2025 11:59 PM EDT Hospital Encounter Radiology Department - [address] [phone] Abnormal mammogram Discharge Disposition: Home or Self Care 02/25/2025 8:27 AM EDT - 02/25/2025 11:59 PM EDT Hospital Encounter Radiology Department - [address] [phone] Encounter for screening mammogram for breast cancer Discharge Disposition: Home or Self Care from Last 3 Months Immunizations Name Administration Dates Next Due Influenza trivalent, 0.5mL, preservative free (Fluarix; FluLaval; Fluzone) ages 6mo and older (Afluria) 3 years and older 05/07/2016 Surgical History Surgery Date Site/Laterality Comments OTHER SURGICAL HISTORY 11/02/06 PROCEDURE: HISTORICAL VULVA SURGERY; COMMENT: 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 OTHER SURGICAL HISTORY 06/28 PROCEDURE: ANKLE BRACE; COMMENT: left ankle broken SECTION PROCEDURE: IA DELIVERY ONLY; COMMENT: x2 TUBAL LIGATION PROCEDURE: HISTORICAL TUBAL LIGATION TONSILLECTOMY age 20 PROCEDURE: HISTORICAL TONSILLECTOMY APPENDECTOMY age 8 PROCEDURE: IA APPENDECTOMY Medical History Medical History Date Comments [...] Sexual Orientation Not on file Obstetrics History * This document contains information received from the source organization and may not represent a complete record from that organization. Para Term AB IAB SAB Ectopic Multiple Livin g Live Births 3 2 2 2 2 Date Outcome GA Total Labor Labor/2nd/3rd Weight Sex Type Anes PTL Pippa A1 A5 Name Clin 980 981 Term 41w 0d 3771 g (133 oz) F CS-Un spec Livin g Mandy Delivery Location:[facility] 983 Term 41w 0d 4082 g (144 oz) M CS-Un spec Livin g Kana Delivery Location:[facility] Last Filed Vital Signs Vital Sign Reading Time Taken Comments Blood Pressure 134/75 12/26/2024 3:12 PM EDT Pulse 80 12/26/2024 3:12 PM EDT Temperature - - Respiratory Rate - - Oxygen Saturation - - Inhaled Oxygen Concentration - - Weight 68.2 kg (150 lb 6.4 oz) 12/26/2024 3:12 P M EDT Height 175.3 cm (5' 9 ) 08/09/2023 11:23 AM EST Body Mass Index 22.21 08/09/2023 11:23 AM EST Plan of Treatment Health Maintenance Due Date Last Done Comments Diabetes: Annual GFR (Glomerular Filtration Rate) 1952 Diabetes: Annual Foot Exam 1962 Diabetes: Annual Retina Eye Exam 1962 Cholesterol Screening (Lipid Panel) 07/31/2022 Colorectal Cancer Screening: Colonoscopy 07/31/2022 Falls Risk Assessment 07/31/2022 Hepatitis C Screening 07/31/2022 Social Influencers of Health Screening 07/31/2022 Depression Screening 08/22/2024 Diabetes: Annual Urine Albumin-Creatinine Ratio (uACR) 12/27/2024 Hypertension/CHF/CAD Annual BMP Blood Test 12/27/2024 COVID-19 Vaccine ( season) 2025 06/01/2021, 11/20/2020, 10/30/2020 Influenza Vaccine (#1) 2025 4, 06/05/2024, 06/15/2023, Additional history exists Diabetes: Blood Sugar Control Test (HGBA1C) 08/20/2025 02/18/2025, 08/20/2024 Breast Cancer Screening 03/14/2027 03/14/20, 02/25/2025, 02/20/2024, Additional history exists DTaP,Tdap,and Td Vaccines (2 - Td or Tdap) 12/07/2029 12/08/2019 Osteoporosis Screening (Bone Density Screening) 11/17/2030 11/17/2020, 12/02/2017 Zoster Vaccines Completed 05/25/2018, 03/2018, 08/10/2014 Pneumococcal Vaccine: 50+ Years Completed 01/14/2022 RSV Immunization Adult Patients Completed 07/12/2023 HIB Vaccines Aged Out No longer eligi [...] age to complete this topic Meningococcal B Vaccine Aged Out No l onger eligible based on patient's age to complete this topic RSV Immunization Patients Under 20 months Aged Out No longer eligible based on patient's age to complete this topic Varicella Vaccines Aged Out No longer eligible based on patient's age to complete this topic Procedures Procedure Name Priority Date/Time Associated Diagnosis Comments BACTERIAL IDENTIFICATION AND SUSCEPTIBILITY, AEROBIC Routine 04/03/2025 12:00 AM EDT Dysuria US BREAST LIMITED RIGHT Routine 03/14/2025 10:26 AM EDT Abnormal mammogram MG MAMMO DIGITAL DIAGNOSTIC W BOGDAN RIGHT Routine 03/14/2025 10:03 AM EDT Abnormal mammogram MG MAMMO DIGITAL SCREENING W BOGDAN BILAT Routine 02/25/2025 8:43 AM EDT Encounter for screening mammogram for breast cancer DXA BONE DENSITY STUDY 1+ SITS AXIAL SKEL Routine 11/17/2020 4:07 PM EDT Encounter for gynecological examination (general) (routine) without abnormal findings from Last 3 Months or Most Recently Relevant to Health Maintenance Results * (ABNORMAL) Bacterial identification and susceptibility, aerobic (04/03/2025 12:00 AM EDT) Culture, Bacterial ID and Sensitivity Aerococcus urinae(A) SHAHID 04/07/2025 8:04 AM EDT [facility] Comment: Susceptibility testing not routinely performed. If further therapeutic information is required, please consult an infectious disease specialist. The organism value for this result has been updated. These results have been appended to the previously preliminary verified report. Other Urine specimen from urethra / Unknown 04/03/2025 04/04/2025 12:21 PM EDT Narrative [facility] - 04/07/2025 8:04 AM EDT Additional colony types present in insignificant amounts. us Dale Clements MD LAB MICROBIOLOGY - GENER AL ORDERABLES Final Result [facility] [address] [place] [address], * US Breast Limited Right (03/14/2025 10:26 AM EDT) Anatomical Region Laterality Modality Breast Right Ultrasound 03/14/2025 10:5 0 AM EDT Impressions 03/14/2025 10:53 AM EDT 1. No mammographic or sonographic evidence of malignancy in area of mammographic concern 2. Heterogeneously dense Findings and recommendations were conveyed to the patient. BI-RADS CATEGORY: 2 - BENIGN RECOMMENDATION: Return to annual mammography. Return to annual mammography. Mammo Location: [facility], [address] [place] [address], [id number], . -------- FINAL REPORT -------- Dictated By: Rahel Hutchins Dictated Date: 03/14/2025 10:50 ET Assigned Physician: Rahel Hutchins Reviewed and Electronically Signed By: Rahel Hutchins Signed Date: 03/14/2025 10:53 ET Workstation ID: [id number] Transcribed By: Self Edit Transcribed Date: 03/14/2025 10:50 ET Narrative 03/14/2025 10:53 AM EDT RIGHTDIGITAL DIAGNOSTIC 3D MAMMOGRAPHY HISTORY: Workup for retroareolar/periareolar focal asymmetry COMPARISON: Mammogram from 02/25/2025 Technique: CC and MLO spot compression 3-D FINDINGS: Right breast retroareolar/periareolar focal asymmetry becomes equal in density on spot compression and is consistent with benign summation of fibroglandular tissue. Sonographic evaluation demonstrates typically benign ductal ectasia. BREAST DENSITY: C - The breasts are heterogeneously dense which may obscure small masses. EXAM: RIGHT BREAST TARGETED ULTRASOUND EVALUATION HISTORY: Workup for retroareolar/periareolar focal asymmetry TECHNIQUE: Ultrasonographic examination is performed using a linear array transducer. Targeted right breast ultrasound from retroareolar/periareolar region to evaluate mammographic finding. Real-time sonographic scanning was also performed by the radiologist FINDINGS: In the retroareolar/periareolar breast, typically benign ductal ectasia is present to correspond to mammographic finding. No sonographic evidence of malignancy. Procedure Note Rahel Hutchins MD - 03/14/2025 RIGHTDIGITAL DIAGNOSTIC 3D MAMMOGRAPHY HISTORY: Workup for retroareolar/periareolar focal asymmetry COMPARISON: Mammogram from 02/25/2025 Technique: CC and MLO spot compression 3-D FINDINGS: Right breast retroareolar/periareolar focal asymmetry becomes equal indensity on spot compression and is consistent with benign summation offibroglandular tissue. Sonographic evaluation demonstrates typicallybenign ductal ectasia. BREAST DENSITY: C - The breasts are heterogeneously dense which mayobscure small masses. EXAM: RIGHT BREAST TARGETED ULTRASOUND EVALUATION HISTORY: Workup for retroareolar/periareolar focal asymmetry TECHNIQUE: Ultrasonographic examination is performed using a linear arraytransducer. Targeted right breast ultrasound from retroareolar/periareolarregion to evaluate mammographic finding. Real-time sonographic scanningwas also performed by the radiologist FINDINGS: In the retroareolar/periareolar breast, typically benign ductal ectasia ispresent to correspond to mammographic finding. No sonographic evidence ofmalignancy. IMPRESSION: 1. No mammographic or sonographic evidence of malignancy in area ofmammographic concern 2. Heterogeneously dense Findings and recommendations were conveyed to the patient. BI-RADS CATEGORY: 2 - BENIGN RECOMMENDATION: Return to annual mammography. Return to annual mammography. Mammo Location: [facility], [address] [place] [address], [id number], . -------- FINAL REPORT -------- Dictated By: Rahel Hutchins Dictated Date: 03/14/2025 10:50 ET Assigned Physician: Rahel Hutchins Reviewed and Electronically Signed By: Rahel Hutchins Signed Date: 03/14/2025 10:53 ET Workstation ID: [id number] Transcribed By: Self Edit Transcribed Date: 03/14/2025 10:50 ET us Jocelin Atkins MD IMG US PROCEDURES Final Res ult * MG Mammo Digital Diagnostic w Bogdan Right (03/14/2025 10:03 AM EDT) Anatomical Region Laterality Modality Breast Right Mammography 03/14/2025 10:5 0 AM EDT Impressions 03/14/2025 10:53 AM EDT 1. No mammographic or sonographic evidence of malignancy in area of mammographic concern 2. Heterogeneously dense Findings and recommendations were conveyed to the patient. BI-RADS CATEGORY: 2 - BENIGN RECOMMENDATION: Return to annual mammography. Return to annual mammography. Mammo Location: [facility], [address] [place] [address], [id number], . -------- FINAL REPORT -------- Dictated By: Rahel Hutchins Dictated Date: 03/14/2025 10:50 ET Assigned Physician: Rahel Hutchins Reviewed and Electronically Signed By: Rahel Hutchins Signed Date: 03/14/2025 10:53 ET Workstation ID: [id number] Transcribed By: Self Edit Transcribed Date: 03/14/2025 10:50 ET Narrative 03/14/2025 10:53 AM EDT RIGHTDIGITAL DIAGNOSTIC 3D MAMMOGRAPHY HISTORY: Workup for retroareolar/periareolar focal asymmetry COMPARISON: Mammogram from 02/25/2025 Technique: CC and MLO spot compression 3-D FINDINGS: Right breast retroareolar/periareolar focal asymmetry becomes equal in density on spot compression and is consistent with benign summation of fibroglandular tissue. Sonographic evaluation demonstrates typically benign ductal ectasia. BREAST DENSITY: C - The breasts are heterogeneously dense which may obscure small masses. EXAM: RIGHT BREAST TARGETED ULTRASOUND EVALUATION HISTORY: Workup for retroareolar/periareolar focal asymmetry TECHNIQUE: Ultrasonographic examination is performed using a linear array transducer. Targeted right breast ultrasound from retroareolar/periareolar region to evaluate mammographic finding. Real-time sonographic scanning was also performed by the radiologist FINDINGS: In the retroareolar/periareolar breast, typically benign ductal ectasia is present to correspond to mammographic finding. No sonographic evidence of malignancy. Procedure Note Rahel Hutchins MD - 03/14/2025 RIGHTDIGITAL DIAGNOSTIC 3D MAMMOGRAPHY HISTORY: Workup for retroareolar/periareolar focal asymmetry COMPARISON: Mammogram from 02/25/2025 Technique: CC and MLO spot compression 3-D FINDINGS: Right breast retroareolar/periareolar focal asymmetry becomes equal indensity on spot compression and is consistent with benign summation offibroglandular tissue. Sonographic evaluation demonstrates typicallybenign ductal ectasia. BREAST DENSITY: C - The breasts are heterogeneously dense which mayobscure small masses. EXAM: RIGHT BREAST TARGETED ULTRASOUND EVALUATION HISTORY: Workup for retroareolar/periareolar focal asymmetry TECHNIQUE: Ultrasonographic examination is performed using a linear arraytransducer. Targeted right breast ultrasound from retroareolar/periareolarregion to evaluate mammographic finding. Real-time sonographic scanningwas also performed by the radiologist FINDINGS: In the retroareolar/periareolar breast, typically benign ductal ectasia ispresent to correspond to mammographic finding. No sonographic evidence ofmalignancy. IMPRESSION: 1. No mammographic or sonographic evidence of malignancy in area ofmammographic concern 2. Heterogeneously dense Findings and recommendations were conveyed to the patient. BI-RADS CATEGORY: 2 - BENIGN RECOMMENDATION: Return to annual mammography. Return to annual mammography. Mammo Location: [facility], [address] [place] [address], [phone], . -------- FINAL REPORT -------- Dictated By: Rahel Hutchins Dictated Date: 03/14/2025 10:50 ET Assigned Physician: Rahel Hutchins Reviewed and Electronically Signed By: Rahel Hutchins Signed Date: 03/14/2025 10:53 ET Workstation ID: [id number] Transcribed By: Self Edit Transcribed Date: 03/14/2025 10:50 ET us Jocelin Atkins MD IMG BI PROCEDURES Final Res ult * (ABNORMAL) MG Mammo Digital Screening w Bogdan bilat (02/25/2025 8:43 AM EDT) Anatomical Region Laterality Modality Breast Bilateral Mammography Impressions 02/26/2025 2:50 PM EDT 1. Left: No mammographic evidence of malignancy 2. Right: Indeterminate periareolar/retroareolar focal asymmetry 3. Heterogeneous breast parenchyma BI-RADS CATEGORY: 0 - INCOMPLETE - NEED ADDITIONAL IMAGING EVALUATION RECOMMENDATION: Additional right breast imaging recommended. Right breast CC and MLO spot compression, targeted ultrasound Mammo Location: [facility], [address] [place] [address], [id number], . -------- FINAL REPORT -------- Dictated By: Rahel Hutchins Dictated Date: 02/26/2025 14:45 ET Assigned Physician: Rahel Hutchins Reviewed and Electronically Signed By: Rahel Hutchins Signed Date: 02/26/2025 14:50 ET Workstation ID: [id number] Transcribed By: Self Edit Transcribed Date: 02/26/2025 14:45 ET Narrative 02/26/2025 2:50 PM EDT A BILATERAL DIGITAL 3D SCREENING MAMMOGRAPHY HISTORY: Routine screening. No family history of breast cancer. COMPARISON: Multiple priors dating back to 01/21/2021 Technique: Bilateral full field digital mammography (3D) was performed using standard CC and MLO projections CAD was used to evaluate this mammogram. FINDINGS: Right: Indeterminate periareolar/retroareolar focal asymmetry Left: No suspicious masses, groups of microcalcification or areas of architectural distortion identified. Stable typically benign parenchymal asymmetries. BREAST DENSITY: C - The breasts are heterogeneously dense which may obscure small masses. us Jocelin Atkins MD IMG BI PROCEDURES Edited Re sult - Final * DXA BONE DENSITY STUDY 1+ SITS AXIAL SKEL (11/17/2020 4:07 PM EDT) Anatomical Region [...] 12/02/2017. 11.2% loss of lumbar spine bone mineral density and 6.7% loss of left hip bone mineral density, both statistically significant at the 95% confidence level. Lateral survey view of the thoracolumbar spine shows no significant change in the mild anterior wedge compression deformity of T12. IMPRESSION: IMPRESSION: Osteoporosis by WHO criteria. The [facility] Department of Internal Medicine recommends using National [...] screening schedule based on evette Mathews al., [facility] September 09, 2011 for patients with osteopenia [...] IMPRESSION: IMPRESSION: Osteoporosis by WHO criteria. The [facility] Department of Internal Medicine recommendsusing National Osteoporosis [...] alternative screening schedule based on marko Mathews., [facility] for patients with osteopenia (based on hip BMD T-score) is as follows: * advanced osteopenia (T scores -2.00 to -2.49), BMD testing every year * moderate osteopenia (T scores -1.50 to -1.99), BMD testing every 5years mild osteopenia or normal BMD (T scores -1.50 and higher), BMD testingevery 15 years Akanksha Man DO [facility] [place]XA PROCEDURES Final Resu lt from Last 3 Months or Most Recently Relevant to Health Maintenance Insurance MEDICARE [facility] [address] [place] [address] Care Teams Landfill Gas Technician Relationship Specialty Start Date End Date Silverio Atkins MD [address] [place], [place] PCP - General Internal Medicine 01/02/18
--- OUTSIDE RECORDS SUMMARY | 2025-04-29 16:48 | XMS_ITS | Clinical Summary ---
Author Organization [facility] Address [address] [address] Phone Care Team Providers Care Front Counter Clerk Name Role Phone Jocelin Atkins MD Primary [...] daily. 4 Active glucagon (BAQSIMI) 3 mg/actuation [place] 1 spray by Nasal route once as [...] last visit and since starting Trulicity. Her whitewasher gave his blessing to start GLP1 therapy [...] some leisurely swimming and hot sun in [place]. If Marina experiences any further daytime lows, [...] with meals. Marina will first ask her whitewasher if he feels this would be a [...] misses the pulmonary rehab exercise program through [facility]. Reviewed hypoglycemia prevention, recognition and management. Encouraged [...] what we discussed, but was told by pharmacy ancillary to not change. Reassured her that 1g [...] of different items. Encouraged her visit with conservation educator. No medications adjusted today. Reviewed hypoglycemia [...] presently waiting for further recommendation by her whitewasher at [facility]. Plan- Increase metformin to 1000 mg in the morning and continue 500 mg in the evening. Reviewed effects and actions of metformin as well as insulins (basal-bolus). Obtain SEAN-65 and C-peptide levels. Consider CGM in future as appropriate. Reviewed hypoglycemia prevention, recognition and management. Discussed recommendations and guidelines for a healthy diet with diabetes as well as importance of exercise. staff development educator referral provided. Encouraged to continue to [...] Description 02/18/2025 1:20 PM EDT Office Visit [facility] [address] [place] [address] [place] [address] Herminia Dumont MD Type 2 diabetes mellitus without complication, without long-term current use of insulin (Primary Dx); Secondary hypertension; Other hyperlipidemia from Last 3 Months Family History Medical [...] Info) Description 07/09/2025 3:00 PM EST Nutrition [facility] [address] [place] [phone] Sandra Tobias LDN [address] [place] [id number] 09/13/2025 9:40 AM EST Office Visit [facility] [address] [place] [address] [place] [address] Herminia Dumont MD [address] [place] [id number] Health Maintenance Due Date Last Done Comments POTASSIUM LEVEL 1952 DEPRESSION SCREENING 1964 SMOKING Hx and SMOKELESS TOBACCO SCREENING 1965 HEPATITIS C SCREENING 1970 MAMMOGRAM 1992 COLOGUARD 1997 COLONOSCOPY 1997 COLORECTAL CANCER SCREENING 1997 FIT TEST 1997 FOBT 1997 SIGMOIDOSCOPY 1997 VIRTUAL COLONOSCOPY 1997 OSTEOPOROSIS SCREENING INITIAL (ONE-TIME) 2017 DIABETIC EYE EXAM 10/28/2021 CREATININE LEVEL 06/14/2023 06/14/2022 INFLUENZA VACCINE (#1) 2025 4, 06/04/2023, 06/16/2022, Additional history exists COVID-19 VACCINE ( season) 2025 06/01/2021, 11/20/2020, 10/30/2020 BLOOD PRESSURE 08/20/2025 02/18/2025 HEMOGLOBIN A1C 08/20/2025 02/18/2025, 07/24, 05/11/2024, Additional history exists Adult Td,Tdap Booster 12/07/2029 12/08/2019 ZOSTER VACCINES Completed 05/25/2018, 04/0 03/2018, 08/10/2014 PNEUMOCOCCAL VACCINES (50+ years) Completed 01/14/2022 [...] Hemoglobin A1c 6.0(A) 4.2 - 5.6 % [facility] Other 02/18/2025 1:38 PM EDT us Herminia Dumont MD POINT OF CARE TEST ORDERABLES F inal Result [facility] [address] [place] [address], [facility] * Comprehensive metabolic panel (06/14/2022) [facility] BLOOD ORDERABLES Final Result from Last 3 Months or Most Recently Relevant to Health Maintenance Insurance [facility] Care Teams Front Counter Clerk Relationship Specialty Start Date End Date Jocelin Atkins MD [address] [place] [id number] PCP - General Internal Medicine 10/21/21 Additional Source Comments The information contained in this document represents components of the legal health record. It is not the complete legal health record.[facility]
== END 2025-04-29 14:25 | disposition home or self-care (01) ==
LOC: HO.HMGAL 14:24
PROVIDERS: PCP Internal Medicine; Visit Provider Registered Nurse Emergency
DX: J30.89 Other allergic rhinitis (principal)
CPT/HCPCS: 95117; 95165

== ENCOUNTER 2025-06-21 15:02 | Outpatient (REF) | payer OTHER, SELFPAY ==
--- NOTE | ~2025-06-21 | CT_ITS ---
EXAMINATION: CT LUNG SCREENING HISTORY: Z87.891 - Personal history of nicotine dependence TECHNIQUE: Low dose axial images were obtained from the sternal notch to upper abdomen without IV contrast per standard departmental protocol. Sagittal and coronal reformatted images were also obtained and reviewed. One or more of the following techniques was used for dose reduction: Automated exposure control, adjustment of the mA and/or kV according to patient size, use of iterative reconstruction technique. DLP: 44 mGy-cm COMPARISON: Previous chest CT scans most recent June 2024 FINDINGS: Lung nodules: Small calcified and noncalcified pulmonary nodules are stable. Largest nodules measure 3 mm in the left lower lobe axial image 127 and 290 series 5. No new or enlarging pulmonary nodules. Scarring or subsegmental atelectasis at the lung bases in the right middle and right lower lobes. Increased soft tissue against the left and dependent wall of the trachea. This appears mixed with air and probably represent patient's secretions. Central airways are otherwise clear. Emphysema: mild Coronary Calcification: mild Aortic Arch Calcification: mild Potentially Significant Incidentals : none Additional Chest Findings: Normal heart size. Small pericardial effusion similar to previous exams. No mediastinal or axillary lymphadenopathy is identified. Visualized upper abdomen: Calcifications in the pancreas suggestive of chronic pancreatitis. 5 cm cyst in the tail the pancreas unchanged. Small calcifications in the left kidney questionable for small stones. Cholecystectomy. T7 T8 T11 and T12 vertebral body compression fractures unchanged. Question compression fractures versus Schmorl's nodes of the L1 and L2 vertebral bodies unchanged. Degenerative changes of the spine and mild scoliosis. CT/CT lung screening IMPRESSION: Mild emphysema. Stable pulmonary nodules. No new or enlarging pulmonary nodule. Stable changes of chronic pancreatitis and 5 cm cyst in the tail of the pancreas. LUNG-RADS ASSESSMENT: Lung-RADS 2: Benign MANAGEMENT: Continue annual screening with LDCT in 12 months Category S: N/A Electronically signed by: Harmony Stubbs MD 06/21/2025 03:55 PM EDT
--- OUTSIDE RECORDS SUMMARY | 2025-06-21 15:22 | XMS_ITS | Clinical Summary ---
Author Organization [facility] Address [address] [address] Phone Care Team Providers Care Christmas Tree Grower Name Role Phone Jocelin Atkins MD Primary Care Provide r Allergies Active Allergy Reactions Criticality Noted Date Comments Crab Itching 10/28/2021 Penicillins 10/28/2021 Medications albuterol 90 mcg/actuation inhaler Inhale 2 puffs into the lungs 2 (two) times a day as needed. Active atorvastatin (LIPITOR) 10 MG tablet Take 10 mg by mouth daily. 11/28/19 21 Active buPROPion (WELLBUTRIN XL) 150 MG ER 24 hr tablet Take 150 mg by mouth daily. Active busPIRone (BUSPAR) 7.5 MG tablet Take 7.5 mg by mouth 2 (two) times a day as needed. 08/07/20 21 Active calcium carbonate (OS-RUBI) 1,250 mg (500 mg elemental) chewable tablet Take 500 mg by mouth daily. 04/06/20 21 Active celecoxib (CELEBREX) 200 MG capsule Take 200 mg by mouth 2 (two) times a day as needed. 09/23/19 22 Active TRELEGY ELLIPTA 200-62.5-25 mcg inhaler Inhale 1 puff into the lungs daily. 10/01/19 22 Active furosemide (LASIX) 20 MG tablet Take 20 mg by mouth daily. 1/2 tablet (10 mg) Active gabapentin (NEURONTIN) 300 MG capsule Take 300 mg by mouth 2 (two) times a day. Active hydrOXYzine (ATARAX) 25 MG tablet Take 25 mg by mouth 2 (two) times a day as needed. Active PANCREAZE 10,500-35,500- 61,500 unit CpDR capsule Take 10,500 units of lipase by mouth 3 (three) times a day. 10/21/19 22 Active meclizine (ANTIVERT) 12.5 mg tablet Take 12.5 mg by mouth 2 (two) times a day as needed. 10/25/19 22 Active montelukast (SINGULAIR) 10 mg tablet Take 10 mg by mouth daily. Active olmesartan (BENICAR) 20 mg tablet Take 20 mg by mouth daily. 08/05/20 21 Active omeprazole (PRILOSEC) 20 MG capsule Take 20 mg by mouth every morning. 10/13/19 22 Active omeprazole (PRILOSEC) 40 MG capsule Take 40 mg by mouth nightly at bedtime. Active traMADoL (ULTRAM) 50 mg tablet Take 50 mg by mouth 2 (two) times a day as needed. Active methocarbamoL (ROBAXIN) 500 MG tablet TAKE 1 TO 2 TABLETS BY MOUTH EVERY 8 HOURS NEEDED FOR SPASM*NOT TO BE USED WITH TIZANIDINE* 01/02/20 23 Active teriparatide (FORTEO) 20 mcg/dose (600mcg/2.4mL) PnIj Inject 20 mcg under the skin daily. 09/13/19 24 Active glucagon (BAQSIMI) 3 mg/actuation Alanson 1 spray by Nasal route once as needed. 2 each 2 09/22/19 24 Active metFORMIN (GLUCOPHAGE-XR) 500 MG 24 hr tabletIndicatio ns:Type 2 diabetes mellitus without complication, without long-term current use of insulin TAKE 2 TABS BEFORE DINNER AND 1 TAB BEFORE BREAKFAST. 270 tablet 4 04/05/20 24 Active TRULICITY 1.5 mg/0.5 mL subcutaneous injectionIndica tions:Type 2 diabetes mellitus without complication, without long-term current use of insulin INJECT 0.5 ML (1.5 MG TOTAL) UNDER THE SKIN EVERY 7 DAYS 2 mL 5 01/17/20 25 Active FREESTYLE LITE Strp stripsIndicatio ns:Type 2 diabetes mellitus without complication, without long-term current use of insulin TEST BLOOD SUGAR 2 (TWO) TIMES A DAY. 200 strip 3 06/10/20 25 Active FREESTYLE LITE Strp stripsIndicatio ns:Type 2 diabetes mellitus without complication, without long-term current use of insulin 1 each by Percutaneous route 2 (two) times a day. 200 strip 3 05/11/20 24 2024 Discontinued Active Problems Problem Noted Date Diagnosed Date [...] per CGM, this was reviewed with Marina Marina is interested in optimizing GLP1ra dosing, but [...] last visit and since starting Trulicity. Her kettle firer gave his blessing to start GLP1 therapy [...] some leisurely swimming and hot sun in [place]. If Marina experiences any further daytime lows, [...] with meals. Marina will first ask her kettle firer if he feels this would be a [...] Assessment & Plan (05/19/2023 3:24 PM EDT): Marina's A1c is excellent at 6.6%. He has [...] misses the pulmonary rehab exercise program through [facility]. Reviewed hypoglycemia prevention, recognition and management. Encouraged to continue to make healthy diet choices and remain as physically active as tolerates. Encouraged to contact us with any concerns or question and follow up in 2 weeks. Assessment & Plan (01/12/2023 11:58 AM EDT): Marina's average sugar is 209 which is reflective of her 2 week steroid taper earlier this month due to a severe sinusitis. Her sugars have trended down since stopping the Prednisone to 130s to 190s. Marina had changed her Metformin dosing to what we discussed, but was told by pharmacy technician program director to not change. Reassured her that 1g [...] of different items. Encouraged her visit with diabetes educator. No medications adjusted today. Reviewed hypoglycemia prevention, recognition and management. Encouraged to continue to make healthy diet choices and remain as physically active as tolerates. Encouraged to contact us with any concerns or question and follow up in 3 months. Assessment & Plan (06/09/2022 9:12 PM EDT): Mts A1c has increased since her last visit [...] presently waiting for further recommendation by her kettle firer at [facility]. Plan- Increase metformin to 1000 mg in the morning and continue 500 mg in the evening. Reviewed effects and actions of metformin as well as insulins (basal-bolus). Obtain SEAN-65 and C-peptide levels. Consider CGM in future as appropriate. Reviewed hypoglycemia prevention, recognition and management. Discussed recommendations and guidelines for a healthy diet with diabetes as well as importance of exercise. hematology nurse educator referral provided. Encouraged to continue to [...] Encounters Date Type Department Care Team Description 06/08/2025 Refill [facility] [address] [place] [address] [place] [address] Herminia Dumont MD Medication Refill from Last [...] Info) Description 07/09/2025 3:00 PM EST Nutrition [facility] [address] [place] [address] [place] [address] Sandra Tobias LDN [address] [place] [id number] 09/13/2025 9:40 AM EST Office Visit [facility] [address] [place] [address] [place] [address] Herminia Dumont MD [address] [place] [address] Health Maintenance Due Date Last Done Comments POTASSIUM LEVEL 1952 DEPRESSION SCREENING 1964 SMOKING Hx and SMOKELESS TOBACCO SCREENING 1965 HEPATITIS C SCREENING 1970 MAMMOGRAM 1992 COLOGUARD 1997 COLONOSCOPY 1997 COLORECTAL CANCER SCREENING 1997 FIT TEST 1997 FOBT 1997 SIGMOIDOSCOPY 1997 VIRTUAL COLONOSCOPY 1997 OSTEOPOROSIS SCREENING INITIAL (ONE-TIME) 2017 DIABETIC EYE EXAM 10/28/2021 CREATININE LEVEL 06/14/2023 06/14/2022 INFLUENZA VACCINE (#1) 2025 , 06/04/2023, 06/16/2022, Additional history exists COVID-19 VACCINE ( season) 2025 06/01/2021, 11/20/2020, 10/30/2020 BLOOD PRESSURE 08/20/2025 02/18/2025 HEMOGLOBIN A1C 08/20/2025 02/18/2025, 07/24, 05/11/2024, Additional history exists Adult Td,Tdap Booster 12/07/2029 12/08/2019 ZOSTER VACCINES Completed 05/25/2018, 03/2018, 08/10/2014 PNEUMOCOCCAL VACCINES (50+ years) Completed [...] Hemoglobin A1c 6.0(A) 4.2 - 5.6 % [facility] Other 02/18/2025 1:38 PM EDT us Herminia Dumont MD POINT OF CARE TEST ORDERABLES F inal Result [facility] [address] [place] [address], [facility] * Comprehensive metabolic panel (06/14/2022) us Ana [facility] BLOOD ORDERABLES Final Result from Last 3 Months or Most Recently Relevant to Health Maintenance [facility] Care Teams Christmas Tree Grower Relationship Specialty Start Date End Date Jocelin Atkins MD [address] [place] [address] [address] [place] [address] PCP - General Internal Medicine 10/21/21 Additional Source Comments The information contained in this document represents components of the legal health record. It is not the complete legal health record.[facility]
--- OUTSIDE RECORDS SUMMARY | 2025-06-21 15:22 | XMS_ITS | Patient Health Record ---
[facility] Organization [facility] Address [address] [place] [address] Care Team Providers Care Digital Hardware Design Engineer Name Role Phone Wilbert SIMPSON, Silverio Primary Care Provider Jennifer vailable Black, Hollie Unavailable [phone] Allergies Allergen (clinical drug ingredient) Drug/Non Drug Allergy documented on EMR Reaction Allergy Type Onset Date Status Shrimp Flavor Unknown Drug Allergy Act antonio Milk-related Compounds Unknown Drug Allergy Active Results Component Value Reference Range Notes HEMOGLOBIN A1C (GLYCOHEMOGLO BIN) Reviewed date:10/24/2024 11:14:01 AM Interpretation: Performing Lab: Notes/Report: HEMOGLOBIN A1C % (HH) 6.2 HEMOGLOBIN A1C (GLYCOHEMOGLO BIN) Reviewed date:05/23/2025 10:42:15 AM Interpretation: Performing Lab: Notes/Report: HEMOGLOBIN A1C % (HH) 6.5 Reason For Referral No Information Medications Medication SIG (Take, Route, Frequency, Duration) Notes Start Date End Date Status Atorvastatin Calcium Active Methocarbamol 500 MG Oral; Duration: 20 Days Active Trulicity 0.75 MG/0.5ML as directed Subcutaneous Active Teriparatide 600 MCG/2.4ML Subcutaneous; Duration: 28 Days Active Pancreaze Active Extra Depth Orthopedic Shoes (1 Pair) with Customized Heat Molded Multidensity Innersoles (3 Pair) as directed Dx: NIDDM/Polyneuropathy (E11.42), Hammertoe Foot Deformity (M20.41,M20.42), Preulcerative Skin Lesion(s) (L85.1 10/24/2024 Active metFORMIN HCl 500 MG 1 tablet with a brice l Orally Once a day Active oxyCODONE HCl 5 MG TAKE 1 TO 2 TABLETS BY MOUTH EVERY 6 HOURS NEEDED FOR PAIN *PER INS MAX 6 TABS/DAILY* Oral; Duration: 7 Days Not-Taking hydrOXYzine HCl 25 MG 1 tablet as needed Orally every 8 hrs Active Ammonium Lactate 12 % 1 application Exte rnally to affected areas of dry skin to feet except for between the toes Twice a day; Duration: 30 days Not-Takin g Vitamin C Active Nystatin-Triamcinolone 861556-6.1 UNIT/GM APPLY DAILY TO SKIN TO AFFECTED AREA TWICE A DAY FOR 2 WEEKS; Duration: 30 Not-Taking Vitamin B12 Active Ciclopirox Olamine 0.77 % APPLY TO AFFECTED AREA EXTERNALLY TO FEET TWICE A DAY 30 DAYS; Duration: 30 Not-Taking Vitamin D Active Doxycycline Not-Taki ng Gabapentin 300 MG 1 capsule before bed time Orally Once a day Active Terbinafine HCl 250 MG 1 tablet Orally O nce a day for 7 days days then stop for 3 weeks repeat cycle; Duration: 90 days 06/22/2022 Not-Wil ing Celecoxib Active Omeprazole 40 MG TAKE 1 CAPSULE BY [facility] EVERY DAY Oral; Duration: 90 Days Active Olmesartan Medoxomil Active Meclizine HCl 12.5 MG Oral; Duration: 5 Days Active Immunizations Vaccine Route Administration Date Status [...] Polyneuropathy due to type 2 diabetes mellitus (889790187) Type 2 diabetes mellitus with diabetic polyneuropathy (E11.42) Active confirmed Vital Signs Blood pressure diastolic 82 mm Hg 04/30/2025 Height 5ft 8in in 04/30/2025 Blood pressure systolic 130 mm Hg 04/30/2025 Weight 155 lbs 04/30/2025 BMI 23.57 kg/m2 04/30/2025 Procedures Procedure Date Ordered Date Performed Result Body Sit e 66791-EIAKDAL NAIL, 6 OR MORE 10/24/2024 N/A 12825-LKLM SKIN LESIONS, 2 TO 4 10/24/2024 N/A 77835-NPBOVLR NAIL, 6 OR MORE 01/25/2025 N/A 87805-SJYU SKIN LESIONS, 2 TO 4 01/25/2025 N/A 59548-KFYVSKK NAIL, 6 OR MORE 04/30/2025 N/A 78457-DXOO SKIN LESIONS, 2 TO 4 04/30/2025 N/A Encounters Encounter Location Date Provider Diagnosis [address] [address] 10/24/2024 Hollie Black Type 2 diabetes mellitus with diabetic polyneuropathy E11.42 ; Tinea unguium B35.1 ; Other hammer toe(s) (acquired), right foot M20.41 ; Other hammer toe(s) (acquired), left foot M20.42 and Xerosis of skin L85.[address] [address] 01/25/2025 Hollie Black Type 2 diabetes mellitus with diabetic polyneuropathy E11.42 and Tinea unguium B35.[address] [address] 04/30/2025 Hollie Black Type 2 diabetes mellitus with diabetic polyneuropathy E11.42 and Tinea unguium B35.1 [facility] [address] [place] [address] 05/26/2025 Hollie Black Assessments Encounter Date Diagnosis (ICD Code) Assessment Notes Treatment Notes Treatment Clinical Notes Section Notes 10/24/2024 Type 2 diabetes mellitus with diabetic polyneuropathy (ICD-10 - E11.42) 01/25/2025 Tinea unguium (ICD-10 - B35.1) 01/25/2025 Type 2 diabetes mellitus with diabetic polyneuropathy (ICD-10 - E11.42) 04/30/2025 Type 2 diabetes mellitus with diabetic polyneuropathy (ICD-10 - E11.42) 04/30/2025 Tinea unguium (ICD-10 - B35.1) 10/24/2024 Tinea unguium (ICD-10 - B35.1) 10/24/2024 Other hammer toe(s) (acquired), right foot (ICD-10 - M20.41) Patient Educated with: DIABETIC FOOT CARE INSTRUCTIONS. pdf (DIABETIC FOOT CARE INSTRUCTIONS. pdf) 10/24/2024 Other hammer toe(s) (acquired), left foot (ICD-10 - M20.42) 10/24/2024 Xerosis of skin (ICD-10 - L85.3) 01/25/2025 Other Plan Of Treatment Pending Test Test Name Order Date *Liver Function Test (LFT) 08/05/2022 65793-RQOVVQR NAIL, 6 OR MORE 04/30/2025 09621-FBJTUOU NAIL, 6 OR MORE 10/24/2024 53436-NEZJSHN NAIL, 6 OR MORE 01/25/2025 11391-LRQCCZT NAIL, 6 OR MORE 11/24/2021 01596-PCKLSBY NAIL, 6 OR MORE 02/09/2022 92396-GIGMRVO NAIL, 6 OR MORE 04/20/2022 30960-UUJVTEU NAIL, 6 OR MORE 06/22/2022 21114-MGAPBQS NAIL, 6 OR MORE 10/21/2023 03357-UGDGURS NAIL, 6 OR MORE 04/27/2024 41403-Eatkfgez Plate 09/30/2023 07106-Thuzadwr Plate Each Additional 04/2024 34583- Debride <25 sq cm 10/21/2023 92961- Debride <25 sq cm 04/20/2022 14393- Debride <25 sq cm 11/24/2021 16151-ZOQU SKIN LESIONS, 2 TO 4 11/25/19 22 99603-MMPI SKIN LESIONS, 2 TO 4 02/10/20 22 63724-TYQR SKIN LESIONS, 2 TO 4 04/20/20 22 47554-SQPV SKIN LESIONS, 2 TO 4 06/22/20 22 70375-IIMM SKIN LESIONS, 2 TO 4 10/21/19 24 87787-FXWN SKIN LESIONS, 2 TO 4 10/25/19 97407-GOAF SKIN LESIONS, 2 TO 4 04/27/20 24 88269-MDMI SKIN LESIONS, 2 TO 4 04/30/20 77378-LKXO SKIN LESIONS, 2 TO 4 01/26/20 Next Appt Details Provider Name:Hollie Barksdale , 08/07/2025 09:30:00 AM, [address], [place], [address], Insurance Providers Payer Name Payer Address Payer Phone Subscriber Number Group Number Insured Name Patient Relationship to Insured Coverage Start Date Coverage End Date [address] [place] [address] [id number] Marina Sprague Self - patient is the [...] Lam's neuroma appendix hard corn cataract surgery 02/13 Hospitalization History Reason Date(Month/Year) broke pelvic bone 09/15 Fractured hip 09/15 [facility], pneumonia 2023 [facility] bp issues 03/2023 [facility] low sodium, influenza 12/15/21
--- OUTSIDE RECORDS SUMMARY | 2025-06-21 15:22 | XMS_ITS | Clinical Summary ---
Author Organization [facility] [address] [facility] Address [address] [place] [address] Phone Care Team Providers Care Feed Mill Lab Technician Name Role Phone Silverio Atkins MD Primary Care Provider [phone]- [phone] Allergies Active Allergy Reactions Criticality Noted Date [...] Department Care Team Description 04/04/2025 Lab Requisition [facility] - Main Lab [address] [facility] [place] [address] Dale Clements MD Dysuria from Last 3 Months Immunizations Immunization Administration Dates Next Due Influenza trivalent, 0.5mL, preservative free (Fluarix; FluLaval; Fluzone) ages 6mo and older (Afluria) 3 years and older 05/07/2016 Surgical History Surgery Date Site/Laterality Comments OTHER SURGICAL HISTORY 11/02/06 PROCEDURE: HISTORICAL VULVA SURGERY; COMMENT: 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 OTHER SURGICAL HISTORY 06/28 PROCEDURE: ANKLE BRACE; COMMENT: left ankle broken SECTION PROCEDURE: [place] DELIVERY ONLY; COMMENT: x2 TUBAL LIGATION PROCEDURE: HISTORICAL TUBAL LIGATION TONSILLECTOMY age 20 PROCEDURE: HISTORICAL TONSILLECTOMY APPENDECTOMY age 8 PROCEDURE: [place] APPENDECTOMY Medical History Medical History Date Comments [...] Date Smoking Tobacco: Every Day Cigarettes 0.5 15.1 Started: 05/07/2010 Smokeless Tobacco: Never Alcohol Use [...] F CS-Un spec Livin g Mandy Delivery Location:[facility] 9[address] Term 41w 0d 4082 g (144 oz) M CS-Un spec Livin g Kana Delivery Location:[facility] Last Filed Vital Signs Vital Sign Reading [...] Health Maintenance Due Date Last Done Comments Colorectal Cancer Screening: Colonoscopy 1950 Diabetes: Annual GFR (Glomerular Filtration Rate) 1952 Diabetes: Annual Foot Exam 1962 Diabetes: Annual Retina Eye Exam 1962 Cholesterol Screening (Lipid Panel) 07/31/2022 Falls Risk Assessment 07/31/2022 Hepatitis C Screening 07/31/2022 Social Influencers of Health Screening 07/31/2022 Depression Screening 08/22/2024 Diabetes: Annual Urine Albumin-Creatinine Ratio (uACR) 12/27/2024 Hypertension/CHF/CAD Annual BMP Blood Test 12/27/2024 COVID-19 Vaccine ( season) 2025 06/01/2021, 11/20/2020, 10/30/2020 Influenza Vaccine (#1) 2025 , 06/05/2024, 06/15/2023, Additional history exists Diabetes: Blood Sugar Control Test (HGBA1C) 08/20/2025 02/18/2025, 08/20/2024 Breast Cancer Screening 03/14/2027 03/14/20, 02/25/2025, 02/20/2024, Additional history exists DTaP,Tdap,and Td Vaccines (2 - Td or Tdap) 12/07/2029 12/08/2019 Osteoporosis Screening (Bone Density Screening) 11/17/2030 11/17/2020, 12/02/2017 Zoster Vaccines Completed 05/25/2018, 04/0 03/2018, 08/10/2014 Pneumococcal Vaccine: 50+ Years Completed [...] AEROBIC Routine 04/03/2025 12:00 AM EDT Dysuria MG MAMMO DIGITAL DIAGNOSTIC W BOGDAN RIGHT Routine 03/14/2025 10:03 AM EDT Abnormal mammogram DXA BONE DENSITY STUDY 1+ SITS AXIAL SKEL Routine 11/17/2020 4:07 PM EDT Encounter for gynecological examination (general) (routine) without abnormal findings from Last 3 Months or Most Recently Relevant to Health Maintenance Results * (ABNORMAL) Bacterial identification and susceptibility, aerobic (04/03/2025 12:00 AM EDT) Culture, Bacterial ID and Sensitivity Aerococcus urinae(A) SHAHID 04/07/2025 8:04 AM EDT [facility] Comment: Susceptibility testing not routinely performed. If further therapeutic information is required, please consult an infectious disease specialist. The organism value for this result has been updated. These results have been appended to the previously preliminary verified report. Other Urine specimen from urethra / Unknown 04/03/2025 04/04/2025 12:21 PM EDT Narrative [facility] - 04/07/2025 8:04 AM EDT Additional colony types present in insignificant amounts. us Dale Clements MD LAB MICROBIOLOGY - GENER AL ORDERABLES Final Result [facility] ([facility] [[email or web address] [address] [place] [address], [place] [phone] * MG Mammo Digital Diagnostic w Bogdan [...] mammography. Return to annual mammography. Mammo Location: [facility], [address] [place] [address], [address], . -------- FINAL REPORT -------- Dictated By: Rahel Hutchins Dictated Date: 03/14/2025 10:50 ET Assigned Physician: Rahel Hutchins Reviewed and Electronically Signed By: Rahel Hutchins Signed Date: 03/14/2025 10:53 ET Workstation ID: [id number] Transcribed By: Self Edit Transcribed Date: 03/14/2025 [...] mammography. Return to annual mammography. Mammo Location: [facility], [address] [place] [address], [address], . -------- FINAL REPORT -------- Dictated By: Rahel Hutchins Dictated Date: 03/14/2025 10:50 ET Assigned Physician: Rahel Hutchins Reviewed and Electronically Signed By: Rahel Hutchins Signed Date: 03/14/2025 10:53 ET Workstation ID: [id number] Transcribed By: Self Edit Transcribed Date: 03/14/2025 10:50 ET us Jocelin Atkins MD IMG BI PROCEDURES Final Res ult * DXA BONE DENSITY STUDY 1+ SITS [...] IMPRESSION: IMPRESSION: Osteoporosis by WHO criteria. The [facility] Department of Internal Medicine recommends using [...] alternative screening schedule based on marko Mathews., NEJM September 09, 2011 for patients with osteopenia [...] IMPRESSION: IMPRESSION: Osteoporosis by WHO criteria. The [facility] Department of Internal Medicine recommendsusing National [...] alternative screening schedule based on marko Mathews., NEJMJanuary 2011 for patients with osteopenia (based [...] Recently Relevant to Health Maintenance Insurance MEDICARE [facility] [address] [place] [id number] Care Teams Feed Mill Lab Technician Relationship Specialty Start Date End Date Silverio Atkins MD [address] [place] Gonzalez PCP - General Internal Medicine 01/02/18
--- OUTSIDE RECORDS SUMMARY | 2025-06-21 15:22 | XMS_ITS | Encounter Summary ---
Author Organization [facility] Address [address] [place] [address] Care Team Providers Care Marking Room Supervisor Name Role Phone Silverio Atkins MD Primary Care Provider +1- [phone] Encounter Details Date Type Department Care Team (Late st Contact Info) Description 04/04/2025 Lab Requisition [facility] - Main Lab [address] [facility] [place] [address] Dale Clements MD [address] [place] [address] Dysuria Social History Tobacco Use Types Packs/Day [...] Aerococcus urinae(A) SHAHID 04/07/2025 8:[address] [facility] Comment: Susceptibility testing not routinely performed. If further therapeutic information is required, please consult an infectious disease specialist. The organism value for this result has been updated. These results have been appended to the previously preliminary verified report. Other Urine specimen from urethra / Unknown 04/03/2025 04/04/2025 12:[address] [facility] - 04/07/2025 8:04 AM EDT Additional colony types present in insignificant amounts. us Dale lCements MD LAB MICROBIOLOGY - GENER AL ORDERABLES Final Result [facility] [address] [place] [address], documented in this encounter Visit Diagnoses Diagnosis Dysuria documented in this encounter Care Teams Marking Room Supervisor Relationship Specialty Start Date End Date Silverio Atkins MD [address] [place] [address] Rd [address] [place], [place] PCP - General Internal Medicine 01/02/18 documented as of this encounter
== END 2025-06-21 15:03 | disposition home or self-care (01) ==
LOC: HO.CT 15:02
PROVIDERS: PCP Internal Medicine; Visit Provider Internal Medicine Pulmonary Disease
DX: Z12.2 Encounter for screening for malignant neoplasm of respiratory organs (principal); Z87.891 Personal history of nicotine dependence
CPT/HCPCS: 71271

== ENCOUNTER → 2025-06-21 15:04 | Outpatient (BNV) | payer OTHER, SELFPAY | PROVIDERS: PCP Internal Medicine; Visit Provider Radiology Diagnostic Radiology | DX: Z12.2 Encounter for screening for malignant neoplasm of respiratory organs (principal); Z87.891 Personal history of nicotine dependence; J43.9 Emphysema, unspecified; K86.1 Other chronic pancreatitis; K86.2 Cyst of pancreas | CPT/HCPCS: 71271 ==

== ENCOUNTER 2025-07-03 16:27 | Outpatient (AMB) | payer OTHER, SELFPAY ==
--- OUTSIDE RECORDS SUMMARY | 2025-07-03 19:04 | XMS_ITS | Patient Health Record ---
Author Organization [facility] Address [address] [place] [address] Care Team Providers Care Assistant Gm Of Content & Delivery Name Role Phone Wilbert SIMPSON, Silverio Primary Care Provider Jennifer vailable Black, Hollie Unavailable [phone] Allergies Allergen (clinical drug ingredient) Drug/Non Drug [...] days Not-Takin g Vitamin C Active Nystatin-Triamcinolone 343679-8.1 UNIT/GM APPLY DAILY TO SKIN TO AFFECTED [...] Omeprazole 40 MG TAKE 1 CAPSULE BY [facility] EVERY DAY Oral; Duration: 90 Days Active [...] Polyneuropathy due to type 2 diabetes mellitus (638498346) Type 2 diabetes mellitus with diabetic polyneuropathy (E11.42) Active confirmed Vital Signs Blood pressure diastolic 82 mm Hg 04/30/2025 Height 5ft 8in in 04/30/2025 Blood pressure systolic 130 mm Hg 04/30/2025 Weight 155 lbs 04/30/2025 BMI 23.57 kg/m2 04/30/2025 Procedures Procedure Date Ordered Date Performed Result Body Sit e 63772-RZEKPXP NAIL, 6 OR MORE 10/24/2024 N/A 27355-BZLL SKIN LESIONS, 2 TO 4 10/24/2024 N/A 18115-XEPKQPG NAIL, 6 OR MORE 01/25/2025 N/A 95262-ZGKR SKIN LESIONS, 2 TO 4 01/25/2025 N/A 02965-INJCEIV NAIL, 6 OR MORE 04/30/2025 N/A 18438-FNCI SKIN LESIONS, 2 TO 4 04/30/2025 N/A Encounters Encounter Location Date Provider Diagnosis [address] [address] 10/24/2024 Hollie Black Type 2 diabetes mellitus with diabetic polyneuropathy E11.42 ; Tinea unguium B35.1 ; Other hammer toe(s) (acquired), right foot M20.41 ; Other hammer toe(s) (acquired), left foot M20.42 and Xerosis of skin L85.[address] [address] 01/25/2025 Hollie Black Type 2 diabetes mellitus with diabetic polyneuropathy E11.42 and Tinea unguium B35.[address] [address] 04/30/2025 Hollie Black Type 2 diabetes mellitus with diabetic polyneuropathy E11.42 and Tinea unguium B35.1 [facility] [address] [place] [address] 05/26/2025 Hollie Black Assessments Encounter Date Diagnosis [...] Order Date *Liver Function Test (LFT) 08/05/2022 43236-AQGVUEN NAIL, 6 OR MORE 04/30/2025 15606-ZJSEIPO NAIL, 6 OR MORE 10/24/2024 23420-RCHQVDK NAIL, 6 OR MORE 01/25/2025 57834-AHCDCTV NAIL, 6 OR MORE 11/24/2021 02754-NLWIXUZ NAIL, 6 OR MORE 02/09/2022 75900-QCNUKWM NAIL, 6 OR MORE 04/20/2022 03846-JFPWOJM NAIL, 6 OR MORE 06/22/2022 71001-WZXBYMQ NAIL, 6 OR MORE 10/21/2023 95950-UIDUVEC NAIL, 6 OR MORE 04/27/2024 69183-Xdofrwxj Plate 09/30/2023 18549-Stsfqcxv Plate Each Additional 04/2024 94282- Debride <25 sq cm 10/21/2023 98348- Debride <25 sq cm 04/20/2022 05350- Debride <25 sq cm 11/24/2021 55096-DAKI SKIN LESIONS, 2 TO 4 11/25/19 22 56275-GPGV SKIN LESIONS, 2 TO 4 02/10/20 22 57542-OUSC SKIN LESIONS, 2 TO 4 04/20/20 22 49848-WNXF SKIN LESIONS, 2 TO 4 06/22/20 22 61894-SSNX SKIN LESIONS, 2 TO 4 10/21/19 24 95177-VIKA SKIN LESIONS, 2 TO 4 10/25/19 75010-JEXO SKIN LESIONS, 2 TO 4 04/27/20 24 29418-YZDM SKIN LESIONS, 2 TO 4 04/30/20 79714-HRRS SKIN LESIONS, 2 TO 4 01/26/20 Next Appt Details Provider Name:Hollie Barksdale , 08/07/2025 09:30:00 AM, [address], [place], [address], Insurance Providers Payer Name Payer Address Payer Phone Subscriber Number Group Number Insured Name Patient Relationship to Insured Coverage Start Date Coverage End Date [facility] [address] [place] [address] [id number] Marina Sprague Self - patient is the [...]
--- OUTSIDE RECORDS SUMMARY | 2025-07-03 19:04 | XMS_ITS | Encounter Summary ---
Author Organization [facility] Address [address] [place] [address] Care Team Providers Care Plumber Cub Name Role Phone Silverio Atkins MD Primary Care Provider +1- [phone] Encounter Details Date Type Department Care Team (Late st Contact Info) Description 04/04/2025 Lab Requisition [facility] - Main Lab [address] [place] [address] Dale Clements MD [address] [place] [address] Dysuria Social History Tobacco Use Types Packs/Day Years Used Date Smoking Tobacco: Every Day Cigarettes 0.5 15.2 Started: 05/07/2010 Smokeless Tobacco: Never Alcohol Use [...] Aerococcus urinae(A) SHAHID 04/07/2025 8:04 AM EDT [facility] Comment: Susceptibility testing not routinely performed. If further therapeutic information is required, please consult an infectious disease specialist. The organism value for this result has been updated. These results have been appended to the previously preliminary verified report. Other Urine specimen from urethra / Unknown 04/03/2025 04/04/2025 12:21 PM EDT Narrative [facility] - 04/07/2025 8:04 AM EDT Additional colony types present in insignificant amounts. us Dale Clements MD LAB MICROBIOLOGY - GENER AL ORDERABLES Final Result [facility] [address] [place] [address], documented in this encounter Visit Diagnoses Diagnosis Dysuria documented in this encounter Care Teams Plumber Cub Relationship Specialty Start Date End Date Silverio Atkins MD [address] [place] [address] Rd [address] [place], [place] PCP - General Internal Medicine 01/02/18 documented as of this encounter
--- OUTSIDE RECORDS SUMMARY | 2025-07-03 19:04 | XMS_ITS | Clinical Summary ---
Author Organization [facility] [address] Address [address] [place] [address] Phone Care Team Providers Care Magician/Illusionist Name Role Phone Silverio Atkins MD Primary Care Provider +1- [phone] Allergies Active Allergy Reactions Criticality Noted Date [...] Department Care Team Description 04/04/2025 Lab Requisition [facility] - Main Lab [address] [facility] [place] [address] Dale Clements MD Dysuria from [...] BRACE; COMMENT: left ankle broken SECTION PROCEDURE: NM DELIVERY ONLY; COMMENT: x2 TUBAL LIGATION PROCEDURE: HISTORICAL TUBAL LIGATION TONSILLECTOMY age 20 PROCEDURE: HISTORICAL TONSILLECTOMY APPENDECTOMY age 8 PROCEDURE: NM APPENDECTOMY Medical History Medical History Date Comments [...] F CS-Un spec Livin g Mandy Delivery Location:[facility] [address] 41w 0d 4082 g (144 oz) M CS-Un spec Livin g Kana Delivery Location:[facility] Last Filed Vital Signs Vital Sign Reading [...] Aerococcus urinae(A) SHAHID 04/07/2025 8:04 AM EDT [facility] Comment: Susceptibility testing not routinely performed. If further therapeutic information is required, please consult an infectious disease specialist. The organism value for this result has been updated. These results have been appended to the previously preliminary verified report. Other Urine specimen from urethra / Unknown 04/03/2025 04/04/2025 12:21 PM EDT Narrative [facility] - 04/07/2025 8:04 AM EDT Additional colony types present in insignificant amounts. us Dale Clements MD LAB MICROBIOLOGY - GENER AL ORDERABLES Final Result [facility] [address] [place] [address], [place] [phone] * MG Mammo Digital Diagnostic w Bogdan [...] mammography. Return to annual mammography. Mammo Location: [facility], [address] [place] [address], [address], . -------- FINAL REPORT -------- Dictated By: Rahel Hutchins Dictated Date: 03/14/2025 10:50 ET Assigned Physician: Rahel Hutchins Reviewed and Electronically Signed By: Rahel Hutchins Signed Date: 03/14/2025 10:53 ET Workstation ID: [id number] Transcribed By: Self Edit Transcribed Date: 03/14/2025 [...] mammography. Return to annual mammography. Mammo Location: [facility], [address] [place] [address], [address], . -------- FINAL REPORT -------- Dictated By: Rahel Hutchins Dictated Date: 03/14/2025 10:50 ET Assigned Physician: Rahel Hutchins Reviewed and Electronically Signed By: Rahel Hutchins Signed Date: 03/14/2025 10:53 ET Workstation ID: [id number] Transcribed By: Self Edit Transcribed Date: 03/14/2025 [...] IMPRESSION: IMPRESSION: Osteoporosis by WHO criteria. [facility] Department of Internal Medicine recommends using National [...] IMPRESSION: IMPRESSION: Osteoporosis by WHO criteria. [facility] Department of Internal Medicine recommendsusing National Osteoporosis [...] Recently Relevant to Health Maintenance Insurance [employer] [facility] [address] [id number] Care Teams Magician/Illusionist Relationship Specialty Start Date End Date Silverio Atkins MD [address] [place] PCP - General Internal Medicine 01/02/18
--- OUTSIDE RECORDS SUMMARY | 2025-07-03 19:04 | XMS_ITS | Clinical Summary ---
Author Organization [facility] Address [address] [address] Phone Care Team Providers Care Set Builder Name Role Phone Jocelin Atkins MD Primary [...] 09/13/19 24 Active glucagon (BAQSIMI) 3 mg/actuation [place] 1 spray by Nasal route once as needed. 2 each 2 09/22/19 24 Active metFORMIN (GLUCOPHAGE-XR) 500 MG 24 hr tabletIndicatio ns:Type 2 diabetes mellitus without complication, without long-term current use of insulin TAKE 2 TABS BEFORE DINNER AND 1 TAB BEFORE BREAKFAST. 270 tablet 4 04/05/20 24 Active FREESTYLE LITE Strp stripsIndicatio ns:Type 2 diabetes mellitus without complication, without long-term current use of insulin TEST BLOOD SUGAR 2 (TWO) TIMES A DAY. 200 strip 3 06/10/20 25 Active TRULICITY 1.5 mg/0.5 mL subcutaneous injectionIndica tions:Type 2 diabetes mellitus without complication, without long-term current use of insulin INJECT 0.5 ML (1.5 MG TOTAL) UNDER THE SKIN EVERY 7 DAYS 2 mL 5 06/24/20 25 Active FREESTYLE LITE Strp stripsIndicatio ns:Type 2 diabetes mellitus without complication, without long-term current use of insulin 1 each by Percutaneous route 2 (two) times a day. 200 strip 3 05/11/20 24 2024 Discontinued TRULICITY 1.5 mg/0.5 mL subcutaneous injectionIndica tions:Type 2 diabetes mellitus without complication, without long-term current use of insulin INJECT 0.5 ML (1.5 MG TOTAL) UNDER THE SKIN EVERY 7 DAYS 2 mL 5 01/17/20 25 2024 Discontinued Active Problems Problem Noted Date [...] last visit and since starting Trulicity. Her apparel fashion designer gave his blessing to start GLP1 therapy [...] some leisurely swimming and hot sun in [place]. If Marina experiences any further daytime lows, [...] with meals. Marina will first ask her apparel fashion designer if he feels this would be a [...] Assessment & Plan (05/19/2023 3:24 PM EDT): Marnia's A1c is excellent at 6.6%. He has [...] misses the pulmonary rehab exercise program through [facility]. Reviewed hypoglycemia prevention, recognition and management. Encouraged [...] we discussed, but was told by pharmacy aide to not change. Reassured her that 1g [...] of different items. Encouraged her visit with clinical educator. No medications adjusted today. Reviewed hypoglycemia [...] presently waiting for further recommendation by her apparel fashion designer at [facility]. Plan- Increase metformin to 1000 mg in the morning and continue 500 mg in the evening. Reviewed effects and actions of metformin as well as insulins (basal-bolus). Obtain SEAN-65 and C-peptide levels. Consider CGM in future as appropriate. Reviewed hypoglycemia prevention, recognition and management. Discussed recommendations and guidelines for a healthy diet with diabetes as well as importance of exercise. clinical educator referral provided. Encouraged to continue to [...] Encounters Date Type Department Care Team Description 06/21/2025 Refill [facility] [address] [place] [address] Herminia Dumont MD Medication Refill 06/08/2025 Refill [facility] [address] [place] [address] Herminia Dumont MD Medication Refill from Last [...] Info) Description 07/09/2025 3:00 PM EST Nutrition [facility] [address] [place] [address] Sandra Tobias LDN [address] [facility] [place] [address] 09/13/2025 9:40 AM EST Office Visit [facility] [address] [place] [address] Herminia Dumont MD [address] [facility] [address] [place] [address] [email or web address] Maintenance Due Date Last Done Comments [...] 06/04/2023, 06/16/2022, Additional history exists COVID-19 VACCINE (2024- season) 2025 06/01/2021, 11/20/2020, 10/30/2020 BLOOD PRESSURE 08/20/2025 02/18/2025 HEMOGLOBIN A1C 08/20/2025 02/18/2025, 07/24, 05/11/2024, Additional history exists Adult Td,Tdap Booster 12/07/2029 12/08/2019 ZOSTER VACCINES Completed 05/25/2018, 040 03/2018, 08/10/2014 PNEUMOCOCCAL VACCINES (50+ years) Completed 01/14/2022 RSV VACCINE Completed 07/12/2023 HEPATITIS A VACCINES Aged Out No long er eligible based on patient's age to complete this topic HIB VACCINES Aged Out No longer eligi ble based on patient's age to complete this topic IPV VACCINES Aged Out No longer eligi ble [...] current use of insulin COMPREHENSIVE METABOLIC PANEL (CMP) Routine 06/14/2022 from Last 3 Months or Most Recently Relevant to Health Maintenance Results * (ABNORMAL) POCT Hemoglobin A1c (02/18/2025 1:38 PM EDT) Hemoglobin A1c 6.0(A) 4.2 - 5.6 % [facility] Other 02/18/2025 1:38 PM EDT us Herminia Dumont MD LAB POCT ENTER/EDIT ORDERABLES Final Result [employer] [facility] [address] [place] [address], [facility] * Comprehensive metabolic panel (06/14/2022) us Ana SAMUELS LAB BLOOD BKR ORDERABLES Fi nal Result from Last 3 Months or Most Recently Relevant to Health Maintenance Insurance [facility] [place] [address] [facility] HMO Care Teams Set Builder Relationship Specialty Start Date End Date Jocelin Atkins MD [address] [place] [address] [place] [address] PCP - General Internal Medicine 10/21/21 Additional Source Comments The information contained in this document represents components of the legal health record. It is not the complete legal health record.[facility]
== END 2025-07-03 16:27 | disposition home or self-care (01) ==
LOC: HO.HMGAL 16:27
PROVIDERS: PCP Internal Medicine; Visit Provider Registered Nurse Emergency
DX: J30.89 Other allergic rhinitis (principal)
CPT/HCPCS: 95117; 95165

== ENCOUNTER 2025-07-10 13:47 | Outpatient (AMB) | payer OTHER, SELFPAY ==
--- OUTSIDE RECORDS SUMMARY | 2025-07-09 15:00 | XMS_ITS | Encounter Summary ---
Author Organization [facility] Address [address] [address] Phone Care Team Providers Care Bed Setter Name Role Phone Jocelin Atkins MD Primary Care Provide r Reason for Visit * Reason Comments Type 2 Diabetes Encounter Details Date Type Department Care Team (Late st Contact Info) Description 07/09/2025 3:00 PM EST Nutrition [facility] [address] [place] [address] Sandra Tobias, GENE 22 [facility], 1[address] [place] [address] [email or web address] Type 2 diabetes mellitus without complication, without long-term current use of insulin (Primary Dx) Social History Tobacco Use Types Packs/Day Years [...] on file documented as of this encounter Last Filed Vital Signs Vital Sign Reading Time Taken Comments Blood Pressure - - Pulse - - Temperature - - Respiratory Rate - - Oxygen Saturation - - Inhaled Oxygen Concentration - - Weight 69.9 kg (154 lb) 07/09/2025 3:10 PM EST Height - - Body Mass Index 23.75 02/18/2025 1:19 PM EDT documented in this encounter Patient Instructions * Patient Instructions* Sandra Tobias LDN - 07/09/2025 3:00 PM EST Recommendations/Plan: Your A1c was 5.8% Diabetes Medications: Continue current medication per Dr. Dumont Monitoring blood sugar: Continue to check your blood sugar at home Physical activity: Continue to try and find ways to stay active throughout the day Nutrition: Include protein with each meal (ex: meat/chicken/fish, eggs, nuts/nut butter/seeds, low fat dairy etc.) Continue to include vegetables with your meals Recommend Appointment with: Senior Billing Consultant/PATTERNMAKER GRADER Please bring your blood sugar meter and any written food or blood sugar logs to every appointment. Follow up: With Dr. Dumont 09/13/25 at 9:40 am Calling sooner as needed documented in this encounter Progress Notes * Sandra Tobias LDN - 07/09/2025 3:00 PM EST Images from the original note were not included. Diabetes Education Program Status: Completed, being provided ongoing support applying education/knowledge to self-management of diabetes Referring provider: Jocelin Atkins Has previously met with a conservation educator: yes New patient form completed and scanned into EMR: not applicable Marina seen in office today for review of diabetes self-management and glucose control. Last seen by Maria Guadalupe Young NP 02/18/25. Today Marina reports things have been going well on Trulicity. Blood sugar control remains good. Health History/Diabetes Pathophysiology Problem list/health history reviewed: yes Type of diabetes: Diabetes mellitus Type 2 Patient aware of diagnosis and able to state type of diabetes: yes Diagnosed approximately: 2021 Identifies type of diabetes, basic pathophysiology of their diabetes, and components of treatment plan.[Diabetes Pathophysiology and Treatment] Comprehends rosen points, Reinforcement given Instruction/education/reinforcement topics today included: pathophysiology of diabetes, components of treatment plan Taking Medications Safely and Effectively Diabetes Medications: Reviewed with Marina today Diabetes medications managed by: Maria Guadalupe Ely NP Missing medication doses: No Medication type, amount, frequency/timing: Metformin xr 500mg in am and 1000mg in pm, Trulicity 1.5 mg weekly on Repaglinide rarely Able to state diabetes related medication(s) and dose(s). Able to report method of action and potential common side effects. Able to evaluate effectiveness of their medication(s). Using safely without missing doses. [Taking Medications] Comprehends rosen points, Reinforcement given Able to report correct procedures for: dosing and injecting insulin (or taking via patch or pump), care/storage of insulin, injection sites/rotation, insulin timing, disposal of sharps. [Taking Medications] Not applicable Instruction/education/reinforcement topics today included: medication method(s) of action Prevent, Detect, and Treat; Acute and Chronic Complications Complications related to patient's diabetes: No Patient reports recent illness or injury: No Hypoglycemia Is patient considered at risk for hypoglycemia: yes Does patient... feel they are having issues with hypoglycemia lately: no know the symptoms of low blood sugar reactions: yes confirm glucose with BG meter or CGM when feels low: yes have episodes when hypoglycemic unaware/asymptomatic: no carry something to treat low blood sugar: yes have glucagon if at risk for severe low blood sugar: yes Hyperglycemia Does patient... feel they are having issue with frequent hyperglycemia: no know what to do if blood sugar is running high: yes Preventative Care (Patient Reported) At least yearly visit with primary care: yes At least yearly eye exam: yes. Date of last: yes had cataract surgery in summer and an eye exam nowgoing every 6 months Getting routine dental care: yes Getting recommended vaccines in conjunction with PCP or local pharmacy: partially, reviewed today Foot care Patient having any issues with self-foot care and nail clipping: No Doing daily foot checks: yes Seeing a rac specialist: yes has prescription for shoes Patient able to report sick day plan and/or aware of potential impact of illness on blood sugars: no Identifies acute and chronic risks of diabetes. Identifies ways to prevent, detect, and treat acuteand chronic complications. Able to list potential symptoms of hyper/hypoglycemia (as relevant). Able to describe actions for lowering high blood sugar levels and how to treat low blood sugar (as relevant). Able to identify sick day and/or back up plan. Understands importance of pre- planning (as relevant) [Acute Complications, Chronic Complications] Comprehends rosen points, Reinforcement given Instruction/education/reinforcement topics today included: potential symptoms of hyperglycemia, potential symptoms of hypoglycemia, what to do when blood sugar low Incorporating Healthy Eating Patient Reported Nutrition: Food allergies/intolerances/avoidances/cultural practices: Yes. On Pancreaze, chooses dairy free milk, low gluten Current issues with n/v/d/c/gastroparesis: No Recent change in weight?: stable Appetite: good, 3 meals Snacks: things like carrots and fruit Sweets: feels like this has been better compared to past Beverages: coffee or water, cold brew with cold foam Food Recall: B: today had a donut L: yesterday had soup D: last night had chicken, and broccoli and grapes Able to describe impact of amount, type, and timing of food on glucose levels. Able to identify personal influences, obstacles, and solutions to incorporating balanced meal plan into lifestyle. [Healthy Eating] Comprehends rosen points, Reinforcement given Instruction/education/reinforcement topics today included: meal planning Incorporating Being Active Hard to get into a routine Is active with grandkids Limitations: Yes. Pain, goes to PT once a week once every other week Experiencing hypoglycemia with exercise: no Able to state impact of physical activity on blood glucose levels. Verbalizes need for exercise andprecautions to take. Able to incorporate being active into lifestyle. [Being Active] Comprehends rosen points, Reinforcement given Instruction/education/reinforcement topics today included: risk of hypoglycemia with physical activity, how to prevent and react to hypoglycemia with physical activity Monitoring Glucose Interpreting Health Data for Self-Management Decision Making and Problem Solving LABS: POC A1c checked today and 5.8% indicating overall great control [it as been at least 3 monthsfrom last A1c] Lab Results Component Value Date LZOJ7BDRE 5.8 (*) 07/09/2025 WGHH1BDNT 6.0 (*) 02/18/2025 GKPZ4THAZ 6.1 (*) 08/20/2024 GHBA1C 7.5 (H) 08/11/2023 GHBA1C 7.4 06/02/2022 No results found for: GLU Lab Results Component Value Date CHOL 174 06/02/2022 HDL 84 (*) 06/02/2022 LDL 83 06/02/2022 No results found for: GFRAA , GFR No results found for: MICROALBUR , HRKT77KVU , MALBCRE , GRMALB BP Readings from Last 3 Encounters: 02/18/25 120/70 07/31/24 134/78 05/11/24 138/80 Weights 07/09/25 1510 69.9 kg (154 lb) Nutrition on 07/09/2025 02/18/25 1319 68.5 kg (151 lb) Office Visit on 02/18/2025 08/20/24 1016 72.6 kg (160 lb) Nutrition on 08/20/2024 07/31/24 1059 72.7 kg (160 lb 3.2 oz) Office Visit on 07/31/2024 05/11/24 0957 72.1 kg (159 lb) Office Visit on 05/11/2024 11/16/23 1142 73.5 kg (162 lb) Office Visit on 11/16/2023 11/08/23 1109 74 kg (163 lb 3.2 oz) Nutrition on 11/08/2023 09/22/23 1011 72.9 kg (160 lb 12.8 oz) Office Visit on 09/22/2023 08/11/23 1305 75.3 kg (166 lb) Office Visit on 08/11/2023 06/09/23 1314 74.7 kg (164 lb 9.6 oz) Office Visit on 06/09/2023 Estimated body mass index is 23.75 kg/m?? as calculated from the following: Height as of 02/18/25: 171.5 cm (5' 7.52 ). Weight as of this encounter: 69.9 kg (154 lb). Blood Glucose Meter/CGM Download: Overall good control. Not having lows. Not taking prandin often Demonstrates ability to monitor blood glucose and knows how to use results (via glucometer, CGM, and/or labs as relevant). Identifies recommended blood glucose/A1c targets and personal targets. [Monitoring Glucose] Demonstrates understanding/competency Instruction/education/reinforcement topics today included: none needed Lifestyle for Healthy Coping, Recognizing Diabetes Distress and Support Options Reports feeling stressed: yes Reports stress surrounding diabetes diagnosis or management: No Patient able to identify support network and/or stress management techniques they find helpful: yes Sleep: sleeping ok Sleep apnea: no; Using CPAP consistently: not applicable DSMES Support Plan (accessible community or personal resource utilized between visits): meditation Able to recognize diabetes related distress and support options. Able to identify coping and stressmanagement skills and adapt to lifestyle. [Lifestyle and Healthy Coping, Diabetes Distress, SupportOptions] Comprehends rosen points, Reinforcement given Instruction/education/reinforcement topics today included: strategies for coping with stress Functional Health Literacy and Numeracy Able to demonstrate functional health literacy and numeracy regarding diabetes [e.g., able to understand and interpret glucose targets, A1C target, carb awareness, carb counting, carb choices etc. asrelevant. [Health Literacy and Numeracy] Comprehends rosen points, Reinforcement given Problem Solving and Behavioral Changes Patient Selected Behavioral Goal(s) and SMART action plan(s) Can state diabetes self-management treatment goals and strategies to reach goals. At least 1 patient-selected behavior goal with SMART action plan created/evaluated in flowsheets. Comprehends rosen points, Reinforcement given yes Patient selected Behavioral Objectives/Goals are identified separately in the Documentation Flowsheets Activity using the flowsheet Diabetes Education Behavioral Objectives in order to be easily accessible in one aggregated location and comparable across time. Education plan based on patient's individual concerns and needs. Education plan reviewed with patient and patient agreeable to plan. Will continue to monitor/reassess together at each visit. Potential barriers: None known Instruction method: Individual Education Plan: Individual Follow-Up Written Materials Provided: N/A Patient Demonstrated: good understanding through teach back Recommendations/Plan: Your A1c was 5.8% Diabetes Medications: Continue current medication per Dr. Dumont Monitoring blood sugar: Continue to check your blood sugar at home Physical activity: Continue to try and find ways to stay active throughout the day Nutrition: Include protein with each meal (ex: meat/chicken/fish, eggs, nuts/nut butter/seeds, low fat dairy etc.) Continue to include vegetables with your meals Recommend Appointment with: Senior Billing Consultant/PATTERNMAKER GRADER Please bring your blood sugar meter and any written food or blood sugar logs to every appointment. Follow up: With Dr. Dumont 09/13/25 at 9:40 am Calling sooner as needed Time spent with Patient: 30 minutes. See scanned document. Visit Type: EXT-C documented in this encounter Plan of Treatment Upcoming Encounters Date Type Department Care Team (Late st Contact Info) Description 09/13/2025 9:40 AM EST Office Visit [facility] [address] [place] [address] Herminia Dumont MD [address] [place] [address], [address] [place] [address] [email or web address] documented as of this encounter Procedures Procedure Name Priority Date/Time Associated Diagnosis Comments POCT HEMOGLOBIN A1C Routine 07/09/2025 3 :32 PM EST Type 2 diabetes mellitus without complication, without long-term current use of insulin documented in this encounter Results * (ABNORMAL) POCT Hemoglobin A1c (Enter/Edit) (07/09/2025 3:32 PM EST) Hemoglobin A1c 5.8(A) 4.2 - 5.6 % [facility] 07/09/2025 3:32 PM EST us Herminia Dumont MD LAB POCT ENTER/EDIT ORDERABLES Final Result [facility] [address] [place] [address], [facility] documented in this encounter Visit Diagnoses Diagnosis Type 2 diabetes mellitus without complication, without long-term current use of insulin- Primary documented in this encounter Care Teams Bed Setter Relationship Specialty Start Date End Date Jocelin Atkins MD [address] [place] [address] [address] [place] [address] PCP - General Internal Medicine 10/21/21 documented as of this encounter Additional Source Comments The information contained in this document represents components of the legal health record. It is not the complete legal health record.[facility]
--- OUTSIDE RECORDS SUMMARY | 2025-07-11 01:53 | XMS_ITS | Patient Health Record ---
Author Organization [facility] Address [address] [facility] [place] [address] Care Team Providers Care Video Game Repair Technician Name Role Phone Wilbert SIMPSON, Silverio Primary Care Provider Jennifer vailable Black, Hollie Unavailable [phone] Allergies Allergen (clinical drug ingredient) Drug/Non Drug [...] days Not-Takin g Vitamin C Active Nystatin-Triamcinolone 775706-6.1 UNIT/GM APPLY DAILY TO SKIN TO AFFECTED [...] Omeprazole 40 MG TAKE 1 CAPSULE BY [facility] EVERY DAY Oral; Duration: 90 Days Active [...] Polyneuropathy due to type 2 diabetes mellitus (618013253) Type 2 diabetes mellitus with diabetic polyneuropathy (E11.42) Active confirmed Vital Signs Blood pressure diastolic 82 mm Hg 04/30/2025 Height 5ft 8in in 04/30/2025 Blood pressure systolic 130 mm Hg 04/30/2025 Weight 155 lbs 04/30/2025 BMI 23.57 kg/m2 04/30/2025 Procedures Procedure Date Ordered Date Performed Result Body Sit e 70431-JXWJLYY NAIL, 6 OR MORE 10/24/2024 N/A 55421-OUOO SKIN LESIONS, 2 TO 4 10/24/2024 N/A 84918-WCQSGBO NAIL, 6 OR MORE 01/25/2025 N/A 93906-KGRD SKIN LESIONS, 2 TO 4 01/25/2025 N/A 82585-AQZWJEP NAIL, 6 OR MORE 04/30/2025 N/A 98966-UQGR SKIN LESIONS, 2 TO 4 04/30/2025 N/A Encounters Encounter Location Date Provider Diagnosis [address] [address] 10/24/2024 Hollie Black Type 2 diabetes mellitus with diabetic polyneuropathy E11.42 ; Tinea unguium B35.1 ; Other hammer toe(s) (acquired), right foot M20.41 ; Other hammer toe(s) (acquired), left foot M20.42 and Xerosis of skin L85.[address] [address] 01/25/2025 Hollie Black Type 2 diabetes mellitus with diabetic polyneuropathy E11.42 and Tinea unguium B35.[address] [address] 04/30/2025 Hollie Black Type 2 diabetes mellitus with diabetic polyneuropathy E11.42 and Tinea unguium B35.1 [facility] [address] [place] [address] 05/26/2025 Hollie Black Assessments Encounter Date Diagnosis [...] Order Date *Liver Function Test (LFT) 08/05/2022 88600-YWQLTIL NAIL, 6 OR MORE 04/30/2025 96378-SNTVYRK NAIL, 6 OR MORE 10/24/2024 17472-HIHFKVB NAIL, 6 OR MORE 01/25/2025 75196-KIDMVLZ NAIL, 6 OR MORE 11/24/2021 35731-MPLPXIC NAIL, 6 OR MORE 02/09/2022 71706-BGSRNKM NAIL, 6 OR MORE 04/20/2022 06733-YKBWTXW NAIL, 6 OR MORE 06/22/2022 03903-SNFDGUG NAIL, 6 OR MORE 10/21/2023 97123-OQIEHPX NAIL, 6 OR MORE 04/27/2024 83562-Awalxqbn Plate 09/30/2023 67125-Goiejxhx Plate Each Additional 04/2024 06757- Debride <25 sq cm 10/21/2023 71064- Debride <25 sq cm 04/20/2022 62836- Debride <25 sq cm 11/24/2021 59967-DHTH SKIN LESIONS, 2 TO 4 11/25/19 22 12052-CIWI SKIN LESIONS, 2 TO 4 02/10/20 22 38934-YDNT SKIN LESIONS, 2 TO 4 04/20/20 22 44465-NBZF SKIN LESIONS, 2 TO 4 06/22/20 22 15982-TGSX SKIN LESIONS, 2 TO 4 10/21/19 24 93680-ZYKE SKIN LESIONS, 2 TO 4 10/25/19 58424-FBJA SKIN LESIONS, 2 TO 4 04/27/20 24 30232-NHHU SKIN LESIONS, 2 TO 4 04/30/20 62967-ABMB SKIN LESIONS, 2 TO 4 01/26/20 Next Appt Details Provider Name:Hollie Barksdale , 08/07/2025 09:30:00 AM, [address], [place], [address], Insurance Providers Payer Name Payer Address Payer Phone Subscriber Number Group Number Insured Name Patient Relationship to Insured Coverage Start Date Coverage End Date [facility] [address] [place] [address] [phone] [id number] Marina Sprague Self - patient is the [...]
--- OUTSIDE RECORDS SUMMARY | 2025-07-11 01:54 | XMS_ITS | Clinical Summary ---
Author Organization [facility] Address [address] [address] Phone Care Team Providers Care Rehabilitation Liaison Name Role Phone Jocelin Atkins MD Primary [...] 09/13/19 24 Active glucagon (BAQSIMI) 3 mg/actuation [place] 1 spray by Nasal route once as needed. 2 each 2 09/22/19 24 Active metFORMIN (GLUCOPHAGE-XR) 500 MG 24 hr tabletIndication s:Type 2 diabetes mellitus without complication, without long-term current use of insulin TAKE 2 TABS BEFORE DINNER AND 1 TAB BEFORE BREAKFAST. 270 tablet 4 04/05/20 24 Active FREESTYLE LITE Strp stripsIndication s:Type 2 diabetes mellitus without complication, without long-term current use of insulin TEST BLOOD SUGAR 2 (TWO) TIMES A DAY. 200 strip 3 06/10/20 25 Active TRULICITY 1.5 mg/0.5 mL subcutaneous injectionIndicat ions:Type 2 diabetes mellitus without complication, without long-term current use of insulin INJECT 0.5 ML (1.5 MG TOTAL) UNDER THE SKIN EVERY 7 DAYS 2 mL 5 06/24/20 25 Active TRULICITY 1.5 mg/0.5 mL subcutaneous injectionIndicat ions:Type 2 diabetes mellitus without complication, without long-term current use of insulin INJECT 0.5 ML (1.5 MG TOTAL) UNDER THE SKIN EVERY 7 DAYS 2 mL 5 01/17/20 25 025 Discontinued Active Problems Problem Noted Date Diagnosed [...] last visit and since starting Trulicity. Her fish frog or oyster farmer gave his blessing to start GLP1 therapy [...] some leisurely swimming and hot sun in [place]. If Marina experiences any further daytime lows, [...] with meals. Marina will first ask her fish frog or oyster farmer if he feels this would be a [...] misses the pulmonary rehab exercise program [facility]. Reviewed hypoglycemia prevention, recognition and management. Encouraged [...] we discussed, but was told by pharmacy stock clerk to not change. Reassured her that 1g [...] of different items. Encouraged her visit with music educator. No medications adjusted today. Reviewed hypoglycemia [...] presently waiting for further recommendation by her fish frog or oyster farmer at [facility]. Plan- Increase metformin to 1000 mg in the morning and continue 500 mg in the evening. Reviewed effects and actions of metformin as well as insulins (basal-bolus). Obtain SEAN-65 and C-peptide levels. Consider CGM in future as appropriate. Reviewed hypoglycemia prevention, recognition and management. Discussed recommendations and guidelines for a healthy diet with diabetes as well as importance of exercise. primary special educator referral provided. Encouraged to continue to [...] Encounters Date Type Department Care Team Description 07/09/2025 3:00 PM EST Nutrition [facility] [address] [place] [address] Sandra Tobias LDN Type 2 diabetes mellitus without complication, without long-term current use of insulin (Primary Dx) 06/21/2025 Refill [facility] [place] [address] Herminia Dumont MD Medication Refill 06/08/2025 Refill [facility] [address] [place] [address] Herminia Dumont MD Medication Refill from Last [...] EDT Inhaled Oxygen Concentration - - Weight 69.9 kg (154 lb) 07/09/2025 3:10 PM EST Height 171.5 cm (5' 7.52 ) 02/18/2025 1:19 PM ED T Body Mass Index 23.75 02/18/2025 1:19 PM EDT Plan of Treatment Upcoming Encounters Date Type Department Care Team (Late st Contact Info) Description 09/13/2025 9:40 AM EST Office Visit [facility] [address] [place] [address] Herminia Dumont MD [address] [facility], 1st [place] [address] Health Maintenance Due Date Last Done Comments POTASSIUM LEVEL 1952 DEPRESSION SCREENING 1964 SMOKING Hx and SMOKELESS TOBACCO SCREENING 1965 HEPATITIS C SCREENING 1970 COLOGUARD 1997 COLONOSCOPY 1997 COLORECTAL CANCER SCREENING 1997 FIT TEST 1997 FOBT 1997 SIGMOIDOSCOPY 1997 VIRTUAL COLONOSCOPY 1997 OSTEOPOROSIS SCREENING INITIAL (ONE-TIME) 2017 DIABETIC EYE EXAM 10/28/2021 CREATININE LEVEL 06/14/2023 06/14/2022 INFLUENZA VACCINE (#1) 2025 , 06/04/2023, 06/16/2022, Additional history exists COVID-19 VACCINE ( season) 2025 06/01/2021, 11/20/2020, 10/30/2020 BLOOD PRESSURE 08/20/2025 02/18/2025 HEMOGLOBIN A1C 01/06/2026 07/09/2025, 01/22, 08/20/2024, Additional history exists MAMMOGRAM 02/25/2027 02/25/2025 Adult Td,Tdap Booster 12/07/2029 12/08/2019 ZOSTER VACCINES [...] Maintenance Results * (ABNORMAL) POCT Hemoglobin A1c (Enter/Edit) (07/09/2025 3:32 PM EST) Hemoglobin A1c 5.8(A) 4.2 - 5.6 % [facility] 07/09/2025 3:32 PM EST us Herminia Dumont MD LAB POCT ENTER/EDIT ORDERABLES Final Result [facility] [address] [place] [address], [facility] * Comprehensive metabolic panel (06/14/2022) us Ana SAMUELS LAB BLOOD BKR ORDERABLES Fi nal Result from Last 3 Months or Most Recently Relevant to Health Maintenance Insurance [facility] Member Subscriber Plan / Payer (Ef fective 2020-) Name:Marina Sprague Relation to Subscriber:Self Name:Marina Sprague Payer ID:Not on file Type:O Address: [place] [id number] Care Teams Rehabilitation Liaison Relationship Specialty Start Date End Date Jocelin Atkins MD [address] [place] [id number] PCP - General Internal Medicine 10/21/21 Additional Source Comments The information contained in this document represents components of the legal health record. It is not the complete legal health record.[facility]
== END 2025-07-10 13:48 | disposition home or self-care (01) ==
LOC: HO.HMGAL 13:47
PROVIDERS: PCP Internal Medicine; Visit Provider Registered Nurse Emergency
DX: J30.89 Other allergic rhinitis (principal)
CPT/HCPCS: 95117; 95165

== ENCOUNTER 2025-07-29 09:46 | Outpatient (AMB) | payer OTHER, SELFPAY ==
[2025-07-29 09:49] VITALS: BP 128/78; PULSE 92; O2SAT 98; BMI 22.7
--- NOTE | 2025-07-29 09:49 | A.OFFVIS_ITS ---
Vital Signs 07/29/25 09:49 Height 5 ft 9 in Weight 154 lb BMI 22.7 BP 128/78 Blood Pressure Location Rt brachial Position Sitting Pulse 92 Pulse Source Pulse Oximeter Pulse Oximetry (%) 98 Oxygen Delivery Method Room Air Intake Visit Reasons: Dyspnea/CT Follow Up Allergies penicillin V Allergy (Unknown, Verified 07/29/25 09:53) Unknown HPI HPI Dyspnea/CT Follow Up: Details: 74-year-old lady, active approximately 30 pack-year smoker, with underlying history of multiple environmental allergies, previously on allergy shots, with prior history of remote septoplasty after nasal fractures, followed for chronic cough and mild asthma-COPD overlap syndrome.? She continues on Trelegy and albuterol MDI with reasonable control of his symptoms. She did not derive significant symptomatic benefit from theophylline and has stopped it. She does complain of ongoing productive cough in the morning with yellowish to greenish sputum. Patient is planning to travel to [facility] at the end of the month. [facility] Medical History Asthma-COPD overlap syndrome Back pain Chronic cough Osteoporosis Pulmonary nodules Thoracic compression fracture Social History Household Members: None Patient Tobacco Use Status: Current everyday Tobacco user Tobacco use type: Cigarette Cigarette Packs Per Day: 0.5 Years Smoked: 25-30yrs Second Hand Smoke Exposure: No Review of Systems Const Denies daytime sleepiness, Denies excessive sweating, Denies fatigue, Denies fever(s), Denies lethargy, Denies malaise, Denies night sweats, Denies snoring and Denies weight loss Eyes Denies blurry vision and Denies itchy eyes ENT Denies nasal congestion, Denies post nasal drip, Denies sinus pain, Denies sinus pressure and Denies other ( Thrush) Card Denies chest pain, Denies pedal edema, Denies dyspnea, Denies orthopnea and Denies paroxysmal nocturnal dyspnea Resp Reports cough, Denies hemoptysis, Reports excessive phlegm production, Denies dyspnea, Denies snoring and Denies wheezing GI Denies abdominal pain and Denies heartburn Musc Denies myalgias, Denies arthralgias and Denies joint swelling Skin/Breast Denies rash Neuro Denies memory loss and Denies seizure-like activity Psych Denies abnormal sleep pattern, Denies anxiety and Denies memory loss Endo Denies excessive sweating, Denies fatigue and Denies heat intolerance Juan Carlos/Lymph Denies easy bruising Aller/Immun Denies itchy eyes, Denies seasonal rhinorrhea and Denies wheezing Physical Exam Vital Signs: Last Vital Signs Pulse 92 07/29/25 09:49 BP 128/78 07/29/25 09:49 Pulse Ox 98 07/29/25 09:49 Oxygen Delivery Method Room Air 07/29/25 09:49 BMI result Body Mass Index 22.7 Const General: no acute distress and alert Nutritional Appearance: not obese Orientation/consciousness: Other orientation findings ( oriented) HEENT Head: Yes atraumatic Eyes General: appearance normal, both eyes and all related structures Sclerae: sclerae normal EOM: EOMs intact bilaterally Neck Neck: Yes supple Lymphatic: no lymphadenopathy noted Resp Effort & Inspection: normal respiratory effort and no use of accessory muscles Auscultation: clear to auscultation bilaterally Cardio Rate: regular rate Rhythm: regular rhythm Heart sounds: no gallops, no murmurs and no rubs Skin General skin exam: other ( warm) Extrem General: No clubbing, No cyanosis and No edema Assessment & Plan Assessment & Plan (1) Asthma-COPD overlap syndrome: Code(s): J44.9 - Chronic obstructive pulmonary disease, unspecified Category: Medical Plan: Reasonable control on current regimen of Trelegy and albuterol MDI. Continue current regimen. Will treat productive cough with a course of doxycycline. (2) Personal history of nicotine dependence: Code(s): Z87.891 - Personal history of nicotine dependence Category: Medical Plan: Results of lung cancer screening CT chest from May of 2025 reviewed, no worrisome nodules, continue with yearly screening. Coding Level of Care Code Est Pt Level 4 (92235) Diagnoses Asthma-COPD overlap syndrome J44.9 Personal history of nicotine dependence Z87.891
== END 2025-07-29 10:03 | disposition home or self-care (01) ==
LOC: HO.HPS 09:46
PROVIDERS: PCP Internal Medicine; Visit Provider Internal Medicine Pulmonary Disease
DX: J44.9 Chronic obstructive pulmonary disease, unspecified (principal); Z87.891 Personal history of nicotine dependence
CPT/HCPCS: 99214

== ENCOUNTER 2025-07-29 10:33 | Outpatient (AMB) | payer OTHER, SELFPAY ==
--- OUTSIDE RECORDS SUMMARY | 2025-07-29 17:38 | XMS_ITS | Patient Health Record ---
[facility] Address [address] [place] [address] Care Team Providers Care Die Designer Apprentice Name Role Phone Wilbert SIMPSON, Silverio Primary Care Provider Jennifer vailable Black, Hollie Unavailable [phone] Allergies Allergen (clinical drug ingredient) Drug/Non Drug Allergy documented on EMR Reaction Allergy Type Onset Date Status Shrimp Flavor Unknown Drug Allergy Act antonio Milk-related Compounds Unknown Drug Allergy Active Results Component Value Reference Range Notes HEMOGLOBIN A1C (GLYCOHEMOGLO BIN) Reviewed date:05/23/2025 10:42:15 [...] days Not-Takin g Vitamin C Active Nystatin-Triamcinolone 749509-7.1 UNIT/GM APPLY DAILY TO SKIN TO AFFECTED [...] Omeprazole 40 MG TAKE 1 CAPSULE BY [facility] EVERY DAY Oral; Duration: 90 Days [...] Polyneuropathy due to type 2 diabetes mellitus (215063867) Type 2 diabetes mellitus with diabetic polyneuropathy (E11.42) Active confirmed Vital Signs Blood pressure diastolic 82 mm Hg 04/30/2025 Height 5ft 8in in 04/30/2025 Blood pressure systolic 130 mm Hg 04/30/2025 Weight 155 lbs 04/30/2025 BMI 23.57 kg/m2 04/30/2025 Procedures Procedure Date Ordered Date Performed Result Body Sit e 84311-ZNBPDUK NAIL, 6 OR MORE 10/24/2024 N/A 72013-YGYM SKIN LESIONS, 2 TO 4 10/24/2024 N/A 23068-FBINSUB NAIL, 6 OR MORE 01/25/2025 N/A 26469-OTLY SKIN LESIONS, 2 TO 4 01/25/2025 N/A 97580-PGVCZJM NAIL, 6 OR MORE 04/30/2025 N/A 09412-GPMS SKIN LESIONS, 2 TO 4 04/30/2025 N/A Encounters Encounter Location Date Provider Diagnosis [address] [address] 10/24/2024 Hollieted Barksdale Type 2 diabetes mellitus with diabetic polyneuropathy E11.42 ; Tinea unguium B35.1 ; Other hammer toe(s) (acquired), right foot M20.41 ; Other hammer toe(s) (acquired), left foot M20.42 and Xerosis of skin L85.[address] [address] 01/25/2025 Hollie Barksdale Type 2 diabetes mellitus with diabetic polyneuropathy E11.42 and Tinea unguium B35.[address] [address] 04/30/2025 Hollie Black Type 2 diabetes mellitus with diabetic polyneuropathy E11.42 and Tinea unguium B35.1 [facility] [address] [place] [address] 05/26/2025 Hollie Black Assessments Encounter Date Diagnosis [...] Order Date *Liver Function Test (LFT) 08/05/2022 24619-CRKTQVE NAIL, 6 OR MORE 04/30/2025 65966-QRNVLPX NAIL, 6 OR MORE 10/24/2024 77046-KGORUGP NAIL, 6 OR MORE 01/25/2025 95759-KHYSQFV NAIL, 6 OR MORE 11/24/2021 62770-PTMNDPN NAIL, 6 OR MORE 02/09/2022 83201-SKZRUQA NAIL, 6 OR MORE 04/20/2022 52229-WKCQXEF NAIL, 6 OR MORE 06/22/2022 75866-OOZOQGY NAIL, 6 OR MORE 10/21/2023 85652-YXNBMJK NAIL, 6 OR MORE 04/27/2024 47474-Sxvbhjid Plate 09/30/2023 62438-Kbtrifiq Plate Each Additional 04/2024 64895- Debride <25 sq cm 10/21/2023 07981- Debride <25 sq cm 04/20/2022 61066- Debride <25 sq cm 11/24/2021 62776-AJHU SKIN LESIONS, 2 TO 4 11/25/19 22 72696-QFLW SKIN LESIONS, 2 TO 4 02/10/20 22 96619-WBMU SKIN LESIONS, 2 TO 4 04/20/20 22 13270-CTXQ SKIN LESIONS, 2 TO 4 06/22/20 22 83840-QZVX SKIN LESIONS, 2 TO 4 10/21/19 24 64779-CTIQ SKIN LESIONS, 2 TO 4 10/25/19 25 73610-GRMN SKIN LESIONS, 2 TO 4 04/27/20 24 64039-GMSO SKIN LESIONS, 2 TO 4 04/30/20 25 26875-QQSJ SKIN LESIONS, 2 TO 4 01/26/20 Next Appt Details Provider Name:Hollie Barksdale , 08/07/2025 09:30:00 AM, [address], [place], [address], Insurance Providers Payer Name Payer Address Payer Phone Subscriber Number Group Number Insured Name Patient Relationship to Insured Coverage Start Date Coverage End Date [facility] [address] [place] [address] [id number] Marina [place] Self - patient is the [...]
--- OUTSIDE RECORDS SUMMARY | 2025-07-29 17:39 | XMS_ITS | Clinical Summary ---
Author Organization [facility] Address [address] [address] Phone Care Team Providers Care Conservation Science Teacher Name Role Phone Jocelin Atkins MD Primary [...] 09/13/19 24 Active glucagon (BAQSIMI) 3 mg/actuation [place] 1 spray by Nasal route once as needed. 2 each 2 09/22/19 24 Active FREESTYLE LITE Strp stripsIndication s:Type [...] DAYS 2 mL 5 06/24/20 25 Active metFORMIN (GLUCOPHAGE-XR) 500 MG 24 hr tabletIndication s:Type 2 diabetes mellitus without complication, without long-term current use of insulin TAKE 1 TABLET BY MOUTH BEFORE BREAKFAST AND 2 TABLETS BEFORE DINNER 270 tablet 4 07/12/20 25 Active metFORMIN (GLUCOPHAGE-XR) 500 MG 24 hr tabletIndication s:Type 2 diabetes mellitus without complication, without long-term current use of insulin TAKE 2 TABS BEFORE DINNER AND 1 TAB BEFORE BREAKFAST. 270 tablet 4 04/05/20 24 025 Discontinued Active Problems Problem Noted Date [...] concerning for a few episodes of hypoglycemia Mraina is tolerating optimized GLP1ra dosing Continues on [...] per CGM, this was reviewed with Marina Mairna is interested in optimizing GLP1ra dosing, but [...] last visit and since starting Trulicity. Her candy butcher gave his blessing to start GLP1 therapy [...] some leisurely swimming and hot sun in [place]. If Marina experiences any further daytime lows, [...] with meals. Marina will first ask her candy butcher if he feels this would be a [...] misses the pulmonary rehab exercise program through [facility]. Reviewed hypoglycemia prevention, recognition and management. [...] we discussed, but was told by pharmacy grad intern to not change. Reassured her that 1g [...] presently waiting for further recommendation by her candy butcher at [facility]. Plan- Increase metformin to 1000 mg in the morning and continue 500 mg in the evening. Reviewed effects and actions of metformin as well as insulins (basal-bolus). Obtain SEAN-65 and C-peptide levels. Consider CGM in future as appropriate. Reviewed hypoglycemia prevention, recognition and management. Discussed recommendations and guidelines for a healthy diet with diabetes as well as importance of exercise. family living educator referral provided. Encouraged to continue to [...] Encounters Date Type Department Care Team Description 07/12/2025 Refill [facility] [address] [place] [address] Herminia Dumont MD Medication Refill 07/09/2025 3:00 PM EST Nutrition [address] [place] [address] Sandra Tobias LDN Type 2 diabetes mellitus without complication, without long-term current use of insulin (Primary Dx) 06/21/2025 Refill [facility] [address] [place] [address] Herminia Dumont MD Medication Refill 06/08/2025 Refill [facility] [address] [place] [address] [place] [address] Herminia Dumont MD Medication Refill from Last [...] Description 09/13/2025 9:40 AM EST Office Visit [facility] [address] [place] [address] Herminia Dumont MD [address] [place] [address], [address] [place] [address] [email or web address] Health Maintenance Due Date Last Done Comments [...] PRESSURE 08/20/2025 02/18/2025 HEMOGLOBIN A1C 01/06/2026 07/09/2025, 06/3 , 08/20/2024, Additional history exists MAMMOGRAM 02/25/2027 02/25/2025 [...] Hemoglobin A1c 5.8(A) 4.2 - 5.6 % [facility] 07/09/2025 3:32 PM EST us Herminia Dumont MD LAB POCT ENTER/EDIT ORDERABLES Final Result CADET [employer]cr[employer] [facility] [address] [place] [address], [facility] * Comprehensive metabolic panel (06/14/2022) us Ana SAMUELS LAB BLOOD BKR ORDERABLES Fi nal Result from Last 3 Months or Most Recently Relevant to Health Maintenance [facility] Care Teams Conservation Science Teacher Relationship Specialty Start Date End Date Jocelin Atkins MD [address] [place] [id number] PCP - General Internal Medicine 10/21/21 Additional Source Comments The information contained in this document represents components of the legal health record. It is not the complete legal health record.[facility]
== END 2025-07-29 10:33 | disposition home or self-care (01) ==
LOC: HO.HMGAL 10:33
PROVIDERS: PCP Internal Medicine; Visit Provider Registered Nurse Emergency
DX: J30.89 Other allergic rhinitis (principal)
CPT/HCPCS: 95117; 95165